=== PATIENT | female | born 1935 | race Caucasian/White ===

== ENCOUNTER 2020-01-22 14:26 | Emergency (ER) | payer MEDICARE ==
--- NOTE | 2020-01-22 14:37 | EDM.PDOC ---
ED HPI GENERAL MEDICAL PROBLEM - General Chief Complaint: Neuro Symptoms/Deficits Stated Complaint: POSSIBLE STROKE Time Seen by Provider: 01/22/20 14:27 - History of Present Illness INITIAL COMMENTS - FREE TEXT/NARRATIVE: 84-year-old female not chronically debilitated but with a history of hypertension and hyperlipidemia is presenting with right sided facial droop. Patient first noticed this yesterday when her mouth leaked while she was trying to drink pop. No dizziness no facial pain no numbness no lightheadedness no dizziness no weakness no difficulty walking no other neurologic symptoms symptoms constant and stable without exacerbating or alleviating factors radiation or other associated symptoms. No prior history of stroke. - Related Data Allergies Allergy/AdvReac Type Severity Reaction Status Date / Time Penicillins Allergy Cannot Verified 01/22/20 14:33 Remember Home Meds: Home Meds Furosemide 20 mg PO DAILY 01/06/16 [History] Losartan Potassium 25 mg PO BEDTIME 01/06/16 [History] Metoprolol Succinate 50 mg PO DAILY 01/06/16 [History] Vitamin E 800 unit PO 01/08/16 [History] atorvaSTATin [Lipitor] 20 mg PO DAILY 01/08/16 [History] Acetaminophen/HYDROcodone [[place] 325-5 MG] 1 tab PO Q6H PRN #60 tablet 01/11/16 [Rx] Aspirin [Aspirin EC] 325 mg PO BID #60 tablet. 01/11/16 [Rx] Docusate Sodium [Colace] 100 mg PO BID #30 cap 01/11/16 [Rx] predniSONE [Prednisone] 50 mg PO DAILY 7 Days #7 tablet 01/22/20 [Rx] valACYclovir [Valtrex] 1,000 mg PO TID #21 tablet 01/22/20 [Rx] Past Medical History HEENT History: Reports: Cataract, Other (See Below) Other HEENT History: Cataracts not matured yet Cardiovascular History: Reports: Hypertension Other Cardiovascular History: Hypertension, Hypertensive heart disease Respiratory History: Reports: Asthma Other Respiratory History: hx: Smoking, reports Quit over 20 yrs ago Gastrointestinal History: Reports: Chronic Constipation Genitourinary History: Reports: Chronic Renal Insuffiency Musculoskeletal History: Reports: Arthritis, Osteoarthritis Endocrine/Metabolic History: Reports: Obesity/BMI 30+ - Past Surgical History Musculoskeletal Surgical History: Reports: Other (See Below) Social & Family History - Family History : Reports: Other (See Below) Other Family History: renal failure Neurological: Reports: CVA ED ROS GENERAL - Review of Systems Review Of Systems: See Below Free Text/Narrative/Comment: General: No fever. Skin: No rash. Eyes: No vision problems. ENT: No sore throat. Neck: No neck stiffness. Respiratory: No shortness of breath. Cardiac: No chest pain. Gastrointestinal: No nausea, vomiting or abdominal pain. Urinary: No dysuria. Musculoskeletal: No myalgias/arthralgias. Neurologic: Per HPI ED EXAM, GENERAL - Physical Exam Exam: See Below Free Text/Narrative:: General Appearance: No acute distress, appears comfortable Skin: No rash HEENT: Normocephalic/atraumatic, sclera anicteric, mucous membranes moist Neck: Normal range of motion Chest and Lungs: Bilateral breath sounds, clear to auscultation Cardiovascular: Regular rate and rhythm, no murmur Abdomen: Soft, non-tender Back: Normal Musculoskeletal: No edema or tenderness Neurologic: Alert and oriented x3, normal [id number] bilaterally, no visual field cut to confrontation, extraocular movements intact, right-sided facial droop that involves the forehead, equal strength bilateral upper and lower extremities Psychiatric: Appropriate, cooperative EKG INTERPRETATION EKG Date: 01/22/20 Time: 15:02 EKG Interpretation Comments: Normal sinus rhythm rate of 92 Q waves inferiorly normal intervals no acute ischemia Course - Vital Signs Last Recorded V/S: Last Vital Signs Temp 97.8 F 01/22/20 14:28 Pulse 90 01/22/20 14:28 Resp 18 01/22/20 14:28 BP 140/59 L 01/22/20 14:28 Pulse Ox 92 L 01/22/20 14:28 - Orders/Labs/Meds Orders: Active Orders 24 hr Category Date Time Status Assess Neurological Status [RC] ASDIRECTED Care 01/22/20 14:35 Active EKG Documentation Completion [RC] STAT Care 01/22/20 14:35 Active Height and Weight [RC] UPON Care 01/22/20 14:35 Active Initiate Acute Stroke Protocol [RC] STAT Care 01/22/20 14:35 Active NIH Stroke Scale [RC] ASDIRECTED Care 01/22/20 14:35 Active Nursing Bedside Swallow Screen [RC] ASDIRECTED Care 01/22/20 14:35 Active Stroke Education, General [RC] Click to Edit Care 01/22/20 14:35 Active Labs: Laboratory Tests 01/22/20 01/22/20 01/22/20 Range/Units 15:05 15:05 15:05 WBC 5.86 (4.0-11.0) K/uL RBC 4.89 (4.30-5.90) M/uL Hgb 14.3 (12.0-16.0) g/dL Hct 44.3 (36.0-46.0) % MCV 90.6 (80.0-98.0) fL MCH 29.2 (27.0-32.0) pg MCHC 32.3 (31.0-37.0) g/dL RDW Std Deviation 47.1 (28.0-62.0) fl RDW Coeff of Win 14 (11.0-15.0) % Plt Count 129 L (150-400) K/uL MPV 9.90 (7.40-12.00) fL Neut % (Auto) 61.8 (48.0-80.0) % Lymph % (Auto) 30.0 (16.0-40.0) % [place] % (Auto) 6.5 (0.0-15.0) % Eos % (Auto) 1.4 (0.0-7.0) % Baso % (Auto) 0.3 (0.0-1.5) % Neut # (Auto) 3.6 (1.4-5.7) K/uL Lymph # (Auto) 1.8 (0.6-2.4) K/uL [place] # (Auto) 0.4 (0.0-0.8) K/uL Eos # (Auto) 0.1 (0.0-0.7) K/uL Baso # (Auto) 0.0 (0.0-0.1) K/uL Nucleated RBC % 0.0 /100WBC Nucleated RBCs # 0 K/uL INR 1.06 APTT 23.4 (18.6-31.3) SEC Sodium 142 (136-145) mmol/L Potassium 4.3 (3.5-5.1) mmol/L Chloride 108 H (98-107) mmol/L Carbon Dioxide 23.1 (21.0-32.0) mmol/L BUN 24 H (7.0-18.0) mg/dL Creatinine 1.7 H (0.6-1.0) mg/dL Est Cr Clr Drug Dosing 16.47 mL/min Estimated GFR (MDRD) 28.5 ml/min Glucose 128 H (74-106) mg/dL Calcium 8.5 (8.5-10.1) mg/dL Total Bilirubin 0.7 (0.2-1.0) mg/dL AST 22 (15-37) IU/L ALT 23 (14-63) IU/L Alkaline Phosphatase 78 (46-116) U/L Troponin I < 0.050 (0.000-0.056) ng/mL Total Protein 7.1 (6.4-8.2) g/dL Albumin 3.8 (3.4-5.0) g/dL Globulin 3.3 (2.6-4.0) g/dL Albumin/Globulin Ratio 1.2 (0.9-1.6) Free T4 (0.76-1.46) ng/dL TSH 3rd Generation 5.92 H (0.36-3.74) uIU/mL 01/22/20 Range/Units 15:05 WBC (4.0-11.0) K/uL RBC (4.30-5.90) M/uL Hgb (12.0-16.0) g/dL Hct (36.0-46.0) % MCV (80.0-98.0) fL MCH (27.0-32.0) pg MCHC (31.0-37.0) g/dL RDW Std Deviation (28.0-62.0) fl RDW Coeff of Win (11.0-15.0) % Plt Count (150-400) K/uL MPV (7.40-12.00) fL Neut % (Auto) (48.0-80.0) % Lymph % (Auto) (16.0-40.0) % [place] % (Auto) (0.0-15.0) % Eos % (Auto) (0.0-7.0) % Baso % (Auto) (0.0-1.5) % Neut # (Auto) (1.4-5.7) K/uL Lymph # (Auto) (0.6-2.4) K/uL [place] # (Auto) (0.0-0.8) K/uL Eos # (Auto) (0.0-0.7) K/uL Baso # (Auto) (0.0-0.1) K/uL Nucleated RBC % /100WBC Nucleated RBCs # K/uL INR APTT (18.6-31.3) SEC Sodium (136-145) mmol/L Potassium (3.5-5.1) mmol/L Chloride (98-107) mmol/L Carbon Dioxide (21.0-32.0) mmol/L BUN (7.0-18.0) mg/dL Creatinine (0.6-1.0) mg/dL Est Cr Clr Drug Dosing mL/min Estimated GFR (MDRD) ml/min Glucose (74-106) mg/dL Calcium (8.5-10.1) mg/dL Total Bilirubin (0.2-1.0) mg/dL AST (15-37) IU/L ALT (14-63) IU/L Alkaline Phosphatase (46-116) U/L Troponin I (0.000-0.056) ng/mL Total Protein (6.4-8.2) g/dL Albumin (3.4-5.0) g/dL Globulin (2.6-4.0) g/dL Albumin/Globulin Ratio (0.9-1.6) Free T4 0.90 (0.76-1.46) ng/dL TSH 3rd Generation (0.36-3.74) uIU/mL Departure - Departure Time of Disposition: 16:28 Disposition: Home, Self-Care 01 Condition: Good Clinical Impression: John's palsy - Discharge Information *PRESCRIPTION DRUG MONITORING PROGRAM REVIEWED*: Not Applicable *COPY OF PRESCRIPTION DRUG MONITORING REPORT IN PATIENT CARMELA: Not Applicable Prescriptions: predniSONE [Prednisone] 50 mg PO DAILY 7 Days #7 tablet valACYclovir [Valtrex] 1,000 mg PO TID #21 tablet Instructions: John Palsy, Adult Referrals: Louie Scruggs MD [Primary Care Provider] - 1 Week Forms: ED Department Discharge Additional Instructions: Please apply the antibiotic ointment to your eye each night and tape your eye lid shut. This will prevent your eye from drying out. Please be sure to follow-up with your primary care doctor. Sepsis Event Note (ED) - Focused Exam Vital Signs: Vital Signs Temp Pulse Resp BP Pulse Ox 01/22/20 14:28 97.8 F 90 18 140/59 L 92 L - My Orders Last 24 Hours: My Active Orders 01/22/20 14:35 Assess Neurological Status [RC] ASDIRECTED EKG Documentation Completion [RC] STAT Height and Weight [RC] UPON Initiate Acute Stroke Protocol [RC] STAT NIH Stroke Scale [RC] ASDIRECTED Nursing Bedside Swallow Screen [RC] ASDIRECTED Stroke Education, General [RC] Click to Edit - Assessment/Plan Last 24 Hours: My Active Orders 01/22/20 14:35 Assess Neurological Status [RC] ASDIRECTED EKG Documentation Completion [RC] STAT Height and Weight [RC] UPON Initiate Acute Stroke Protocol [RC] STAT NIH Stroke Scale [RC] ASDIRECTED Nursing Bedside Swallow Screen [RC] ASDIRECTED Stroke Education, General [RC] Click to Edit Assessment:: 84-year-old female with stroke risk factors presenting with signs and symptoms that are most consistent with John's palsy. Attempt to clinically exclude stroke was made by testing the sensation of taste on its lateral tongue however the patient had difficulty with this test and the test does not clearly conclusive. Given this and her advanced age and stroke history and stroke evaluation with EKG relevant blood work and CT scan is prudent. That said her clinical syndrome is so consistent with John's palsy that I would not admit the patient for further work-up unless something was found on the initial evaluation. If the initial evaluation is negative patient will be able to go home with John's palsy treatment and primary care follow-up. Labs are normal CT scan is normal will treat for John's palsy patient will follow-up with her primary care doctor.
--- NOTE | 2020-01-22 15:07 | CT ---
Head CT Technique: Multiple axial sections through the brain were obtained. Intravenous contrast was not utilized. Comparison: No prior intracranial imaging is available. Findings: Ventricles along with basal cisterns and sulci over convexities are mildly prominent. No abnormal parenchymal densities are seen. No evidence of intracranial hemorrhage. No midline shift or mass-effect is seen. Atherosclerotic plaque is seen within the carotid siphon. Bone window setting showed no acute calvarial finding. Visualized paranasal sinuses and mastoid sinuses show nothing acute. Impression: 1. Mild senescent change. 2. No acute intracranial abnormality is identified. Diagnostic code #2 This report was dictated in MDT
[2020-01-22 15:45] LABS: BLOOD UREA NITROGEN,BUN 24 mg/dL (7.0-18.0); CARBON DIOXIDE,CO2 23.1 mmol/L (21.0-32.0); CHLORIDE,CL 108 mmol/L (98-107); GLUCOSE RANDOM 128 mg/dL (74-106); POTASSIUM,K 4.3 mmol/L (3.5-5.1); SODIUM,NA 142 mmol/L (136-145)
[2020-01-22] MEDS ORDERED: Erythromycin Base 0.5% Ophth Oint 1 GM Tube EYEBOTH ONE (16:30)
[2020-01-23 01:28] VITALS: BP 127/83; PULSE 97
== END 2020-01-22 16:55 | disposition home or self-care (01) ==
LOC: MW.ED 14:26
DX: G51.0 Bell's palsy (principal); M19.90 Unspecified osteoarthritis, unspecified site; I12.9 Hypertensive chronic kidney disease with stage 1 through stage 4 chronic kidney disease, or unspecified chronic kidney disease; N18.9 Chronic kidney disease, unspecified; E66.9 Obesity, unspecified; Z68.35 Body mass index [BMI] 35.0-35.9, adult; Z88.0 Allergy status to penicillin; Z79.82 Long term (current) use of aspirin; Z79.899 Other long term (current) drug therapy
CPT/HCPCS: 36415; 70450; 80053; 84439; 84443; 84484; 85025; 85610; 85730; 93005; 99284; A9270

== ENCOUNTER 2021-04-02 11:30 | Inpatient (IN) | payer MEDICARE ==
[2021-04-02] MEDS ORDERED: Dexamethasone 10 MG/ML SDV IVPUSH ONE (11:39)
[2021-04-02] MEDS ORDERED: Sodium Chloride 0.9% 10 ML Syringe FLUSH PRN (11:39)
[2021-04-02] MEDS ORDERED: Sodium Chloride 0.9% 2.5 ML Syringe FLUSH PRN (11:39)
[2021-04-02] MEDS ORDERED: Albuterol/Ipratropium 3.0-0.5 MG/3 ML Neb Soln NEB ONE (11:39)
--- NOTE | 2021-04-02 12:33 | CR ---
INDICATION: Dyspnea COMPARISON: None TECHNIQUE: Single-view portable chest radiograph FINDINGS: TUBES AND LINES: None. HEART AND MEDIASTINUM: The heart size is normal. The mediastinal contour appears normal for patient age. LUNGS AND PLEURAL SPACES: Given soft tissue attenuation factors, the lungs appear to be clear.The pleural spaces are unremarkable. OSSEOUS STRUCTURES: Age-appropriate appearance. No acute focal finding. IMPRESSION: No evidence of active pulmonary disease. Dictated by Caesar Stone MD @ 04/02/2021 12:31:51 PM (Electronically Signed)
[2021-04-02 13:14] LABS: CORONAVIRUS COVID-19 NAA POSITIVE (NEGATIVE); INFLUENZA A NAA NEGATIVE (NEGATIVE); INFLUENZA B NAA NEGATIVE (NEGATIVE)
[2021-04-02 14:30] LABS: CARBON DIOXIDE,CO2 16.6 mmol/L (21.0-32.0); POTASSIUM,K 4.6 mmol/L (3.5-5.1)
[2021-04-02] MEDS ORDERED: Sodium Chloride 0.9% 1,000 ML IV ONE (14:49)
[2021-04-02] MEDS ORDERED: REMDESIVIR 200 MG in Sodium Chloride 0.9% 250 ML IV ONE (14:54)
[2021-04-02] MEDS ORDERED: Sodium Chloride 0.9% 500 ML IV SCH (15:45)
[2021-04-02] MEDS: Metoprolol Succinate 50 MG Tab.ER PO SCH (16:16)
[2021-04-02] MEDS: amLODIPine 5 MG Tab PO SCH (16:16)
[2021-04-02] MEDS: Apixaban 5 MG Tab PO SCH (17:16)
[2021-04-02] MEDS: Nystatin Topical Powder 15 GM Bottle TOP SCH ×2 (17:18→21:06)
[2021-04-02] MEDS: Dexamethasone 4 MG Tab PO SCH (18:51)
[2021-04-02] MEDS: Albuterol/Ipratropium 3.0-0.5 MG/3 ML Neb Soln NEB SCH ×2 (18:52→21:06)
[2021-04-03] MEDS: Albuterol/Ipratropium 3.0-0.5 MG/3 ML Neb Soln NEB SCH ×4 (01:59→13:32)
[2021-04-03] MEDS: Apixaban 5 MG Tab PO SCH (06:14)
[2021-04-03] MEDS: Nystatin Topical Powder 15 GM Bottle TOP SCH ×2 (06:14→13:32)
[2021-04-03] MEDS ORDERED: Losartan 50 MG Tab PO SCH (09:00)
[2021-04-03] MEDS: Dexamethasone 4 MG Tab PO SCH (09:16)
[2021-04-03] MEDS: Metoprolol Succinate 50 MG Tab.ER PO SCH (09:17)
[2021-04-03] MEDS: amLODIPine 5 MG Tab PO SCH (09:18)
[2021-04-03] MEDS ORDERED: REMDESIVIR 100 MG in Sodium Chloride 0.9% 100 ML IV SCH (14:30)
[2021-04-03 14:50] VITALS: BP 143/65; PULSE 76
== END 2021-04-03 14:10 | disposition home or self-care (01) | DRG 177 ==
LOC: MW.ED 11:30 → MW.MS 15:11
PROVIDERS: ADMIT Internal Medicine; ATTEND Internal Medicine
PROC: XW033E5 Introduction of Remdesivir Anti-infective into Peripheral Vein, Percutaneous Approach, New Technology Group 5 (ICD-10-PCS; principal; 2021-04-02)
PROC: 3E0333Z Introduction of Anti-inflammatory into Peripheral Vein, Percutaneous Approach (ICD-10-PCS; 2021-04-02)
DX: U07.1 COVID-19 (principal); J12.82 Pneumonia due to coronavirus disease 2019; J96.01 Acute respiratory failure with hypoxia; N17.9 Acute kidney failure, unspecified; Z87.891 Personal history of nicotine dependence; E78.5 Hyperlipidemia, unspecified; I12.9 Hypertensive chronic kidney disease with stage 1 through stage 4 chronic kidney disease, or unspecified chronic kidney disease; J45.909 Unspecified asthma, uncomplicated; M19.90 Unspecified osteoarthritis, unspecified site; E66.9 Obesity, unspecified; Z88.0 Allergy status to penicillin; Z79.899 Other long term (current) drug therapy; K59.09 Other constipation; E86.0 Dehydration; E11.22 Type 2 diabetes mellitus with diabetic chronic kidney disease; I13.10 Hypertensive heart and chronic kidney disease without heart failure, with stage 1 through stage 4 chronic kidney disease, or unspecified chronic kidney disease; N18.9 Chronic kidney disease, unspecified; Z98.42 Cataract extraction status, left eye; Z98.41 Cataract extraction status, right eye; Z90.49 Acquired absence of other specified parts of digestive tract; Z90.710 Acquired absence of both cervix and uterus; Z79.4 Long term (current) use of insulin
CPT/HCPCS: 0240U; 36415; 36600; 71045; 80053; 82803; 83605; 83880; 84484; 85025; 85379; 93005; 97161; 97165; 96374; 99285-25; A9270-GY; J1100; J7030; J7040; J7050; J7620-GY; J8540

== ENCOUNTER 2021-04-07 19:43 | Inpatient (IN) | payer MEDICARE ==
--- NOTE | 2021-04-07 20:48 | EDM.PDOC ---
ED HPI GENERAL MEDICAL PROBLEM - General Chief Complaint: Respiratory Problem Stated Complaint: COVID PNEUMONIA, WEAKNESSS Time Seen by Provider: 04/07/21 19:50 Source of Information: Reports: Patient History Limitations: Reports: No Limitations - History of Present Illness INITIAL COMMENTS - FREE TEXT/NARRATIVE: Patient presents via EMS. Her daughter called the ambulance because her mom has become increasingly sleepy, forgetful and less responsive today. The patient was seen in this emergency room on April 02, 2021 for shortness of breath, weakness, malaise and occasional cough after recently being diagnosed with Covid. In the emergency room her white count was 4.9, D-dimer 6.5, lactic acid 2.1, BUN 91, creatinine 3.4. Blood gases pH 7.3, PCO2 26, P O2 57, bicarb 15, anion gap 16. Influenza negative. Covid positive. EKG with nonspecific changes, mildly tachycardic at 110. Pulse ox was 89 to 92% on room air. Admitted to hospitalist service for Covid pneumonia and acute renal failure. The patient was treated with dexamethasone oral, DuoNeb, remdesivir. Her oxygen saturation was over 90% the majority of time as inpatient. Walking trial over 90% so she was discharged to home on April 03. Her daughter states that when she got home she did very well the first couple of days being up and about, eating drinking and voiding without problems. Late yesterday and today she has progressively gotten more sleepy and had to be repeatedly coached to take her medications even though they were in her hand. On admission the patient is able to tell me her birthdate and where she is. She is quite sleepy and requires repeated questioning to keep her awake enough to answer. She denies any chest pain, shortness of breath, abdominal pain, nausea, dysuria. She states she had a good bowel movement today. Her daughter states she has never complained of anything in her life so she is an unreliable informant. Her daughter also states that previous to her hospitalization the family believes she was not taking her medications. Since she came home from the hospital however her family has set up her medications and watched her take them. - Related Data Allergies Allergy/AdvReac Type Severity Reaction Status Date / Time Penicillins Allergy Cannot Verified 04/07/21 19:55 Remember Home Meds: Home Meds Losartan Potassium 50 mg PO BEDTIME 01/06/16 [History] Metoprolol Succinate 50 mg PO DAILY 01/06/16 [History] atorvaSTATin [Lipitor] 20 mg PO BEDTIME 04/02/21 [History] Erythromycin Base [Erythromycin 0.5% Ophth Oint] 1 dose DAILY 04/07/21 [History] amLODIPine [Norvasc] 5 mg PO DAILY 04/07/21 [History] Past Medical History HEENT History: Reports: Cataract, Other (See Below) Other HEENT History: Cataracts not matured yet Cardiovascular History: Reports: Hypertension Other Cardiovascular History: Hypertension, Hypertensive heart disease Respiratory History: Reports: None Other Respiratory History: hx: Smoking, reports Quit over 20 yrs ago Gastrointestinal History: Reports: Chronic Constipation Genitourinary History: Reports: Chronic Renal Insuffiency Musculoskeletal History: Reports: Arthritis, Osteoarthritis Neurological History: Reports: None Endocrine/Metabolic History: Reports: Obesity/BMI 30+ Dermatologic History: Reports: None, Other (See Below) Other Dermatologic History: Yeast under bilateral breasts - Infectious Disease History Infectious Disease History: Reports: Measles, Mumps - Past Surgical History HEENT Surgical History: Reports: Cataract Surgery GI Surgical History: Reports: Appendectomy Female Surgical History: Reports: Hysterectomy Other Female Surgeries/Procedures: reports Vaginal Hysterectomy Musculoskeletal Surgical History: Reports: Other (See Below) Other Musculoskeletal Surgeries/Procedures:: Bilateral RTC repairs Social & Family History - Family History Family Medical History: No Pertinent Family History : Reports: Other (See Below) Other Family History: renal failure Neurological: Reports: CVA - Tobacco Use Tobacco Use Status *Q: Former Tobacco User Used Tobacco, but Quit: Yes Month/Year Tobacco Last Used: 10 - Caffeine Use Caffeine Use: Reports: Coffee - Recreational Drug Use Recreational Drug Use: No ED ROS GENERAL - Review of Systems Review Of Systems: Comprehensive ROS is negative, except as noted in HPI. Skin: Reports: Other (extremely dry skin on legs.) ED EXAM, GENERAL - Physical Exam Exam: See Below Exam Limited By: Altered Mental Status General Appearance: Other (sleepy) Nose: Normal Inspection Throat/Mouth: Normal Inspection Head: Atraumatic, Normocephalic Neck: Normal Inspection Respiratory/Chest: No Respiratory Distress, Lungs Clear, Normal Breath Sounds, Other (O2sat 88% on room air on admission, 93% on O2 4 L/m) Cardiovascular: Normal Peripheral Pulses, Regular Rate, Rhythm, No Murmur GI/Abdominal: Normal Bowel Sounds, Soft, Non-Tender, No Distention Extremities: Normal Inspection, No Pedal Edema Neurological: Oriented Psychiatric: Normal Affect, Normal Mood Skin Exam: Warm, Dry, Intact, Normal Color, No Rash Lymphatic: No Adenopathy Course - Vital Signs Last Recorded V/S: Last Vital Signs Temp 36.6 C 04/07/21 19:59 Pulse 71 04/07/21 21:33 Resp 20 04/07/21 21:33 BP 151/75 H 04/07/21 21:33 Pulse Ox 94 L 04/07/21 21:33 - Orders/Labs/Meds Orders: Active Orders 24 hr Category Date Time Status Patient Status [ADT] Stat ADT 04/07/21 22:07 Active CULTURE BLOOD [BC] Stat Lab 04/07/21 20:48 Results CULTURE BLOOD [BC] Stat Lab 04/07/21 20:54 Received Labs: Laboratory Tests 04/07/21 04/07/21 04/07/21 Range/Units 20:54 20:54 20:54 WBC 7.09 (4.0-11.0) K/uL RBC 5.70 (4.30-5.90) M/uL Hgb 16.7 H (12.0-16.0) g/dL Hct 49.8 H (36.0-46.0) % MCV 87.4 (80.0-98.0) fL MCH 29.3 (27.0-32.0) pg MCHC 33.5 (31.0-37.0) g/dL RDW Std Deviation 50.1 (28.0-62.0) fl RDW Coeff of Win 16 H (11.0-15.0) % Plt Count 141 L (150-400) K/uL MPV 10.70 (7.40-12.00) fL Neut % (Auto) 90.9 H (48.0-80.0) % Lymph % (Auto) 4.2 L (16.0-40.0) % [place] % (Auto) 4.8 (0.0-15.0) % Eos % (Auto) 0.0 (0.0-7.0) % Baso % (Auto) 0.1 (0.0-1.5) % Neut # (Auto) 6.4 H (1.4-5.7) K/uL Lymph # (Auto) 0.3 L (0.6-2.4) K/uL [place] # (Auto) 0.3 (0.0-0.8) K/uL Eos # (Auto) 0.0 (0.0-0.7) K/uL Baso # (Auto) 0.0 (0.0-0.1) K/uL Nucleated RBC % 0.0 /100WBC Nucleated RBCs # 0 K/uL Sodium 140 (136-145) mmol/L Potassium 5.6 H (3.5-5.1) mmol/L Chloride 107 (98-107) mmol/L Carbon Dioxide 20.8 L (21.0-32.0) mmol/L BUN 63 H (7.0-18.0) mg/dL Creatinine 2.0 H (0.6-1.0) mg/dL Est Cr Clr Drug Dosing TNP Estimated GFR (MDRD) 23.6 ml/min Glucose 231 H (74-106) mg/dL Lactic Acid 2.0 (0.4-2.0) mmol/L Calcium 8.5 (8.5-10.1) mg/dL Total Bilirubin 1.2 H (0.2-1.0) mg/dL AST 33 (15-37) IU/L ALT 56 (14-63) IU/L Alkaline Phosphatase 64 (46-116) U/L Troponin I < 0.050 (0.000-0.056) ng/mL Total Protein 7.5 (6.4-8.2) g/dL Albumin 3.1 L (3.4-5.0) g/dL Globulin 4.4 H (2.6-4.0) g/dL Albumin/Globulin Ratio 0.7 L (0.9-1.6) Urine Color Urine Appearance Urine pH (5.0-8.0) Ur Specific [place] (1.001-1.035) Urine Protein (NEGATIVE) mg/dL Urine Glucose (UA) (NEGATIVE) mg/dL Urine Ketones (NEGATIVE) mg/dL Urine Occult Blood (NEGATIVE) Urine Nitrite (NEGATIVE) Urine Bilirubin (NEGATIVE) Urine Urobilinogen (<2.0) EU/dL Ur Leukocyte Esterase (NEGATIVE) U Hyaline Cast (Auto) (0-2/LPF) Urine RBC (0-2/HPF) Urine WBC (0-5/HPF) Ur Epithelial Cells (NONE-FEW) Urine Bacteria (NEGATIVE) 04/07/21 Range/Units 21:25 WBC (4.0-11.0) K/uL RBC (4.30-5.90) M/uL Hgb (12.0-16.0) g/dL Hct (36.0-46.0) % MCV (80.0-98.0) fL MCH (27.0-32.0) pg MCHC (31.0-37.0) g/dL RDW Std Deviation (28.0-62.0) fl RDW Coeff of Win (11.0-15.0) % Plt Count (150-400) K/uL MPV (7.40-12.00) fL Neut % (Auto) (48.0-80.0) % Lymph % (Auto) (16.0-40.0) % [place] % (Auto) (0.0-15.0) % Eos % (Auto) (0.0-7.0) % Baso % (Auto) (0.0-1.5) % Neut # (Auto) (1.4-5.7) K/uL Lymph # (Auto) (0.6-2.4) K/uL [place] # (Auto) (0.0-0.8) K/uL Eos # (Auto) (0.0-0.7) K/uL Baso # (Auto) (0.0-0.1) K/uL Nucleated RBC % /100WBC Nucleated RBCs # K/uL Sodium (136-145) mmol/L Potassium (3.5-5.1) mmol/L Chloride (98-107) mmol/L Carbon Dioxide (21.0-32.0) mmol/L BUN (7.0-18.0) mg/dL Creatinine (0.6-1.0) mg/dL Est Cr Clr Drug Dosing Estimated GFR (MDRD) ml/min Glucose (74-106) mg/dL Lactic Acid (0.4-2.0) mmol/L Calcium (8.5-10.1) mg/dL Total Bilirubin (0.2-1.0) mg/dL AST (15-37) IU/L ALT (14-63) IU/L Alkaline Phosphatase (46-116) U/L Troponin I (0.000-0.056) ng/mL Total Protein (6.4-8.2) g/dL Albumin (3.4-5.0) g/dL Globulin (2.6-4.0) g/dL Albumin/Globulin Ratio (0.9-1.6) Urine Color YELLOW Urine Appearance HAZY Urine pH 5.5 (5.0-8.0) Ur Specific [place] 1.025 (1.001-1.035) Urine Protein 30 H (NEGATIVE) mg/dL Urine Glucose (UA) NEGATIVE (NEGATIVE) mg/dL Urine Ketones NEGATIVE (NEGATIVE) mg/dL Urine Occult Blood NEGATIVE (NEGATIVE) Urine Nitrite NEGATIVE (NEGATIVE) Urine Bilirubin NEGATIVE (NEGATIVE) Urine Urobilinogen 1.0 (<2.0) EU/dL Ur Leukocyte Esterase NEGATIVE (NEGATIVE) U Hyaline Cast (Auto) 0-1 (0-2/LPF) Urine RBC 0-2 (0-2/HPF) Urine WBC 0-4 (0-5/HPF) Ur Epithelial Cells OCCASIONAL (NONE-FEW) Urine Bacteria FEW (NEGATIVE) - Re-Assessments/Exams Free Text/Narrative Re-Assessment/Exam: 04/07/21 22:[address] Bao Zimmer, hospitalist service regarding admission. Refer to observation. Departure - Departure Time of Disposition: 22:16 Disposition: Refer to Observation Condition: Good Clinical Impression: Hypoxia - Discharge Information Forms: ED Department Discharge Sepsis Event Note (ED) - Evaluation Sepsis Screening Result: No Definite Risk - Focused Exam Vital Signs: Vital Signs Temp Pulse Resp BP Pulse Ox 04/07/21 21:33 71 20 151/75 H 94 L 04/07/21 20:45 74 20 157/64 H 95 04/07/21 20:30 68 18 147/71 H 94 L 04/07/21 20:15 77 19 153/71 H 95 04/07/21 19:59 36.6 C 85 18 116/57 L 94 L - My Orders Last 24 Hours: My Active Orders 04/07/21 20:48 CULTURE BLOOD [BC] Stat 04/07/21 20:54 CULTURE BLOOD [BC] Stat 04/07/21 22:07 Patient Status [ADT] Stat - Assessment/Plan Last 24 Hours: My Active Orders 04/07/21 20:48 CULTURE BLOOD [BC] Stat 04/07/21 20:54 CULTURE BLOOD [BC] Stat 04/07/21 22:07 Patient Status [ADT] Stat
[2021-04-07 21:33] LABS: BLOOD UREA NITROGEN,BUN 63 mg/dL (7.0-18.0); CARBON DIOXIDE,CO2 20.8 mmol/L (21.0-32.0); CHLORIDE,CL 107 mmol/L (98-107); GLUCOSE RANDOM 231 mg/dL (74-106); POTASSIUM,K 5.6 mmol/L (3.5-5.1); SODIUM,NA 140 mmol/L (136-145)
--- NOTE | 2021-04-07 21:40 | CR ---
Indication: Shortness of breath, COVID infection Technique: Chest 1 view Comparison: Chest x-ray 04/02/2021 Findings/Impression: Cardiovascular and mediastinum: Normal heart size with atherosclerotic calcification. Lungs and pleural space: No pleural effusion or pneumothorax. Slight patchy opacities at the lung bases suggestive of pneumonia and mildly worsened compared to the prior exam. Bones and soft tissues: Attachment hooks left proximal humerus. Left glenohumeral osteoarthritis. Dictated by Catracho Crooks MD @ 04/07/2021 9:39:38 PM (Electronically Signed)
--- NOTE | 2021-04-08 00:22 | PCM.EKG ---
#1 Interpretation EKG Date: 04/07/21 Time: 20:24 EKG Interpretation Comments: EKG: As interpreted by ER physician: [place]: Nonspecific ST-T wave abnormalities Normal axis No evidence of ST elevation [place] Normal sinus rhythm heart rate of 82
[2021-04-08 07:35] LABS: CARBON DIOXIDE,CO2 20.3 mmol/L (21.0-32.0); POTASSIUM,K 5.2 mmol/L (3.5-5.1)
--- NOTE | 2021-04-08 07:43 | PCM.HP.2 ---
H&P History of Present Illness - General Date of Service: 04/08/21 Admit Problem/Dx: Admission Diagnosis/Problem Admission Diagnosis/Problem Hypoxia - History of Present Illness Initial Comments - Free Text/Narative: The patient is a 85-year-old female, on day 1 of service, who has a significant past medical history of hypertension, hyperlipidemia, and recent COVID-19 infection, was admitted to the medical floor due to generalized weakness secondary to COVID-19 pneumonia. Much of this history was obtained by the patient's daughter, Monica Carty, who admits that after her mother's most recent discharge from the hospital she was acting like herself and doing well for the subsequent 2 to 3 days before she started to feel weak in regards to her activities of daily living. 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 Her mother was also increasingly fatigued and was eating and drinking less than regular. Monica admits that her mother would have to be cued in order to take her medication and to be compliant with them. It came to the point where things became concerning and today she brought her into the emergency department to be checked. The patient has allergies to penicillin, and in regards to her social history she used to smoke cigarettes 20+ years ago and had a [id number] history. She does not consume alcohol or use recreational drugs. On CBC, her white blood cell count is 7.09, hemoglobin is 16.7, hematocrit is 49.8, and platelet count is 141. On CMP, her sodium is 140, potassium is 5.6, chloride is 107, carbon dioxide is 20.8, BUN is 63, creatinine is 2.0, glucose is 231. On chest x-ray, slight patchy opacities are seen in the lung bases which are worse than prior exam. EKG shows normal sinus rhythm. In the emergency department, the patient had 2 different blood cultures drawn and sent for analysis, as well as the above test including a CBC, CMP, chest x- ray, and EKG. - Related Data Allergies/Adverse Reactions: Allergies Allergy/AdvReac Type Severity Reaction Status Date / Time Penicillins Allergy Cannot Verified 04/07/21 23:55 Remember Home Medications: Home Meds Losartan Potassium 50 mg PO BEDTIME 01/06/16 [History] Metoprolol Succinate 50 mg PO DAILY 09/06/16 [History] atorvaSTATin [Lipitor] 20 mg PO BEDTIME 04/02/21 [History] Erythromycin Base [Erythromycin 0.5% Ophth Oint] 1 dose DAILY 04/07/21 [History] amLODIPine [Norvasc] 5 mg PO DAILY 04/07/21 [History] Past Medical History HEENT History: Reports: Cataract, Other (See Below) Other HEENT History: Cataracts not matured yet Cardiovascular History: Reports: High Cholesterol, Hypertension Other Cardiovascular History: Hypertension, Hypertensive heart disease Respiratory History: Reports: None Other Respiratory History: hx: Smoking, reports Quit over 20 yrs ago Gastrointestinal History: Reports: Chronic Constipation Genitourinary History: Reports: Chronic Renal Insuffiency Musculoskeletal History: Reports: Arthritis, Osteoarthritis Neurological History: Reports: None Endocrine/Metabolic History: Reports: Obesity/BMI 30+ Dermatologic History: Reports: None, Other (See Below) Other Dermatologic History: Yeast under bilateral breasts - Infectious Disease History Infectious Disease History: Reports: Measles, Mumps - Past Surgical History HEENT Surgical History: Reports: Cataract Surgery GI Surgical History: Reports: Appendectomy Female Surgical History: Reports: Hysterectomy Musculoskeletal Surgical History: Reports: Other (See Below) Other Musculoskeletal Surgeries/Procedures:: Bilateral RTC repairs Social & Family History - Family History Family Medical History: No Pertinent Family History : Reports: Other (See Below) Other Family History: renal failure Neurological: Reports: CVA - Tobacco Use Tobacco Use Status *Q: Former Tobacco User Used Tobacco, but Quit: Yes Month/Year Tobacco Last Used: 1999 Second Hand Smoke Exposure: No - Caffeine Use Caffeine Use: Reports: Coffee - Recreational Drug Use Recreational Drug Use: No H&P Review of Systems - Review of Systems: Review Of Systems: See Below General: Reports: Other (The patient was too fatigued/sleepy to answer ROS questions, HPI obtained by her daughter Monica Carty) Exam - Exam Exam: See Below - Vital Signs Vital Signs: Last Vital Signs Temp 96.9 F 04/08/21 03:42 Pulse 71 04/08/21 03:42 Resp 22 H 04/08/21 03:42 BP 142/52 H 04/08/21 03:42 Pulse Ox 93 L 04/08/21 03:42 Weight: 191 lb 1.617 oz - Exam General: Lethargic HEENT: Mucosa Moist & [place], Normal Nasal Septum Neck: Trachea Midline Lungs: Decreased Breath Sounds Cardiovascular: Regular Rate, Regular Rhythm GI/Abdominal Exam: Normal Bowel Sounds, Soft, Non-Tender Extremities: No Pedal Edema - Patient Data Lab Results Last 24 hrs: Laboratory Results - last 24 hr 04/07/21 04/07/21 04/07/21 Range/Units 20:54 20:54 20:54 WBC 7.09 (4.0-11.0) K/uL RBC 5.70 (4.30-5.90) M/uL Hgb 16.7 H (12.0-16.0) g/dL Hct 49.8 H (36.0-46.0) % MCV 87.4 (80.0-98.0) fL MCH 29.3 (27.0-32.0) pg MCHC 33.5 (31.0-37.0) g/dL RDW Std Deviation 50.1 (28.0-62.0) fl RDW Coeff of Win 16 H (11.0-15.0) % Plt Count 141 L (150-400) K/uL MPV 10.70 (7.40-12.00) fL Neut % (Auto) 90.9 H (48.0-80.0) % Lymph % (Auto) 4.2 L (16.0-40.0) % [place] % (Auto) 4.8 (0.0-15.0) % Eos % (Auto) 0.0 (0.0-7.0) % Baso % (Auto) 0.1 (0.0-1.5) % Neut # (Auto) 6.4 H (1.4-5.7) K/uL Lymph # (Auto) 0.3 L (0.6-2.4) K/uL [place] # (Auto) 0.3 (0.0-0.8) K/uL Eos # (Auto) 0.0 (0.0-0.7) K/uL Baso # (Auto) 0.0 (0.0-0.1) K/uL Nucleated RBC % 0.0 /100WBC Nucleated RBCs # 0 K/uL Sodium 140 (136-145) mmol/L Potassium 5.6 H (3.5-5.1) mmol/L Chloride 107 (98-107) mmol/L Carbon Dioxide 20.8 L (21.0-32.0) mmol/L BUN 63 H (7.0-18.0) mg/dL Creatinine 2.0 H (0.6-1.0) mg/dL Est Cr Clr Drug Dosing TNP Estimated GFR (MDRD) 23.6 ml/min Glucose 231 H (74-106) mg/dL Lactic Acid 2.0 (0.4-2.0) mmol/L Calcium 8.5 (8.5-10.1) mg/dL Total Bilirubin 1.2 H (0.2-1.0) mg/dL AST 33 (15-37) IU/L ALT 56 (14-63) IU/L Alkaline Phosphatase 64 (46-116) U/L Troponin I < 0.050 (0.000-0.056) ng/mL Total Protein 7.5 (6.4-8.2) g/dL Albumin 3.1 L (3.4-5.0) g/dL Globulin 4.4 H (2.6-4.0) g/dL Albumin/Globulin Ratio 0.7 L (0.9-1.6) Urine Color Urine Appearance Urine pH (5.0-8.0) Ur Specific [place] (1.001-1.035) Urine Protein (NEGATIVE) mg/dL Urine Glucose (UA) (NEGATIVE) mg/dL Urine Ketones (NEGATIVE) mg/dL Urine Occult Blood (NEGATIVE) Urine Nitrite (NEGATIVE) Urine Bilirubin (NEGATIVE) Urine Urobilinogen (<2.0) EU/dL Ur Leukocyte Esterase (NEGATIVE) U Hyaline Cast (Auto) (0-2/LPF) Urine RBC (0-2/HPF) Urine WBC (0-5/HPF) Ur Epithelial Cells (NONE-FEW) Urine Bacteria (NEGATIVE) 04/07/21 Range/Units 21:25 WBC (4.0-11.0) K/uL RBC (4.30-5.90) M/uL Hgb (12.0-16.0) g/dL Hct (36.0-46.0) % MCV (80.0-98.0) fL MCH (27.0-32.0) pg MCHC (31.0-37.0) g/dL RDW Std Deviation (28.0-62.0) fl RDW Coeff of Win (11.0-15.0) % Plt Count (150-400) K/uL MPV (7.40-12.00) fL Neut % (Auto) (48.0-80.0) % Lymph % (Auto) (16.0-40.0) % [place] % (Auto) (0.0-15.0) % Eos % (Auto) (0.0-7.0) % Baso % (Auto) (0.0-1.5) % Neut # (Auto) (1.4-5.7) K/uL Lymph # (Auto) (0.6-2.4) K/uL [place] # (Auto) (0.0-0.8) K/uL Eos # (Auto) (0.0-0.7) K/uL Baso # (Auto) (0.0-0.1) K/uL Nucleated RBC % /100WBC Nucleated RBCs # K/uL Sodium (136-145) mmol/L Potassium (3.5-5.1) mmol/L Chloride (98-107) mmol/L Carbon Dioxide (21.0-32.0) mmol/L BUN (7.0-18.0) mg/dL Creatinine (0.6-1.0) mg/dL Est Cr Clr Drug Dosing Estimated GFR (MDRD) ml/min Glucose (74-106) mg/dL Lactic Acid (0.4-2.0) mmol/L Calcium (8.5-10.1) mg/dL Total Bilirubin (0.2-1.0) mg/dL AST (15-37) IU/L ALT (14-63) IU/L Alkaline Phosphatase (46-116) U/L Troponin I (0.000-0.056) ng/mL Total Protein (6.4-8.2) g/dL Albumin (3.4-5.0) g/dL Globulin (2.6-4.0) g/dL Albumin/Globulin Ratio (0.9-1.6) Urine Color YELLOW Urine Appearance HAZY Urine pH 5.5 (5.0-8.0) Ur Specific [place] 1.025 (1.001-1.035) Urine Protein 30 H (NEGATIVE) mg/dL Urine Glucose (UA) NEGATIVE (NEGATIVE) mg/dL Urine Ketones NEGATIVE (NEGATIVE) mg/dL Urine Occult Blood NEGATIVE (NEGATIVE) Urine Nitrite NEGATIVE (NEGATIVE) Urine Bilirubin NEGATIVE (NEGATIVE) Urine Urobilinogen 1.0 (<2.0) EU/dL Ur Leukocyte Esterase NEGATIVE (NEGATIVE) U Hyaline Cast (Auto) 0-1 (0-2/LPF) Urine RBC 0-2 (0-2/HPF) Urine WBC 0-4 (0-5/HPF) Ur Epithelial Cells OCCASIONAL (NONE-FEW) Urine Bacteria FEW (NEGATIVE) Result Diagrams: 04/07/21 20:54 04/08/21 06:35 Paul Results Last 24 hrs: Microbiology 04/07/21 20:48 Anaerobic Blood Culture - Final Blood Sepsis Event Note - Evaluation Sepsis Screening Result: No Definite Risk - Focused Exam Vital Signs: Vital Signs Temp Pulse Resp BP Pulse Ox 04/08/21 03:42 96.9 F 71 22 H 142/52 H 93 L 04/07/21 23:32 98.9 F 74 24 H 166/81 H 93 L 04/07/21 22:45 76 20 151/74 H 95 04/07/21 21:45 70 18 148/71 H 94 L 04/07/21 21:33 71 20 151/75 H 94 L 04/07/21 20:45 74 20 157/64 H 95 04/07/21 20:30 68 18 147/71 H 94 L 04/07/21 20:15 77 19 153/71 H 95 04/07/21 19:59 97.9 F 85 18 116/57 L 94 L - Problem List (1) Weakness SNOMED Code(s): 69377333 ICD Code: R53.1 - WEAKNESS Status: Acute Current Visit: Yes (2) HTN (hypertension) SNOMED Code(s): 49453995 ICD Code: I10 - ESSENTIAL (PRIMARY) HYPERTENSION Status: Acute Current Visit: Yes (3) Hyperlipidemia SNOMED Code(s): 33817544 ICD Code: E78.5 - HYPERLIPIDEMIA, UNSPECIFIED Status: Acute Current Visit: Yes (4) Acute renal failure SNOMED Code(s): 63062125 ICD Code: N17.9 - ACUTE KIDNEY FAILURE, UNSPECIFIED Status: Acute Current Visit: No (5) Acute respiratory failure due to COVID-19 SNOMED Code(s): 587521675 ICD Code: U07.1 - COVID-19; J96.00 - ACUTE RESPIRATORY FAILURE, UNSP W HYPOXIA OR HYPERCAPNIA Status: Acute Current Visit: No Problem List Initiated/Reviewed/Updated: Yes Orders Last 24hrs: Active Orders 24 hr Category Date Time Status Patient Status [ADT] Stat ADT 04/07/21 22:07 Active Regular Diet [DIET] Diet 04/08/21 Breakfast Active BASIC METABOLIC PANEL,BMP [CHEM] Routine Lab 04/08/21 05:30 Received CULTURE BLOOD [BC] Stat Lab 04/07/21 20:48 Results CULTURE BLOOD [BC] Stat Lab 04/07/21 20:54 Received dexAMETHasone Med 04/08/21 09:00 Active 6 mg PO DAILY Medication Orders Dexamethasone (Dexamethasone 4 Mg Tab) 6 mg PO DAILY [facility] Assessment/Plan Comment:: Admit the patient to the medical floor, vitals per unit routine, activity up ad sergio., DVT prophylaxis with Lovenox 40 mg once a day subcutaneously, GI prophy laxis with pantoprazole 40 mg per oral route once a day, according to the patient's daughter Monica Carty the patient is a DNI/DNR 1. Generalized weakness secondary to COVID-19 -Initiate remdesivir, 200 mg IV loading dose followed by 4 bags of 100 mg per IV route 24 hours later, 1 bag to be given each day -Start dexamethasone 6 mg -Supply oxygen as needed -Duo nebulizers are on board -PT/OT daily to build strength -CBC in a.m. 2. Hyperglycemia -ADA diabetic diet is in place -Insulin sliding scale/NovoLog 3. STEFANI -We will continue to monitor labs with daily CMP and treat accordingly 4. Past medical history of hypertension and hyperlipidemia -Continue home amlodipine, atorvastatin, losartan, metoprolol
[2021-04-08] MEDS ORDERED: 50% Dextrose in Water 50 ML Syringe IVPUSH PRN (08:15)
[2021-04-08] MEDS ORDERED: Glucagon,Human Recombinant 1 MG Vial IM PRN (08:15)
[2021-04-08] MEDS: Pantoprazole 40 MG Tab.CR PO SCH (09:24)
[2021-04-08] MEDS: Dexamethasone 4 MG Tab PO SCH (09:24)
[2021-04-08] MEDS: Enoxaparin 30 MG/0.3 ML Syringe SUBCUT SCH (09:25)
[2021-04-08] MEDS: Insulin Aspart 100 Units/ML 3 ML Pen SUBCUT SCH ×3 (13:03→21:06)
[2021-04-08] MEDS: Albuterol/Ipratropium 3.0-0.5 MG/3 ML Neb Soln NEB SCH ×3 (14:11→21:04)
[2021-04-08] MEDS ORDERED: REMDESIVIR 200 MG in Sodium Chloride 0.9% 250 ML IV ONE (14:15)
[2021-04-08] MEDS: amLODIPine 5 MG Tab PO SCH (17:34)
[2021-04-08] MEDS: Metoprolol Succinate 50 MG Tab.ER PO SCH (17:34)
[2021-04-08] MEDS: atorvaSTATin 20 MG Tab PO SCH (21:03)
[2021-04-08] MEDS: Losartan 50 MG Tab PO SCH (21:04)
[2021-04-09] MEDS: Albuterol/Ipratropium 3.0-0.5 MG/3 ML Neb Soln NEB SCH ×6 (02:38→21:01)
[2021-04-09 06:33] LABS: CARBON DIOXIDE,CO2 17.4 mmol/L (21.0-32.0); POTASSIUM,K 5.3 mmol/L (3.5-5.1)
[2021-04-09] MEDS: Insulin Aspart 100 Units/ML 3 ML Pen SUBCUT SCH ×4 (07:49→20:59)
[2021-04-09] MEDS: Pantoprazole 40 MG Tab.CR PO SCH (08:08)
[2021-04-09] MEDS: Metoprolol Succinate 50 MG Tab.ER PO SCH (08:08)
[2021-04-09] MEDS: amLODIPine 5 MG Tab PO SCH (08:08)
[2021-04-09] MEDS: Dexamethasone 4 MG Tab PO SCH (08:08)
[2021-04-09] MEDS: Enoxaparin 30 MG/0.3 ML Syringe SUBCUT SCH (08:09)
[2021-04-09] MEDS ORDERED: Sodium Chloride 0.45% 1,000 ML IV SCH (09:45)
--- NOTE | 2021-04-09 11:39 | PCM.PN ---
- General Info Date of Service: 04/09/21 Subjective Update: The patient is a 85-year-old female, on day 2 of service, who has a significant past medical history of hypertension, hyperlipidemia, and recent COVID-19 infection, was admitted to the medical floor due to generalized weakness secondary to COVID-19 pneumonia. Upon interview with the patient today she continues to have weakness and is a poor historian. She was sleeping through much of the interview. Her labs today showed increased amounts of sodium, potassium, and chloride in her blood. As a result she will be started on 500 mL of half-normal saline in order to level these out at a rate of 125 mL/h. She is currently saturating 88% on 2 L of oxygen. She has not been eating her meals and when I attempted to give her some of her breakfast she refused. We will continue to have physical therapy/occupational therapy work with this patient in order to build her strength. The patient continues to have STEFANI. There are no other health concerns at this time. - Review of Systems General: Reports: Other (The patient is a poor historian) - Patient Data Vitals - Most Recent: Last Vital Signs Temp 97 F 04/09/21 11:00 Pulse 88 04/09/21 11:00 Resp 20 04/09/21 11:00 BP 129/69 04/09/21 11:00 Pulse Ox 92 L 04/09/21 11:00 Weight - Most Recent: 191 lb 1.617 oz I&O - Last 24 Hours: Intake & Output 04/08/21 04/09/21 04/09/21 22:59 06:59 14:59 Intake Total 540 Balance 540 Lab Results Last 24 Hours: Laboratory Results - last 24 hr 04/08/21 04/08/21 04/08/21 Range/Units 13:00 17:28 20:57 WBC (4.0-11.0) K/uL RBC (4.30-5.90) M/uL Hgb (12.0-16.0) g/dL Hct (36.0-46.0) % MCV (80.0-98.0) fL MCH (27.0-32.0) pg MCHC (31.0-37.0) g/dL RDW Std Deviation (28.0-62.0) fl RDW Coeff of Win (11.0-15.0) % Plt Count (150-400) K/uL MPV (7.40-12.00) fL Neut % (Auto) (48.0-80.0) % Lymph % (Auto) (16.0-40.0) % [place] % (Auto) (0.0-15.0) % Eos % (Auto) (0.0-7.0) % Baso % (Auto) (0.0-1.5) % Neut # (Auto) (1.4-5.7) K/uL Lymph # (Auto) (0.6-2.4) K/uL [place] # (Auto) (0.0-0.8) K/uL Eos # (Auto) (0.0-0.7) K/uL Baso # (Auto) (0.0-0.1) K/uL Nucleated RBC % /100WBC Nucleated RBCs # K/uL Sodium (136-145) mmol/L Potassium (3.5-5.1) mmol/L Chloride (98-107) mmol/L Carbon Dioxide (21.0-32.0) mmol/L BUN (7.0-18.0) mg/dL Creatinine (0.6-1.0) mg/dL Est Cr Clr Drug Dosing mL/min Estimated GFR (MDRD) ml/min Glucose (74-106) mg/dL POC Glucose 149 H 218 H 266 H (70-99) mg/dL Calcium (8.5-10.1) mg/dL Total Bilirubin (0.2-1.0) mg/dL AST (15-37) IU/L ALT (14-63) IU/L Alkaline Phosphatase (46-116) U/L Total Protein (6.4-8.2) g/dL Albumin (3.4-5.0) g/dL Globulin (2.6-4.0) g/dL Albumin/Globulin Ratio (0.9-1.6) 04/09/21 04/09/21 04/09/21 Range/Units 05:08 05:08 06:13 WBC 8.32 (4.0-11.0) K/uL RBC 5.10 (4.30-5.90) M/uL Hgb 14.7 (12.0-16.0) g/dL Hct 44.7 (36.0-46.0) % MCV 87.6 (80.0-98.0) fL MCH 28.8 (27.0-32.0) pg MCHC 32.9 (31.0-37.0) g/dL RDW Std Deviation 50.9 (28.0-62.0) fl RDW Coeff of Win 16 H (11.0-15.0) % Plt Count 158 (150-400) K/uL MPV 10.60 (7.40-12.00) fL Neut % (Auto) 90.2 H (48.0-80.0) % Lymph % (Auto) 5.3 L (16.0-40.0) % [place] % (Auto) 4.4 (0.0-15.0) % Eos % (Auto) 0.0 (0.0-7.0) % Baso % (Auto) 0.1 (0.0-1.5) % Neut # (Auto) 7.5 H (1.4-5.7) K/uL Lymph # (Auto) 0.4 L (0.6-2.4) K/uL [place] # (Auto) 0.4 (0.0-0.8) K/uL Eos # (Auto) 0.0 (0.0-0.7) K/uL Baso # (Auto) 0.0 (0.0-0.1) K/uL Nucleated RBC % 0.3 /100WBC Nucleated RBCs # 0 K/uL Sodium 146 H (136-145) mmol/L Potassium 5.3 H (3.5-5.1) mmol/L Chloride 113 H (98-107) mmol/L Carbon Dioxide 17.4 L (21.0-32.0) mmol/L BUN 63 H (7.0-18.0) mg/dL Creatinine 2.1 H (0.6-1.0) mg/dL Est Cr Clr Drug Dosing 16.98 mL/min Estimated GFR (MDRD) 22.3 ml/min Glucose 177 H (74-106) mg/dL POC Glucose 168 H (70-99) mg/dL Calcium 8.3 L (8.5-10.1) mg/dL Total Bilirubin 0.9 (0.2-1.0) mg/dL AST 22 (15-37) IU/L ALT 42 (14-63) IU/L Alkaline Phosphatase 52 (46-116) U/L Total Protein 6.7 (6.4-8.2) g/dL Albumin 2.6 L (3.4-5.0) g/dL Globulin 4.1 H (2.6-4.0) g/dL Albumin/Globulin Ratio 0.6 L (0.9-1.6) Paul Results Last 24 Hours: Microbiology 04/07/21 20:54 Aerobic Blood Culture - Preliminary Blood NO GROWTH AFTER 1 DAY Anaerobic Blood Culture - Preliminary NO GROWTH AFTER 1 DAY 04/07/21 20:48 Aerobic Blood Culture - Preliminary Blood NO GROWTH AFTER 1 DAY Anaerobic Blood Culture - Final Med Orders - Current: Current Medications Albuterol/Ipratropium (Albuterol/Ipratropium 3.0-0.5 Mg/3 Ml Neb Soln) 3 ml NEB Q4HRRT [facility] Last Admin: 04/09/21 11:10 Dose: 3 ml Documented by: Amlodipine Besylate (Amlodipine 5 Mg Tab) 5 mg PO DAILY [facility] Last Admin: 04/09/21 08:08 Dose: 5 mg Documented by: Atorvastatin Calcium (Atorvastatin 20 Mg Tab) 20 mg PO BEDTIME [facility] Last Admin: 04/08/21 21:03 Dose: 20 mg Documented by: Dexamethasone (Dexamethasone 4 Mg Tab) 6 mg PO DAILY [facility] Last Admin: 04/09/21 08:08 Dose: 6 mg Documented by: Dextrose/Water (50% Dextrose In Water 50 Ml Syringe) 50 ml IVPUSH ASDIRECTED PRN PRN Reason: Hypoglycemia Enoxaparin Sodium (Enoxaparin 30 Mg/0.3 Ml Syringe) 30 mg SUBCUT Q24H [facility] Last Admin: 04/09/21 08:09 Dose: 30 mg Documented by: Glucagon (Glucagon,Human Recombinant 1 Mg Vial) 1 mg IM ASDIRECTED PRN PRN Reason: Hypoglycemia Remdesivir 100 mg/ Sodium (Chloride) 100 mls @ 100 mls/hr IV Q24H [facility] Stop: 04/12/21 14:59 Sodium Chloride (Sodium Chloride 0.45%) 1,000 mls @ 125 mls/hr IV ASDIRECTED [facility] Last Admin: 04/09/21 09:57 Dose: 125 mls/hr Documented by: Insulin Aspart (Insulin Aspart 100 Units/Ml 3 Ml Pen) 0 unit SUBCUT QIDACANDBED [facility]; Protocol Last Admin: 04/09/21 07:49 Dose: 1 unit Documented by: Losartan Potassium (Losartan 50 Mg Tab) 50 mg PO BEDTIME [facility] Last Admin: 04/08/21 21:04 Dose: 50 mg Documented by: Metoprolol Succinate (Metoprolol Succinate 50 Mg Tab.Er) 50 mg PO DAILY [facility] Last Admin: 04/09/21 08:08 Dose: 50 mg Documented by: Pantoprazole Sodium (Pantoprazole 40 Mg Tab.Cr) 40 mg PO DAILY [facility] Last Admin: 04/09/21 08:08 Dose: 40 mg Documented by: Discontinued Medications Remdesivir 200 mg/ Sodium (Chloride) 250 mls @ 250 mls/hr IV ONETIME ONE Stop: 04/08/21 15:14 Last Admin: 04/08/21 14:51 Dose: 250 mls/hr Documented by: - Exam General: No Acute Distress, Lethargic HEENT: No: Mucous Membr. Moist/[place] Neck: Trachea Midline Lungs: Clear to Auscultation, Normal Respiratory Effort Cardiovascular: Regular Rate, Regular Rhythm, No Murmurs GI/Abdominal Exam: Normal Bowel Sounds, Soft, Non-Tender - Patient Data Lab Results Last 24 hrs: Laboratory Results - last 24 hr 04/08/21 04/08/21 04/08/21 Range/Units 13:00 17:28 20:57 WBC (4.0-11.0) K/uL RBC (4.30-5.90) M/uL Hgb (12.0-16.0) g/dL Hct (36.0-46.0) % MCV (80.0-98.0) fL MCH (27.0-32.0) pg MCHC (31.0-37.0) g/dL RDW Std Deviation (28.0-62.0) fl RDW Coeff of Win (11.0-15.0) % Plt Count (150-400) K/uL MPV (7.40-12.00) fL Neut % (Auto) (48.0-80.0) % Lymph % (Auto) (16.0-40.0) % [place] % (Auto) (0.0-15.0) % Eos % (Auto) (0.0-7.0) % Baso % (Auto) (0.0-1.5) % Neut # (Auto) (1.4-5.7) K/uL Lymph # (Auto) (0.6-2.4) K/uL [place] # (Auto) (0.0-0.8) K/uL Eos # (Auto) (0.0-0.7) K/uL Baso # (Auto) (0.0-0.1) K/uL Nucleated RBC % /100WBC Nucleated RBCs # K/uL Sodium (136-145) mmol/L Potassium (3.5-5.1) mmol/L Chloride (98-107) mmol/L Carbon Dioxide (21.0-32.0) mmol/L BUN (7.0-18.0) mg/dL Creatinine (0.6-1.0) mg/dL Est Cr Clr Drug Dosing mL/min Estimated GFR (MDRD) ml/min Glucose (74-106) mg/dL POC Glucose 149 H 218 H 266 H (70-99) mg/dL Calcium (8.5-10.1) mg/dL Total Bilirubin (0.2-1.0) mg/dL AST (15-37) IU/L ALT (14-63) IU/L Alkaline Phosphatase (46-116) U/L Total Protein (6.4-8.2) g/dL Albumin (3.4-5.0) g/dL Globulin (2.6-4.0) g/dL Albumin/Globulin Ratio (0.9-1.6) 04/09/21 04/09/21 04/09/21 Range/Units 05:08 05:08 06:13 WBC 8.32 (4.0-11.0) K/uL RBC 5.10 (4.30-5.90) M/uL Hgb 14.7 (12.0-16.0) g/dL Hct 44.7 (36.0-46.0) % MCV 87.6 (80.0-98.0) fL MCH 28.8 (27.0-32.0) pg MCHC 32.9 (31.0-37.0) g/dL RDW Std Deviation 50.9 (28.0-62.0) fl RDW Coeff of Win 16 H (11.0-15.0) % Plt Count 158 (150-400) K/uL MPV 10.60 (7.40-12.00) fL Neut % (Auto) 90.2 H (48.0-80.0) % Lymph % (Auto) 5.3 L (16.0-40.0) % [place] % (Auto) 4.4 (0.0-15.0) % Eos % (Auto) 0.0 (0.0-7.0) % Baso % (Auto) 0.1 (0.0-1.5) % Neut # (Auto) 7.5 H (1.4-5.7) K/uL Lymph # (Auto) 0.4 L (0.6-2.4) K/uL [place] # (Auto) 0.4 (0.0-0.8) K/uL Eos # (Auto) 0.0 (0.0-0.7) K/uL Baso # (Auto) 0.0 (0.0-0.1) K/uL Nucleated RBC % 0.3 /100WBC Nucleated RBCs # 0 K/uL Sodium 146 H (136-145) mmol/L Potassium 5.3 H (3.5-5.1) mmol/L Chloride 113 H (98-107) mmol/L Carbon Dioxide 17.4 L (21.0-32.0) mmol/L BUN 63 H (7.0-18.0) mg/dL Creatinine 2.1 H (0.6-1.0) mg/dL Est Cr Clr Drug Dosing 16.98 mL/min Estimated GFR (MDRD) 22.3 ml/min Glucose 177 H (74-106) mg/dL POC Glucose 168 H (70-99) mg/dL Calcium 8.3 L (8.5-10.1) mg/dL Total Bilirubin 0.9 (0.2-1.0) mg/dL AST 22 (15-37) IU/L ALT 42 (14-63) IU/L Alkaline Phosphatase 52 (46-116) U/L Total Protein 6.7 (6.4-8.2) g/dL Albumin 2.6 L (3.4-5.0) g/dL Globulin 4.1 H (2.6-4.0) g/dL Albumin/Globulin Ratio 0.6 L (0.9-1.6) Result Diagrams: 04/09/21 05:08 04/09/21 05:08 Paul Results Last 24 hrs: Microbiology 04/07/21 20:54 Aerobic Blood Culture - Preliminary Blood NO GROWTH AFTER 1 DAY Anaerobic Blood Culture - Preliminary NO GROWTH AFTER 1 DAY 04/07/21 20:48 Aerobic Blood Culture - Preliminary Blood NO GROWTH AFTER 1 DAY Anaerobic Blood Culture - Final Sepsis Event Note - Evaluation Sepsis Screening Result: No Definite Risk - Focused Exam Vital Signs: Vital Signs Temp Pulse Pulse Resp BP BP Pulse Ox 04/09/21 11:00 97 F 88 20 129/69 92 L 04/09/21 08:08 87 154/73 H 04/09/21 07:46 97.4 F 87 21 H 154/73 H 91 L 04/09/21 03:00 97.6 F 89 24 H 173/93 H 88 L - Problem List & Annotations (1) Weakness SNOMED Code(s): 73234303 Code(s): R53.1 - WEAKNESS Status: Acute Current Visit: Yes (2) HTN (hypertension) SNOMED Code(s): 66891690 Code(s): I10 - ESSENTIAL (PRIMARY) HYPERTENSION Status: Acute Current Visit: Yes (3) Hyperlipidemia SNOMED Code(s): 36449688 Code(s): E78.5 - HYPERLIPIDEMIA, UNSPECIFIED Status: Acute Current Visit: Yes (4) Acute renal failure SNOMED Code(s): 84646522 Code(s): N17.9 - ACUTE KIDNEY FAILURE, UNSPECIFIED Status: Acute Current Visit: No (5) Acute respiratory failure due to COVID-19 SNOMED Code(s): 208303059 Code(s): U07.1 - COVID-19; J96.00 - ACUTE RESPIRATORY FAILURE, UNSP W HYPOXIA OR HYPERCAPNIA Status: Acute Current Visit: No (6) Electrolyte abnormality SNOMED Code(s): 882676192 Code(s): E87.8 - OTH DISORDERS OF ELECTROLYTE AND FLUID BALANCE, NEC Status: Acute Current Visit: Yes - Problem List Review Problem List Initiated/Reviewed/Updated: Yes - My Orders Last 24 Hours: My Active Orders 04/08/21 11:30 Insulin Aspart [NovoLOG] See Protocol SUBCUT QIDACANDBED 04/08/21 13:23 Admission Status [Patient Status] [ADT] Routine 04/08/21 13:28 Code Status [Resuscitation Status] Routine 04/08/21 13:31 RT Aerosol Therapy [RC] ASDIRECTED 04/08/21 13:32 OT Evaluation and Treatment [CONS] Routine PT Evaluation and Treatment [CONS] Routine 04/08/21 14:00 Albuterol/Ipratropium [DuoNeb 3.0-0.5 MG/3 ML] 3 ml NEB Q4HRRT 04/08/21 15:30 Metoprolol Succinate [Toprol XL] 50 mg PO DAILY amLODIPine [Norvasc] 5 mg PO DAILY 04/08/21 21:00 Losartan [Cozaar] 50 mg PO BEDTIME atorvaSTATin [Lipitor] 20 mg PO BEDTIME 04/09/21 09:45 Sodium Chloride 0.45% 1,000 ml IV ASDIRECTED 04/09/21 14:00 Remdesivir 100 mg Sodium Chloride 0.9% [Normal Saline AdvBag] 100 ml IV Q24H 04/10/21 05:11 CBC WITH AUTO DIFF [HEME] AM CMP [COMPREHENSIVE METABOLIC PN,CMP] [CHEM] AM - Plan Plan:: 1. Generalized weakness secondary to COVID-19 -Continue remdesivir, dexamethasone -Supply oxygen as needed, currently 88% on 2 L -Duo nebulizers are on board -PT/OT daily to build strength -CBC in a.m. 2. Hyperglycemia -ADA diabetic diet is in place -Insulin sliding scale/NovoLog 3. STEFANI -Half-normal saline bolus has been initiated, continue to monitor labs with daily CMP and treat accordingly 4. Electrolyte imbalance-hypernatremia, hyperkalemia, hyperchloremia -We have initiated half normal saline 500 mL bolus, 125 mL/h and will continue to monitor 5. Past medical history of hypertension and hyperlipidemia -Continue home amlodipine, atorvastatin, losartan, metoprolol
[2021-04-09] MEDS: REMDESIVIR 100 MG in Sodium Chloride 0.9% 100 ML IV SCH (13:30)
[2021-04-09] MEDS: Losartan 50 MG Tab PO SCH (20:58)
[2021-04-09] MEDS: atorvaSTATin 20 MG Tab PO SCH (20:58)
[2021-04-10] MEDS: Albuterol/Ipratropium 3.0-0.5 MG/3 ML Neb Soln NEB SCH ×6 (01:40→21:45)
[2021-04-10 06:47] LABS: CARBON DIOXIDE,CO2 17.9 mmol/L (21.0-32.0); POTASSIUM,K 4.9 mmol/L (3.5-5.1)
[2021-04-10] MEDS: Insulin Aspart 100 Units/ML 3 ML Pen SUBCUT SCH ×4 (08:48→21:44)
[2021-04-10] MEDS: Metoprolol Succinate 50 MG Tab.ER PO SCH (08:50)
[2021-04-10] MEDS: Pantoprazole 40 MG Tab.CR PO SCH (08:53)
[2021-04-10] MEDS: Dexamethasone 4 MG Tab PO SCH (08:53)
[2021-04-10] MEDS: amLODIPine 5 MG Tab PO SCH (08:53)
[2021-04-10] MEDS: Enoxaparin 30 MG/0.3 ML Syringe SUBCUT SCH (08:54)
--- NOTE | 2021-04-10 11:52 | PCM.PN ---
- General Info Date of Service: 04/10/21 Subjective Update: The patient is a 85-year-old female, on day 3 of service, who has a significant past medical history of hypertension, hyperlipidemia, and recent COVID-19 infection, was admitted to the medical floor due to generalized weakness secondary to COVID-19 pneumonia. Physical therapy was unable to work with this patient yesterday due to patient refusal. Upon interview with the patient today, it was explained to her that she has weakness secondary to her COVID-19 a nd that it is absolutely essential that she works with physical therapy in order to build up her strength and to be independent in regards to her activities of daily living. She agreed to work with physical therapy today and was adamant about participation. She is eating and drinking her meals although her appetite is decreased. Her shortness of breath continues to worsen, she had to be transitioned up to 4 L of oxygen and is saturating 92%. She continues to cough which is nonproductive. She has no other health concerns at this time. - Review of Systems General: Reports: Weakness, Fatigue. Denies: Fever HEENT: Denies: Headaches Pulmonary: Reports: Shortness of Breath, Cough Cardiovascular: Denies: Chest Pain, Palpitations Gastrointestinal: Denies: Abdominal Pain, Nausea, Vomiting Genitourinary: Denies: Dysuria - Patient Data Vitals - Most Recent: Last Vital Signs Temp 96.9 F 04/10/21 11:28 Pulse 99 04/10/21 11:28 Resp 20 04/10/21 11:28 BP 124/61 04/10/21 11:28 Pulse Ox 87 L 04/10/21 11:28 Weight - Most Recent: 191 lb 1.617 oz I&O - Last 24 Hours: Intake & Output 04/09/21 04/10/21 04/10/21 22:59 06:59 14:59 Intake Total 200 350 Output Total 300 300 Balance -100 50 Lab Results Last 24 Hours: Laboratory Results - last 24 hr 04/09/21 04/09/21 04/09/21 Range/Units 12:55 17:50 20:50 WBC (4.0-11.0) K/uL RBC (4.30-5.90) M/uL Hgb (12.0-16.0) g/dL Hct (36.0-46.0) % MCV (80.0-98.0) fL MCH (27.0-32.0) pg MCHC (31.0-37.0) g/dL RDW Std Deviation (28.0-62.0) fl RDW Coeff of Win (11.0-15.0) % Plt Count (150-400) K/uL MPV (7.40-12.00) fL Neut % (Auto) (48.0-80.0) % Lymph % (Auto) (16.0-40.0) % [place] % (Auto) (0.0-15.0) % Eos % (Auto) (0.0-7.0) % Baso % (Auto) (0.0-1.5) % Neut # (Auto) (1.4-5.7) K/uL Lymph # (Auto) (0.6-2.4) K/uL [place] # (Auto) (0.0-0.8) K/uL Eos # (Auto) (0.0-0.7) K/uL Baso # (Auto) (0.0-0.1) K/uL Nucleated RBC % /100WBC Nucleated RBCs # K/uL Sodium (136-145) mmol/L Potassium (3.5-5.1) mmol/L Chloride (98-107) mmol/L Carbon Dioxide (21.0-32.0) mmol/L BUN (7.0-18.0) mg/dL Creatinine (0.6-1.0) mg/dL Est Cr Clr Drug Dosing mL/min Estimated GFR (MDRD) ml/min Glucose (74-106) mg/dL POC Glucose 183 H 233 H 214 H (70-99) mg/dL Calcium (8.5-10.1) mg/dL Total Bilirubin (0.2-1.0) mg/dL AST (15-37) IU/L ALT (14-63) IU/L Alkaline Phosphatase (46-116) U/L Total Protein (6.4-8.2) g/dL Albumin (3.4-5.0) g/dL Globulin (2.6-4.0) g/dL Albumin/Globulin Ratio (0.9-1.6) 04/10/21 04/10/21 04/10/21 Range/Units 05:12 05:12 05:47 WBC 9.08 (4.0-11.0) K/uL RBC 4.94 (4.30-5.90) M/uL Hgb 13.9 (12.0-16.0) g/dL Hct 43.8 (36.0-46.0) % MCV 88.7 (80.0-98.0) fL MCH 28.1 (27.0-32.0) pg MCHC 31.7 (31.0-37.0) g/dL RDW Std Deviation 53.7 (28.0-62.0) fl RDW Coeff of Win 16 H (11.0-15.0) % Plt Count 152 (150-400) K/uL MPV 10.60 (7.40-12.00) fL Neut % (Auto) 91.1 H (48.0-80.0) % Lymph % (Auto) 2.2 L (16.0-40.0) % [place] % (Auto) 6.6 (0.0-15.0) % Eos % (Auto) 0.0 (0.0-7.0) % Baso % (Auto) 0.1 (0.0-1.5) % Neut # (Auto) 8.3 H (1.4-5.7) K/uL Lymph # (Auto) 0.2 L (0.6-2.4) K/uL [place] # (Auto) 0.6 (0.0-0.8) K/uL Eos # (Auto) 0.0 (0.0-0.7) K/uL Baso # (Auto) 0.0 (0.0-0.1) K/uL Nucleated RBC % 0.2 /100WBC Nucleated RBCs # 0 K/uL Sodium 147 H (136-145) mmol/L Potassium 4.9 (3.5-5.1) mmol/L Chloride 115 H (98-107) mmol/L Carbon Dioxide 17.9 L (21.0-32.0) mmol/L BUN 66 H (7.0-18.0) mg/dL Creatinine 2.5 H (0.6-1.0) mg/dL Est Cr Clr Drug Dosing 14.27 mL/min Estimated GFR (MDRD) 18.2 ml/min Glucose 175 H (74-106) mg/dL POC Glucose 149 H (70-99) mg/dL Calcium 8.3 L (8.5-10.1) mg/dL Total Bilirubin 1.0 (0.2-1.0) mg/dL AST 27 (15-37) IU/L ALT 41 (14-63) IU/L Alkaline Phosphatase 50 (46-116) U/L Total Protein 6.5 (6.4-8.2) g/dL Albumin 2.6 L (3.4-5.0) g/dL Globulin 3.9 (2.6-4.0) g/dL Albumin/Globulin Ratio 0.7 L (0.9-1.6) Paul Results Last 24 Hours: Microbiology 04/07/21 20:54 Aerobic Blood Culture - Preliminary Blood NO GROWTH AFTER 2 DAYS Anaerobic Blood Culture - Preliminary NO GROWTH AFTER 2 DAYS 04/07/21 20:48 Aerobic Blood Culture - Preliminary Blood NO GROWTH AFTER 2 DAYS Anaerobic Blood Culture - Final Med Orders - Current: Current Medications Albuterol/Ipratropium (Albuterol/Ipratropium 3.0-0.5 Mg/3 Ml Neb Soln) 3 ml NEB Q4HRRT [facility] Last Admin: 04/10/21 11:21 Dose: 3 ml Documented by: Amlodipine Besylate (Amlodipine 5 Mg Tab) 5 mg PO DAILY [facility] Last Admin: 04/10/21 08:53 Dose: 5 mg Documented by: Atorvastatin Calcium (Atorvastatin 20 Mg Tab) 20 mg PO BEDTIME [facility] Last Admin: 04/09/21 20:58 Dose: 20 mg Documented by: Dexamethasone (Dexamethasone 4 Mg Tab) 6 mg PO DAILY [facility] Last Admin: 04/10/21 08:53 Dose: 6 mg Documented by: Dextrose/Water (50% Dextrose In Water 50 Ml Syringe) 50 ml IVPUSH ASDIRECTED PRN PRN Reason: Hypoglycemia Enoxaparin Sodium (Enoxaparin 30 Mg/0.3 Ml Syringe) 30 mg SUBCUT Q24H [facility] Last Admin: 04/10/21 08:54 Dose: 30 mg Documented by: Glucagon (Glucagon,Human Recombinant 1 Mg Vial) 1 mg IM ASDIRECTED PRN PRN Reason: Hypoglycemia Remdesivir 100 mg/ Sodium (Chloride) 100 mls @ 100 mls/hr IV Q24H [facility] Stop: 04/12/21 14:59 Last Admin: 04/09/21 13:30 Dose: 100 mls/hr Documented by: Sodium Chloride (Sodium Chloride 0.45%) 1,000 mls @ 125 mls/hr IV ASDIRECTED [facility] Last Infusion: 04/09/21 13:57 Dose: 0 mls/hr Documented by: Insulin Aspart (Insulin Aspart 100 Units/Ml 3 Ml Pen) 0 unit SUBCUT QIDACANDBED [facility]; Protocol Last Admin: 04/10/21 08:48 Dose: Not Given Documented by: Losartan Potassium (Losartan 50 Mg Tab) 50 mg PO BEDTIME [facility] Last Admin: 04/09/21 20:58 Dose: 50 mg Documented by: Metoprolol Succinate (Metoprolol Succinate 50 Mg Tab.Er) 50 mg PO DAILY [facility] Last Admin: 04/10/21 08:50 Dose: 50 mg Documented by: Pantoprazole Sodium (Pantoprazole 40 Mg Tab.Cr) 40 mg PO DAILY [facility] Last Admin: 04/10/21 08:53 Dose: 40 mg Documented by: Discontinued Medications Remdesivir 200 mg/ Sodium (Chloride) 250 mls @ 250 mls/hr IV ONETIME ONE Stop: 04/08/21 15:14 Last Admin: 04/08/21 14:51 Dose: 250 mls/hr Documented by: - Exam General: Cooperative, Mild Distress, Lethargic HEENT: No: Mucous Membr. Moist/[place] Neck: Trachea Midline Lungs: Rhonchi Cardiovascular: Regular Rate, Regular Rhythm GI/Abdominal Exam: Normal Bowel Sounds, Soft, Non-Tender - Patient Data Lab Results Last 24 hrs: Laboratory Results - last 24 hr 04/09/21 04/09/21 04/09/21 Range/Units 12:55 17:50 20:50 WBC (4.0-11.0) K/uL RBC (4.30-5.90) M/uL Hgb (12.0-16.0) g/dL Hct (36.0-46.0) % MCV (80.0-98.0) fL MCH (27.0-32.0) pg MCHC (31.0-37.0) g/dL RDW Std Deviation (28.0-62.0) fl RDW Coeff of Win (11.0-15.0) % Plt Count (150-400) K/uL MPV (7.40-12.00) fL Neut % (Auto) (48.0-80.0) % Lymph % (Auto) (16.0-40.0) % [place] % (Auto) (0.0-15.0) % Eos % (Auto) (0.0-7.0) % Baso % (Auto) (0.0-1.5) % Neut # (Auto) (1.4-5.7) K/uL Lymph # (Auto) (0.6-2.4) K/uL [place] # (Auto) (0.0-0.8) K/uL Eos # (Auto) (0.0-0.7) K/uL Baso # (Auto) (0.0-0.1) K/uL Nucleated RBC % /100WBC Nucleated RBCs # K/uL Sodium (136-145) mmol/L Potassium (3.5-5.1) mmol/L Chloride (98-107) mmol/L Carbon Dioxide (21.0-32.0) mmol/L BUN (7.0-18.0) mg/dL Creatinine (0.6-1.0) mg/dL Est Cr Clr Drug Dosing mL/min Estimated GFR (MDRD) ml/min Glucose (74-106) mg/dL POC Glucose 183 H 233 H 214 H (70-99) mg/dL Calcium (8.5-10.1) mg/dL Total Bilirubin (0.2-1.0) mg/dL AST (15-37) IU/L ALT (14-63) IU/L Alkaline Phosphatase (46-116) U/L Total Protein (6.4-8.2) g/dL Albumin (3.4-5.0) g/dL Globulin (2.6-4.0) g/dL Albumin/Globulin Ratio (0.9-1.6) 04/10/21 04/10/21 04/10/21 Range/Units 05:12 05:12 05:47 WBC 9.08 (4.0-11.0) K/uL RBC 4.94 (4.30-5.90) M/uL Hgb 13.9 (12.0-16.0) g/dL Hct 43.8 (36.0-46.0) % MCV 88.7 (80.0-98.0) fL MCH 28.1 (27.0-32.0) pg MCHC 31.7 (31.0-37.0) g/dL RDW Std Deviation 53.7 (28.0-62.0) fl RDW Coeff of Win 16 H (11.0-15.0) % Plt Count 152 (150-400) K/uL MPV 10.60 (7.40-12.00) fL Neut % (Auto) 91.1 H (48.0-80.0) % Lymph % (Auto) 2.2 L (16.0-40.0) % [place] % (Auto) 6.6 (0.0-15.0) % Eos % (Auto) 0.0 (0.0-7.0) % Baso % (Auto) 0.1 (0.0-1.5) % Neut # (Auto) 8.3 H (1.4-5.7) K/uL Lymph # (Auto) 0.2 L (0.6-2.4) K/uL [place] # (Auto) 0.6 (0.0-0.8) K/uL Eos # (Auto) 0.0 (0.0-0.7) K/uL Baso # (Auto) 0.0 (0.0-0.1) K/uL Nucleated RBC % 0.2 /100WBC Nucleated RBCs # 0 K/uL Sodium 147 H (136-145) mmol/L Potassium 4.9 (3.5-5.1) mmol/L Chloride 115 H (98-107) mmol/L Carbon Dioxide 17.9 L (21.0-32.0) mmol/L BUN 66 H (7.0-18.0) mg/dL Creatinine 2.5 H (0.6-1.0) mg/dL Est Cr Clr Drug Dosing 14.27 mL/min Estimated GFR (MDRD) 18.2 ml/min Glucose 175 H (74-106) mg/dL POC Glucose 149 H (70-99) mg/dL Calcium 8.3 L (8.5-10.1) mg/dL Total Bilirubin 1.0 (0.2-1.0) mg/dL AST 27 (15-37) IU/L ALT 41 (14-63) IU/L Alkaline Phosphatase 50 (46-116) U/L Total Protein 6.5 (6.4-8.2) g/dL Albumin 2.6 L (3.4-5.0) g/dL Globulin 3.9 (2.6-4.0) g/dL Albumin/Globulin Ratio 0.7 L (0.9-1.6) Result Diagrams: 04/10/21 05:12 04/10/21 05:12 Paul Results Last 24 hrs: Microbiology 04/07/21 20:54 Aerobic Blood Culture - Preliminary Blood NO GROWTH AFTER 2 DAYS Anaerobic Blood Culture - Preliminary NO GROWTH AFTER 2 DAYS 04/07/21 20:48 Aerobic Blood Culture - Preliminary Blood NO GROWTH AFTER 2 DAYS Anaerobic Blood Culture - Final Sepsis Event Note - Evaluation Sepsis Screening Result: Possible Sepsis Risk - Focused Exam Vital Signs: Vital Signs Temp Pulse Pulse Resp BP BP BP 04/10/21 11:28 96.9 F 99 20 124/61 04/10/21 08:53 123/60 04/10/21 08:50 102 H 123/60 04/10/21 08:00 04/10/21 07:30 97 F 103 H 20 151/68 H 04/10/21 04:00 96.2 F L 91 18 162/56 H 04/10/21 00:00 97.0 F 92 16 144/62 H Pulse Ox 04/10/21 11:28 87 L 04/10/21 08:53 04/10/21 08:50 04/10/21 08:00 92 L 04/10/21 07:30 88 L 04/10/21 04:00 92 L 04/10/21 00:00 93 L - Problem List & Annotations (1) Weakness SNOMED Code(s): 21741308 Code(s): R53.1 - WEAKNESS Status: Acute Current Visit: Yes (2) HTN (hypertension) SNOMED Code(s): 78637849 Code(s): I10 - ESSENTIAL (PRIMARY) HYPERTENSION Status: Acute Current Visit: Yes (3) Hyperlipidemia SNOMED Code(s): 26920307 Code(s): E78.5 - HYPERLIPIDEMIA, UNSPECIFIED Status: Acute Current Visit: Yes (4) Acute renal failure SNOMED Code(s): 97741573 Code(s): N17.9 - ACUTE KIDNEY FAILURE, UNSPECIFIED Status: Acute Current Visit: No (5) Acute respiratory failure due to COVID-19 SNOMED Code(s): 592469849 Code(s): U07.1 - COVID-19; J96.00 - ACUTE RESPIRATORY FAILURE, UNSP W HYPOXIA OR HYPERCAPNIA Status: Acute Current Visit: No (6) Electrolyte abnormality SNOMED Code(s): 904428784 Code(s): E87.8 - OTH DISORDERS OF ELECTROLYTE AND FLUID BALANCE, NEC Status: Acute Current Visit: Yes - Problem List Review Problem List Initiated/Reviewed/Updated: Yes - My Orders Last 24 Hours: My Active Orders 04/09/21 14:00 Remdesivir 100 mg Sodium Chloride 0.9% [Normal Saline AdvBag] 100 ml IV Q24H - Plan Plan:: 1. Generalized weakness secondary to COVID-19 -Continue remdesivir, dexamethasone, and supply oxygen as needed, currently 92% on 4 L -Duo nebulizers are on board -PT/OT daily -CBC/CMP 2. Hyperglycemia -ADA diabetic diet is in place and Insulin sliding scale/NovoLog 3. STEFANI/hypernatremia/hyperchloremia Continue to monitor however do not want to provide additional fluids to the patient in fear of fluid overload 4. Past medical history of hypertension and hyperlipidemia -Continue home amlodipine, atorvastatin, losartan, metoprolol
[2021-04-10] MEDS: REMDESIVIR 100 MG in Sodium Chloride 0.9% 100 ML IV SCH (14:51)
--- NOTE | 2021-04-10 17:40 | PCM.SN.2 ---
- Free Text/Narrative Note: Patient is having worsening shortness of breath and tachypnea, requiring heated high flow at max settings. We will transfer to ICU. I discussed FDA EUA of barcitinib and patient's daughter has consented to its use. I reconfirm the patient is a DNR/DNI
--- NOTE | 2021-04-10 18:50 | CR ---
Indication: Hypoxia. Technique: AP portable view of the chest. Comparison: April 07, 2021. Findings: The heart is enlarged. Bibasilar atelectasis and/or infiltrates are identified, greater on the left than the right. Small left pleural effusion is identified. No pneumothorax is seen. Impression: Cardiomegaly. Left basilar atelectasis and/or infiltrate. Dictated by Mabel Moran MD @ 04/10/2021 6:48:41 PM (Electronically Signed)
[2021-04-10] MEDS: Losartan 50 MG Tab PO SCH (20:31)
[2021-04-10] MEDS: atorvaSTATin 20 MG Tab PO SCH (20:32)
[2021-04-11] MEDS: Albuterol/Ipratropium 3.0-0.5 MG/3 ML Neb Soln NEB SCH ×6 (01:49→21:36)
[2021-04-11 06:13] LABS: CARBON DIOXIDE,CO2 17.1 mmol/L (21.0-32.0); POTASSIUM,K 5.2 mmol/L (3.5-5.1)
[2021-04-11] MEDS: Metoprolol Succinate 50 MG Tab.ER PO SCH (09:04)
[2021-04-11] MEDS: Insulin Aspart 100 Units/ML 3 ML Pen SUBCUT SCH ×4 (09:04→21:35)
[2021-04-11] MEDS: Enoxaparin 30 MG/0.3 ML Syringe SUBCUT SCH (09:04)
[2021-04-11] MEDS: amLODIPine 5 MG Tab PO SCH (09:08)
[2021-04-11] MEDS: Pantoprazole 40 MG Tab.CR PO SCH (09:08)
[2021-04-11] MEDS: Dexamethasone 4 MG Tab PO SCH (09:09)
[2021-04-11] MEDS ORDERED: Dextrose 5% in Water 500 ML IV SCH (10:15)
--- NOTE | 2021-04-11 14:00 | PCM.PN ---
- General Info Date of Service: 04/11/21 - Review of Systems Systems Review Comment:: no complaints - Patient Data Vitals - Most Recent: Last Vital Signs Temp 36.5 C 04/11/21 04:00 Pulse 86 04/11/21 09:04 Resp 18 04/11/21 06:00 BP 153/82 H 04/11/21 09:08 Pulse Ox 92 L 04/11/21 06:00 Weight - Most Recent: 85.956 kg I&O - Last 24 Hours: Intake & Output 04/10/21 04/11/21 04/11/21 22:59 06:59 14:59 Intake Total 500 350 Output Total 350 Balance 150 350 Lab Results Last 24 Hours: Laboratory Results - last 24 hr 04/10/21 04/10/21 04/10/21 Range/Units 16:55 18:35 21:33 WBC (4.0-11.0) K/uL RBC (4.30-5.90) M/uL Hgb (12.0-16.0) g/dL Hct (36.0-46.0) % MCV (80.0-98.0) fL MCH (27.0-32.0) pg MCHC (31.0-37.0) g/dL RDW Std Deviation (28.0-62.0) fl RDW Coeff of Win (11.0-15.0) % Plt Count (150-400) K/uL MPV (7.40-12.00) fL Neut % (Auto) (48.0-80.0) % Lymph % (Auto) (16.0-40.0) % [place] % (Auto) (0.0-15.0) % Eos % (Auto) (0.0-7.0) % Baso % (Auto) (0.0-1.5) % Neut # (Auto) (1.4-5.7) K/uL Lymph # (Auto) (0.6-2.4) K/uL [place] # (Auto) (0.0-0.8) K/uL Eos # (Auto) (0.0-0.7) K/uL Baso # (Auto) (0.0-0.1) K/uL Nucleated RBC % /100WBC Nucleated RBCs # K/uL Sodium (136-145) mmol/L Potassium (3.5-5.1) mmol/L Chloride (98-107) mmol/L Carbon Dioxide (21.0-32.0) mmol/L BUN (7.0-18.0) mg/dL Creatinine (0.6-1.0) mg/dL Est Cr Clr Drug Dosing mL/min Estimated GFR (MDRD) ml/min Glucose (74-106) mg/dL POC Glucose 201 H 158 H (70-99) mg/dL Calcium (8.5-10.1) mg/dL Total Bilirubin (0.2-1.0) mg/dL AST (15-37) IU/L ALT (14-63) IU/L Alkaline Phosphatase (46-116) U/L C-Reactive Protein 5.30 H (0.00-0.90) mg/dL Total Protein (6.4-8.2) g/dL Albumin (3.4-5.0) g/dL Globulin (2.6-4.0) g/dL Albumin/Globulin Ratio (0.9-1.6) 04/11/21 04/11/21 04/11/21 Range/Units 05:25 05:25 08:49 WBC 7.25 (4.0-11.0) K/uL RBC 4.80 (4.30-5.90) M/uL Hgb 13.8 (12.0-16.0) g/dL Hct 43.1 (36.0-46.0) % MCV 89.8 (80.0-98.0) fL MCH 28.8 (27.0-32.0) pg MCHC 32.0 (31.0-37.0) g/dL RDW Std Deviation 54.4 (28.0-62.0) fl RDW Coeff of Win 17 H (11.0-15.0) % Plt Count 154 (150-400) K/uL MPV 11.00 (7.40-12.00) fL Neut % (Auto) 91.0 H (48.0-80.0) % Lymph % (Auto) 4.6 L (16.0-40.0) % [place] % (Auto) 4.3 (0.0-15.0) % Eos % (Auto) 0.0 (0.0-7.0) % Baso % (Auto) 0.1 (0.0-1.5) % Neut # (Auto) 6.6 H (1.4-5.7) K/uL Lymph # (Auto) 0.3 L (0.6-2.4) K/uL [place] # (Auto) 0.3 (0.0-0.8) K/uL Eos # (Auto) 0.0 (0.0-0.7) K/uL Baso # (Auto) 0.0 (0.0-0.1) K/uL Nucleated RBC % 0.0 /100WBC Nucleated RBCs # 0 K/uL Sodium 150 H (136-145) mmol/L Potassium 5.2 H (3.5-5.1) mmol/L Chloride 118 H (98-107) mmol/L Carbon Dioxide 17.1 L (21.0-32.0) mmol/L BUN 78 H (7.0-18.0) mg/dL Creatinine 2.6 H (0.6-1.0) mg/dL Est Cr Clr Drug Dosing 13.72 mL/min Estimated GFR (MDRD) 17.4 ml/min Glucose 169 H (74-106) mg/dL POC Glucose 138 H (70-99) mg/dL Calcium 8.2 L (8.5-10.1) mg/dL Total Bilirubin 1.2 H (0.2-1.0) mg/dL AST 38 H (15-37) IU/L ALT 46 (14-63) IU/L Alkaline Phosphatase 54 (46-116) U/L C-Reactive Protein (0.00-0.90) mg/dL Total Protein 6.2 L (6.4-8.2) g/dL Albumin 2.6 L (3.4-5.0) g/dL Globulin 3.6 (2.6-4.0) g/dL Albumin/Globulin Ratio 0.7 L (0.9-1.6) 04/11/21 Range/Units 12:31 WBC (4.0-11.0) K/uL RBC (4.30-5.90) M/uL Hgb (12.0-16.0) g/dL Hct (36.0-46.0) % MCV (80.0-98.0) fL MCH (27.0-32.0) pg MCHC (31.0-37.0) g/dL RDW Std Deviation (28.0-62.0) fl RDW Coeff of Win (11.0-15.0) % Plt Count (150-400) K/uL MPV (7.40-12.00) fL Neut % (Auto) (48.0-80.0) % Lymph % (Auto) (16.0-40.0) % [place] % (Auto) (0.0-15.0) % Eos % (Auto) (0.0-7.0) % Baso % (Auto) (0.0-1.5) % Neut # (Auto) (1.4-5.7) K/uL Lymph # (Auto) (0.6-2.4) K/uL [place] # (Auto) (0.0-0.8) K/uL Eos # (Auto) (0.0-0.7) K/uL Baso # (Auto) (0.0-0.1) K/uL Nucleated RBC % /100WBC Nucleated RBCs # K/uL Sodium (136-145) mmol/L Potassium (3.5-5.1) mmol/L Chloride (98-107) mmol/L Carbon Dioxide (21.0-32.0) mmol/L BUN (7.0-18.0) mg/dL Creatinine (0.6-1.0) mg/dL Est Cr Clr Drug Dosing mL/min Estimated GFR (MDRD) ml/min Glucose (74-106) mg/dL POC Glucose 133 H (70-99) mg/dL Calcium (8.5-10.1) mg/dL Total Bilirubin (0.2-1.0) mg/dL AST (15-37) IU/L ALT (14-63) IU/L Alkaline Phosphatase (46-116) U/L C-Reactive Protein (0.00-0.90) mg/dL Total Protein (6.4-8.2) g/dL Albumin (3.4-5.0) g/dL Globulin (2.6-4.0) g/dL Albumin/Globulin Ratio (0.9-1.6) Paul Results Last 24 Hours: Microbiology 04/07/21 20:54 Aerobic Blood Culture - Preliminary Blood NO GROWTH AFTER 3 DAYS Anaerobic Blood Culture - Preliminary NO GROWTH AFTER 3 DAYS 04/07/21 20:48 Aerobic Blood Culture - Preliminary Blood NO GROWTH AFTER 3 DAYS Anaerobic Blood Culture - Final Med Orders - Current: Current Medications Albuterol/Ipratropium (Albuterol/Ipratropium 3.0-0.5 Mg/3 Ml Neb Soln) 3 ml NEB Q4HRRT [facility] Last Admin: 04/11/21 09:09 Dose: 3 ml Documented by: Amlodipine Besylate (Amlodipine 5 Mg Tab) 5 mg PO DAILY [facility] Last Admin: 04/11/21 09:08 Dose: 5 mg Documented by: Atorvastatin Calcium (Atorvastatin 20 Mg Tab) 20 mg PO BEDTIME [facility] Last Admin: 04/10/21 20:32 Dose: 20 mg Documented by: Baricitinib (Baricitinib 2 Mg Tab) 1 mg PO Q24H [facility] Last Admin: 04/10/21 18:36 Dose: 1 mg Documented by: Dexamethasone (Dexamethasone 4 Mg Tab) 6 mg PO DAILY [facility] Last Admin: 04/11/21 09:09 Dose: 6 mg Documented by: Dextrose/Water (50% Dextrose In Water 50 Ml Syringe) 50 ml IVPUSH ASDIRECTED PRN PRN Reason: Hypoglycemia Enoxaparin Sodium (Enoxaparin 30 Mg/0.3 Ml Syringe) 30 mg SUBCUT Q24H [facility] Last Admin: 04/11/21 09:04 Dose: 30 mg Documented by: Glucagon (Glucagon,Human Recombinant 1 Mg Vial) 1 mg IM ASDIRECTED PRN PRN Reason: Hypoglycemia Remdesivir 100 mg/ Sodium (Chloride) 100 mls @ 100 mls/hr IV Q24H [facility] Stop: 04/12/21 14:59 Last Admin: 04/10/21 14:51 Dose: 100 mls/hr Documented by: Dextrose/Water (Dextrose 5% In Water) 500 mls @ 50 mls/hr IV ASDIRECTED [facility] Stop: 04/11/21 20:14 Insulin Aspart (Insulin Aspart 100 Units/Ml 3 Ml Pen) 0 unit SUBCUT QIDACANDBED [facility]; Protocol Last Admin: 04/11/21 12:46 Dose: Not Given Documented by: Losartan Potassium (Losartan 50 Mg Tab) 50 mg PO BEDTIME [facility] Last Admin: 04/10/21 20:31 Dose: 50 mg Documented by: Metoprolol Succinate (Metoprolol Succinate 50 Mg Tab.Er) 50 mg PO DAILY [facility] Last Admin: 04/11/21 09:04 Dose: 50 mg Documented by: Pantoprazole Sodium (Pantoprazole 40 Mg Tab.Cr) 40 mg PO DAILY [facility] Last Admin: 04/11/21 09:08 Dose: 40 mg Documented by: Discontinued Medications Remdesivir 200 mg/ Sodium (Chloride) 250 mls @ 250 mls/hr IV ONETIME ONE Stop: 04/08/21 15:14 Last Admin: 04/08/21 14:51 Dose: 250 mls/hr Documented by: Sodium Chloride (Sodium Chloride 0.45%) 1,000 mls @ 125 mls/hr IV ASDIRECTED [facility] Last Infusion: 04/09/21 13:57 Dose: 0 mls/hr Documented by: - Exam General: Cooperative, No Acute Distress Neck: Supple Lungs: Normal Respiratory Effort, Rhonchi Cardiovascular: Regular Rate, Regular Rhythm GI/Abdominal Exam: Soft, Non-Tender Extremities: Non-Tender, No Pedal Edema Skin: Warm, Dry, Intact Neurological: No New Focal Deficit - Patient Data Lab Results Last 24 hrs: Laboratory Results - last 24 hr 04/10/21 04/10/21 04/10/21 Range/Units 16:55 18:35 21:33 WBC (4.0-11.0) K/uL RBC (4.30-5.90) M/uL Hgb (12.0-16.0) g/dL Hct (36.0-46.0) % MCV (80.0-98.0) fL MCH (27.0-32.0) pg MCHC (31.0-37.0) g/dL RDW Std Deviation (28.0-62.0) fl RDW Coeff of Win (11.0-15.0) % Plt Count (150-400) K/uL MPV (7.40-12.00) fL Neut % (Auto) (48.0-80.0) % Lymph % (Auto) (16.0-40.0) % [place] % (Auto) (0.0-15.0) % Eos % (Auto) (0.0-7.0) % Baso % (Auto) (0.0-1.5) % Neut # (Auto) (1.4-5.7) K/uL Lymph # (Auto) (0.6-2.4) K/uL [place] # (Auto) (0.0-0.8) K/uL Eos # (Auto) (0.0-0.7) K/uL Baso # (Auto) (0.0-0.1) K/uL Nucleated RBC % /100WBC Nucleated RBCs # K/uL Sodium (136-145) mmol/L Potassium (3.5-5.1) mmol/L Chloride (98-107) mmol/L Carbon Dioxide (21.0-32.0) mmol/L BUN (7.0-18.0) mg/dL Creatinine (0.6-1.0) mg/dL Est Cr Clr Drug Dosing mL/min Estimated GFR (MDRD) ml/min Glucose (74-106) mg/dL POC Glucose 201 H 158 H (70-99) mg/dL Calcium (8.5-10.1) mg/dL Total Bilirubin (0.2-1.0) mg/dL AST (15-37) IU/L ALT (14-63) IU/L Alkaline Phosphatase (46-116) U/L C-Reactive Protein 5.30 H (0.00-0.90) mg/dL Total Protein (6.4-8.2) g/dL Albumin (3.4-5.0) g/dL Globulin (2.6-4.0) g/dL Albumin/Globulin Ratio (0.9-1.6) 04/11/21 04/11/21 04/11/21 Range/Units 05:25 05:25 08:49 WBC 7.25 (4.0-11.0) K/uL RBC 4.80 (4.30-5.90) M/uL Hgb 13.8 (12.0-16.0) g/dL Hct 43.1 (36.0-46.0) % MCV 89.8 (80.0-98.0) fL MCH 28.8 (27.0-32.0) pg MCHC 32.0 (31.0-37.0) g/dL RDW Std Deviation 54.4 (28.0-62.0) fl RDW Coeff of Win 17 H (11.0-15.0) % Plt Count 154 (150-400) K/uL MPV 11.00 (7.40-12.00) fL Neut % (Auto) 91.0 H (48.0-80.0) % Lymph % (Auto) 4.6 L (16.0-40.0) % [place] % (Auto) 4.3 (0.0-15.0) % Eos % (Auto) 0.0 (0.0-7.0) % Baso % (Auto) 0.1 (0.0-1.5) % Neut # (Auto) 6.6 H (1.4-5.7) K/uL Lymph # (Auto) 0.3 L (0.6-2.4) K/uL [place] # (Auto) 0.3 (0.0-0.8) K/uL Eos # (Auto) 0.0 (0.0-0.7) K/uL Baso # (Auto) 0.0 (0.0-0.1) K/uL Nucleated RBC % 0.0 /100WBC Nucleated RBCs # 0 K/uL Sodium 150 H (136-145) mmol/L Potassium 5.2 H (3.5-5.1) mmol/L Chloride 118 H (98-107) mmol/L Carbon Dioxide 17.1 L (21.0-32.0) mmol/L BUN 78 H (7.0-18.0) mg/dL Creatinine 2.6 H (0.6-1.0) mg/dL Est Cr Clr Drug Dosing 13.72 mL/min Estimated GFR (MDRD) 17.4 ml/min Glucose 169 H (74-106) mg/dL POC Glucose 138 H (70-99) mg/dL Calcium 8.2 L (8.5-10.1) mg/dL Total Bilirubin 1.2 H (0.2-1.0) mg/dL AST 38 H (15-37) IU/L ALT 46 (14-63) IU/L Alkaline Phosphatase 54 (46-116) U/L C-Reactive Protein (0.00-0.90) mg/dL Total Protein 6.2 L (6.4-8.2) g/dL Albumin 2.6 L (3.4-5.0) g/dL Globulin 3.6 (2.6-4.0) g/dL Albumin/Globulin Ratio 0.7 L (0.9-1.6) 04/11/21 Range/Units 12:31 WBC (4.0-11.0) K/uL RBC (4.30-5.90) M/uL Hgb (12.0-16.0) g/dL Hct (36.0-46.0) % MCV (80.0-98.0) fL MCH (27.0-32.0) pg MCHC (31.0-37.0) g/dL RDW Std Deviation (28.0-62.0) fl RDW Coeff of Win (11.0-15.0) % Plt Count (150-400) K/uL MPV (7.40-12.00) fL Neut % (Auto) (48.0-80.0) % Lymph % (Auto) (16.0-40.0) % [place] % (Auto) (0.0-15.0) % Eos % (Auto) (0.0-7.0) % Baso % (Auto) (0.0-1.5) % Neut # (Auto) (1.4-5.7) K/uL Lymph # (Auto) (0.6-2.4) K/uL [place] # (Auto) (0.0-0.8) K/uL Eos # (Auto) (0.0-0.7) K/uL Baso # (Auto) (0.0-0.1) K/uL Nucleated RBC % /100WBC Nucleated RBCs # K/uL Sodium (136-145) mmol/L Potassium (3.5-5.1) mmol/L Chloride (98-107) mmol/L Carbon Dioxide (21.0-32.0) mmol/L BUN (7.0-18.0) mg/dL Creatinine (0.6-1.0) mg/dL Est Cr Clr Drug Dosing mL/min Estimated GFR (MDRD) ml/min Glucose (74-106) mg/dL POC Glucose 133 H (70-99) mg/dL Calcium (8.5-10.1) mg/dL Total Bilirubin (0.2-1.0) mg/dL AST (15-37) IU/L ALT (14-63) IU/L Alkaline Phosphatase (46-116) U/L C-Reactive Protein (0.00-0.90) mg/dL Total Protein (6.4-8.2) g/dL Albumin (3.4-5.0) g/dL Globulin (2.6-4.0) g/dL Albumin/Globulin Ratio (0.9-1.6) Result Diagrams: 04/11/21 05:25 04/11/21 05:25 Paul Results Last 24 hrs: Microbiology 04/07/21 20:54 Aerobic Blood Culture - Preliminary Blood NO GROWTH AFTER 3 DAYS Anaerobic Blood Culture - Preliminary NO GROWTH AFTER 3 DAYS 04/07/21 20:48 Aerobic Blood Culture - Preliminary Blood NO GROWTH AFTER 3 DAYS Anaerobic Blood Culture - Final Sepsis Event Note - Evaluation Sepsis Screening Result: Possible Sepsis Risk - Focused Exam Vital Signs: Vital Signs Temp Pulse Resp BP BP Pulse Ox 04/11/21 09:08 153/82 H 04/11/21 09:04 86 153/82 H 04/11/21 06:00 18 167/77 H 92 L 04/11/21 05:00 17 114/59 L 95 04/11/21 04:00 36.5 C 20 153/62 H 94 L 04/11/21 03:00 21 H 92 L 04/11/21 02:00 21 H 112/64 90 L - Problem List & Annotations (1) Acute respiratory failure due to COVID-19 SNOMED Code(s): 508401479 Code(s): U07.1 - COVID-19; J96.00 - ACUTE RESPIRATORY FAILURE, UNSP W HYPOXIA OR HYPERCAPNIA Status: Acute Current Visit: No (2) Pneumonia due to COVID-19 virus SNOMED Code(s): 314003263558131093 Code(s): U07.1 - COVID-19; J12.82 - PNEUMONIA DUE TO CORONAVIRUS DISEASE 2019 Status: Acute Current Visit: No - Problem List Review Problem List Initiated/Reviewed/Updated: Yes - My Orders Last 24 Hours: My Active Orders 04/10/21 17:45 Baricitinib [Olumiant] 1 mg PO Q24H 04/10/21 18:35 PROCALCITONIN [REF] Routine 04/10/21 19:19 Transfer Patient (Change bed) [ADT] Routine 04/11/21 10:15 Dextrose 5% in Water 500 ml IV ASDIRECTED - Plan Plan:: 85 yo female admitted with COVID with hypoxia hypoxia: was transferred to ICU last night due increasing respiratory distress and need for HHFNC, patient's work of breathing has improved and is now on 15 L NC COVID: continue desxamethason, barcitinib, and remdesivir 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
[2021-04-11] MEDS: REMDESIVIR 100 MG in Sodium Chloride 0.9% 100 ML IV SCH (15:20)
[2021-04-11] MEDS: atorvaSTATin 20 MG Tab PO SCH (20:58)
[2021-04-11] MEDS: Losartan 50 MG Tab PO SCH (20:58)
[2021-04-12] MEDS: Albuterol/Ipratropium 3.0-0.5 MG/3 ML Neb Soln NEB SCH ×5 (02:14→17:15)
[2021-04-12 06:39] LABS: CARBON DIOXIDE,CO2 15.3 mmol/L (21.0-32.0); POTASSIUM,K 5.1 mmol/L (3.5-5.1)
[2021-04-12] MEDS: Insulin Aspart 100 Units/ML 3 ML Pen SUBCUT SCH ×4 (08:00→21:45)
[2021-04-12] MEDS: Enoxaparin 30 MG/0.3 ML Syringe SUBCUT SCH (08:52)
[2021-04-12] MEDS: Pantoprazole 40 MG Tab.CR PO SCH (08:52)
[2021-04-12] MEDS: Dexamethasone 4 MG Tab PO SCH (08:52)
[2021-04-12] MEDS: amLODIPine 5 MG Tab PO SCH (08:52)
[2021-04-12] MEDS: Metoprolol Succinate 50 MG Tab.ER PO SCH (08:55)
--- NOTE | 2021-04-12 13:55 | PCM.PN ---
- General Info Date of Service: 04/12/21 - Review of Systems Systems Review Comment:: nonverbal - Patient Data Vitals - Most Recent: Last Vital Signs Temp 36.4 C 04/12/21 12:00 Pulse 90 04/12/21 08:55 Resp 16 04/12/21 12:00 BP 141/72 H 04/12/21 12:00 Pulse Ox 92 L 04/12/21 12:00 Weight - Most Recent: 86.125 kg I&O - Last 24 Hours: Intake & Output 04/11/21 04/12/21 04/12/21 22:59 06:59 14:59 Intake Total 1300 450 Output Total 950 Balance 350 450 Lab Results Last 24 Hours: Laboratory Results - last 24 hr 04/10/21 04/11/21 04/11/21 Range/Units 18:35 19:16 21:29 WBC (4.0-11.0) K/uL RBC (4.30-5.90) M/uL Hgb (12.0-16.0) g/dL Hct (36.0-46.0) % MCV (80.0-98.0) fL MCH (27.0-32.0) pg MCHC (31.0-37.0) g/dL RDW Std Deviation (28.0-62.0) fl RDW Coeff of Win (11.0-15.0) % Plt Count (150-400) K/uL MPV (7.40-12.00) fL Neut % (Auto) (48.0-80.0) % Lymph % (Auto) (16.0-40.0) % [place] % (Auto) (0.0-15.0) % Eos % (Auto) (0.0-7.0) % Baso % (Auto) (0.0-1.5) % Neut # (Auto) (1.4-5.7) K/uL Lymph # (Auto) (0.6-2.4) K/uL [place] # (Auto) (0.0-0.8) K/uL Eos # (Auto) (0.0-0.7) K/uL Baso # (Auto) (0.0-0.1) K/uL Nucleated RBC % /100WBC Nucleated RBCs # K/uL Sodium (136-145) mmol/L Potassium (3.5-5.1) mmol/L Chloride (98-107) mmol/L Carbon Dioxide (21.0-32.0) mmol/L BUN (7.0-18.0) mg/dL Creatinine (0.6-1.0) mg/dL Est Cr Clr Drug Dosing mL/min Estimated GFR (MDRD) ml/min Glucose (74-106) mg/dL POC Glucose 189 H 184 H (70-99) mg/dL Calcium (8.5-10.1) mg/dL Total Bilirubin (0.2-1.0) mg/dL AST (15-37) IU/L ALT (14-63) IU/L Alkaline Phosphatase (46-116) U/L Total Protein (6.4-8.2) g/dL Albumin (3.4-5.0) g/dL Globulin (2.6-4.0) g/dL Albumin/Globulin Ratio (0.9-1.6) Procalcitonin 0.16 H ng/mL 04/12/21 04/12/21 04/12/21 Range/Units 05:30 05:30 07:55 WBC 6.31 (4.0-11.0) K/uL RBC 5.00 (4.30-5.90) M/uL Hgb 14.4 (12.0-16.0) g/dL Hct 45.2 (36.0-46.0) % MCV 90.4 (80.0-98.0) fL MCH 28.8 (27.0-32.0) pg MCHC 31.9 (31.0-37.0) g/dL RDW Std Deviation 54.7 (28.0-62.0) fl RDW Coeff of Win 17 H (11.0-15.0) % Plt Count 140 L (150-400) K/uL MPV 11.20 (7.40-12.00) fL Neut % (Auto) 90.4 H (48.0-80.0) % Lymph % (Auto) 4.3 L (16.0-40.0) % [place] % (Auto) 5.1 (0.0-15.0) % Eos % (Auto) 0.0 (0.0-7.0) % Baso % (Auto) 0.2 (0.0-1.5) % Neut # (Auto) 5.7 (1.4-5.7) K/uL Lymph # (Auto) 0.3 L (0.6-2.4) K/uL [place] # (Auto) 0.3 (0.0-0.8) K/uL Eos # (Auto) 0.0 (0.0-0.7) K/uL Baso # (Auto) 0.0 (0.0-0.1) K/uL Nucleated RBC % 0.0 /100WBC Nucleated RBCs # 0 K/uL Sodium 149 H (136-145) mmol/L Potassium 5.1 (3.5-5.1) mmol/L Chloride 118 H (98-107) mmol/L Carbon Dioxide 15.3 L (21.0-32.0) mmol/L BUN 80 H (7.0-18.0) mg/dL Creatinine 2.5 H (0.6-1.0) mg/dL Est Cr Clr Drug Dosing 14.27 mL/min Estimated GFR (MDRD) 18.2 ml/min Glucose 214 H (74-106) mg/dL POC Glucose 171 H (70-99) mg/dL Calcium 8.3 L (8.5-10.1) mg/dL Total Bilirubin 1.0 (0.2-1.0) mg/dL AST 39 H (15-37) IU/L ALT 52 (14-63) IU/L Alkaline Phosphatase 56 (46-116) U/L Total Protein 6.4 (6.4-8.2) g/dL Albumin 2.6 L (3.4-5.0) g/dL Globulin 3.8 (2.6-4.0) g/dL Albumin/Globulin Ratio 0.7 L (0.9-1.6) Procalcitonin ng/mL 04/12/21 Range/Units 12:03 WBC (4.0-11.0) K/uL RBC (4.30-5.90) M/uL Hgb (12.0-16.0) g/dL Hct (36.0-46.0) % MCV (80.0-98.0) fL MCH (27.0-32.0) pg MCHC (31.0-37.0) g/dL RDW Std Deviation (28.0-62.0) fl RDW Coeff of Win (11.0-15.0) % Plt Count (150-400) K/uL MPV (7.40-12.00) fL Neut % (Auto) (48.0-80.0) % Lymph % (Auto) (16.0-40.0) % [place] % (Auto) (0.0-15.0) % Eos % (Auto) (0.0-7.0) % Baso % (Auto) (0.0-1.5) % Neut # (Auto) (1.4-5.7) K/uL Lymph # (Auto) (0.6-2.4) K/uL [place] # (Auto) (0.0-0.8) K/uL Eos # (Auto) (0.0-0.7) K/uL Baso # (Auto) (0.0-0.1) K/uL Nucleated RBC % /100WBC Nucleated RBCs # K/uL Sodium (136-145) mmol/L Potassium (3.5-5.1) mmol/L Chloride (98-107) mmol/L Carbon Dioxide (21.0-32.0) mmol/L BUN (7.0-18.0) mg/dL Creatinine (0.6-1.0) mg/dL Est Cr Clr Drug Dosing mL/min Estimated GFR (MDRD) ml/min Glucose (74-106) mg/dL POC Glucose 177 H (70-99) mg/dL Calcium (8.5-10.1) mg/dL Total Bilirubin (0.2-1.0) mg/dL AST (15-37) IU/L ALT (14-63) IU/L Alkaline Phosphatase (46-116) U/L Total Protein (6.4-8.2) g/dL Albumin (3.4-5.0) g/dL Globulin (2.6-4.0) g/dL Albumin/Globulin Ratio (0.9-1.6) Procalcitonin ng/mL Paul Results Last 24 Hours: Microbiology 04/07/21 20:54 Aerobic Blood Culture - Preliminary Blood NO GROWTH AFTER 4 DAYS Anaerobic Blood Culture - Preliminary NO GROWTH AFTER 4 DAYS 04/07/21 20:48 Aerobic Blood Culture - Preliminary Blood NO GROWTH AFTER 4 DAYS Anaerobic Blood Culture - Final Med Orders - Current: Current Medications Albuterol/Ipratropium (Albuterol/Ipratropium 3.0-0.5 Mg/3 Ml Neb Soln) 3 ml NEB Q4HRRT [facility] Last Admin: 04/12/21 09:54 Dose: 3 ml Documented by: Amlodipine Besylate (Amlodipine 5 Mg Tab) 5 mg PO DAILY [facility] Last Admin: 04/12/21 08:52 Dose: 5 mg Documented by: Atorvastatin Calcium (Atorvastatin 20 Mg Tab) 20 mg PO BEDTIME [facility] Last Admin: 04/11/21 20:58 Dose: 20 mg Documented by: Baricitinib (Baricitinib 2 Mg Tab) 1 mg PO Q24H [facility] Last Admin: 04/11/21 19:13 Dose: Not Given Documented by: Dexamethasone (Dexamethasone 4 Mg Tab) 6 mg PO DAILY [facility] Last Admin: 04/12/21 08:52 Dose: 6 mg Documented by: Dextrose/Water (50% Dextrose In Water 50 Ml Syringe) 50 ml IVPUSH ASDIRECTED PRN PRN Reason: Hypoglycemia Enoxaparin Sodium (Enoxaparin 30 Mg/0.3 Ml Syringe) 30 mg SUBCUT Q24H [facility] Last Admin: 04/12/21 08:52 Dose: 30 mg Documented by: Glucagon (Glucagon,Human Recombinant 1 Mg Vial) 1 mg IM ASDIRECTED PRN PRN Reason: Hypoglycemia Remdesivir 100 mg/ Sodium (Chloride) 100 mls @ 100 mls/hr IV Q24H [facility] Stop: 04/12/21 14:59 Last Admin: 04/11/21 15:20 Dose: 100 mls/hr Documented by: Insulin Aspart (Insulin Aspart 100 Units/Ml 3 Ml Pen) 0 unit SUBCUT QIDACANDBED [facility]; Protocol Last Admin: 04/12/21 12:06 Dose: 1 unit Documented by: Losartan Potassium (Losartan 50 Mg Tab) 50 mg PO BEDTIME [facility] Last Admin: 04/11/21 20:58 Dose: 50 mg Documented by: Metoprolol Succinate (Metoprolol Succinate 50 Mg Tab.Er) 50 mg PO DAILY [facility] Last Admin: 04/12/21 08:55 Dose: 50 mg Documented by: Pantoprazole Sodium (Pantoprazole 40 Mg Tab.Cr) 40 mg PO DAILY [facility] Last Admin: 04/12/21 08:52 Dose: 40 mg Documented by: Discontinued Medications Remdesivir 200 mg/ Sodium (Chloride) 250 mls @ 250 mls/hr IV ONETIME ONE Stop: 04/08/21 15:14 Last Admin: 04/08/21 14:51 Dose: 250 mls/hr Documented by: Sodium Chloride (Sodium Chloride 0.45%) 1,000 mls @ 125 mls/hr IV ASDIRECTED CHUCKIE Last Infusion: 04/09/21 13:57 Dose: 0 mls/hr Documented by: Dextrose/Water (Dextrose 5% In Water) 500 mls @ 50 mls/hr IV ASDIRECTED CHUCKIE Stop: 04/11/21 20:14 - Exam General: Cooperative Lungs: Normal Respiratory Effort, Rhonchi Cardiovascular: Regular Rate, Regular Rhythm GI/Abdominal Exam: Soft, Non-Tender, No Distention Extremities: Non-Tender, No Pedal Edema Skin: Warm, Dry, Intact Neurological: No New Focal Deficit - Patient Data Lab Results Last 24 hrs: Laboratory Results - last 24 hr 04/10/21 04/11/21 04/11/21 Range/Units 18:35 19:16 21:29 WBC (4.0-11.0) K/uL RBC (4.30-5.90) M/uL Hgb (12.0-16.0) g/dL Hct (36.0-46.0) % MCV (80.0-98.0) fL MCH (27.0-32.0) pg MCHC (31.0-37.0) g/dL RDW Std Deviation (28.0-62.0) fl RDW Coeff of Win (11.0-15.0) % Plt Count (150-400) K/uL MPV (7.40-12.00) fL Neut % (Auto) (48.0-80.0) % Lymph % (Auto) (16.0-40.0) % [place] % (Auto) (0.0-15.0) % Eos % (Auto) (0.0-7.0) % Baso % (Auto) (0.0-1.5) % Neut # (Auto) (1.4-5.7) K/uL Lymph # (Auto) (0.6-2.4) K/uL [place] # (Auto) (0.0-0.8) K/uL Eos # (Auto) (0.0-0.7) K/uL Baso # (Auto) (0.0-0.1) K/uL Nucleated RBC % /100WBC Nucleated RBCs # K/uL Sodium (136-145) mmol/L Potassium (3.5-5.1) mmol/L Chloride (98-107) mmol/L Carbon Dioxide (21.0-32.0) mmol/L BUN (7.0-18.0) mg/dL Creatinine (0.6-1.0) mg/dL Est Cr Clr Drug Dosing mL/min Estimated GFR (MDRD) ml/min Glucose (74-106) mg/dL POC Glucose 189 H 184 H (70-99) mg/dL Calcium (8.5-10.1) mg/dL Total Bilirubin (0.2-1.0) mg/dL AST (15-37) IU/L ALT (14-63) IU/L Alkaline Phosphatase (46-116) U/L Total Protein (6.4-8.2) g/dL Albumin (3.4-5.0) g/dL Globulin (2.6-4.0) g/dL Albumin/Globulin Ratio (0.9-1.6) Procalcitonin 0.16 H ng/mL 04/12/21 04/12/21 04/12/21 Range/Units 05:30 05:30 07:55 WBC 6.31 (4.0-11.0) K/uL RBC 5.00 (4.30-5.90) M/uL Hgb 14.4 (12.0-16.0) g/dL Hct 45.2 (36.0-46.0) % MCV 90.4 (80.0-98.0) fL MCH 28.8 (27.0-32.0) pg MCHC 31.9 (31.0-37.0) g/dL RDW Std Deviation 54.7 (28.0-62.0) fl RDW Coeff of Win 17 H (11.0-15.0) % Plt Count 140 L (150-400) K/uL MPV 11.20 (7.40-12.00) fL Neut % (Auto) 90.4 H (48.0-80.0) % Lymph % (Auto) 4.3 L (16.0-40.0) % [place] % (Auto) 5.1 (0.0-15.0) % Eos % (Auto) 0.0 (0.0-7.0) % Baso % (Auto) 0.2 (0.0-1.5) % Neut # (Auto) 5.7 (1.4-5.7) K/uL Lymph # (Auto) 0.3 L (0.6-2.4) K/uL [place] # (Auto) 0.3 (0.0-0.8) K/uL Eos # (Auto) 0.0 (0.0-0.7) K/uL Baso # (Auto) 0.0 (0.0-0.1) K/uL Nucleated RBC % 0.0 /100WBC Nucleated RBCs # 0 K/uL Sodium 149 H (136-145) mmol/L Potassium 5.1 (3.5-5.1) mmol/L Chloride 118 H (98-107) mmol/L Carbon Dioxide 15.3 L (21.0-32.0) mmol/L BUN 80 H (7.0-18.0) mg/dL Creatinine 2.5 H (0.6-1.0) mg/dL Est Cr Clr Drug Dosing 14.27 mL/min Estimated GFR (MDRD) 18.2 ml/min Glucose 214 H (74-106) mg/dL POC Glucose 171 H (70-99) mg/dL Calcium 8.3 L (8.5-10.1) mg/dL Total Bilirubin 1.0 (0.2-1.0) mg/dL AST 39 H (15-37) IU/L ALT 52 (14-63) IU/L Alkaline Phosphatase 56 (46-116) U/L Total Protein 6.4 (6.4-8.2) g/dL Albumin 2.6 L (3.4-5.0) g/dL Globulin 3.8 (2.6-4.0) g/dL Albumin/Globulin Ratio 0.7 L (0.9-1.6) Procalcitonin ng/mL 04/12/21 Range/Units 12:03 WBC (4.0-11.0) K/uL RBC (4.30-5.90) M/uL Hgb (12.0-16.0) g/dL Hct (36.0-46.0) % MCV (80.0-98.0) fL MCH (27.0-32.0) pg MCHC (31.0-37.0) g/dL RDW Std Deviation (28.0-62.0) fl RDW Coeff of Win (11.0-15.0) % Plt Count (150-400) K/uL MPV (7.40-12.00) fL Neut % (Auto) (48.0-80.0) % Lymph % (Auto) (16.0-40.0) % [place] % (Auto) (0.0-15.0) % Eos % (Auto) (0.0-7.0) % Baso % (Auto) (0.0-1.5) % Neut # (Auto) (1.4-5.7) K/uL Lymph # (Auto) (0.6-2.4) K/uL [place] # (Auto) (0.0-0.8) K/uL Eos # (Auto) (0.0-0.7) K/uL Baso # (Auto) (0.0-0.1) K/uL Nucleated RBC % /100WBC Nucleated RBCs # K/uL Sodium (136-145) mmol/L Potassium (3.5-5.1) mmol/L Chloride (98-107) mmol/L Carbon Dioxide (21.0-32.0) mmol/L BUN (7.0-18.0) mg/dL Creatinine (0.6-1.0) mg/dL Est Cr Clr Drug Dosing mL/min Estimated GFR (MDRD) ml/min Glucose (74-106) mg/dL POC Glucose 177 H (70-99) mg/dL Calcium (8.5-10.1) mg/dL Total Bilirubin (0.2-1.0) mg/dL AST (15-37) IU/L ALT (14-63) IU/L Alkaline Phosphatase (46-116) U/L Total Protein (6.4-8.2) g/dL Albumin (3.4-5.0) g/dL Globulin (2.6-4.0) g/dL Albumin/Globulin Ratio (0.9-1.6) Procalcitonin ng/mL Result Diagrams: 04/12/21 05:30 04/12/21 05:30 Paul Results Last 24 hrs: Microbiology 04/07/21 20:54 Aerobic Blood Culture - Preliminary Blood NO GROWTH AFTER 4 DAYS Anaerobic Blood Culture - Preliminary NO GROWTH AFTER 4 DAYS 04/07/21 20:48 Aerobic Blood Culture - Preliminary Blood NO GROWTH AFTER 4 DAYS Anaerobic Blood Culture - Final Sepsis Event Note - Evaluation Sepsis Screening Result: Possible Sepsis Risk - Focused Exam Vital Signs: Vital Signs Temp Pulse Resp BP BP Pulse Ox 04/12/21 12:00 36.4 C 16 141/72 H 92 L 04/12/21 11:00 36.4 C 17 88 L 04/12/21 10:00 36.4 C 17 151/112 H 89 L 04/12/21 09:00 22 H 145/78 H 87 L 04/12/21 08:55 90 97/66 04/12/21 08:52 119/63 04/12/21 08:00 18 89 L 04/12/21 07:00 18 89 L 04/12/21 06:00 17 121/68 90 L 04/12/21 05:00 19 138/71 91 L 04/12/21 04:00 36.2 C 18 125/57 L 90 L 04/12/21 03:00 20 162/81 H 90 L 04/12/21 02:00 19 89 L - Problem List & Annotations (1) Acute respiratory failure due to COVID-19 SNOMED Code(s): 464391369 Code(s): U07.1 - COVID-19; J96.00 - ACUTE RESPIRATORY FAILURE, UNSP W HYPOXIA OR HYPERCAPNIA Status: Acute Current Visit: No (2) Pneumonia due to COVID-19 virus SNOMED Code(s): 965121424479905551 Code(s): U07.1 - COVID-19; J12.82 - PNEUMONIA DUE TO CORONAVIRUS DISEASE 2019 Status: Acute Current Visit: No - Problem List Review Problem List Initiated/Reviewed/Updated: Yes - My Orders Last 24 Hours: My Active Orders 04/12/21 10:35 Transfer Patient (Change bed) [ADT] Routine - Plan Plan:: 85 yo female admitted with COVID with hypoxia hypoxia: on 15 L highflow NC COVID: continue desxamethason, barcitinib, and remdesivir 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
[2021-04-12] MEDS: REMDESIVIR 100 MG in Sodium Chloride 0.9% 100 ML IV SCH (14:25)
[2021-04-12] MEDS: atorvaSTATin 20 MG Tab PO SCH (21:46)
[2021-04-12] MEDS: Losartan 50 MG Tab PO SCH (21:46)
[2021-04-13] MEDS: Albuterol/Ipratropium 3.0-0.5 MG/3 ML Neb Soln NEB SCH ×4 (00:16→17:40)
[2021-04-13] MEDS: Insulin Aspart 100 Units/ML 3 ML Pen SUBCUT SCH ×4 (07:27→20:12)
[2021-04-13 07:46] LABS: CARBON DIOXIDE,CO2 17.5 mmol/L (21.0-32.0); POTASSIUM,K 5.4 mmol/L (3.5-5.1)
[2021-04-13] MEDS: Pantoprazole 40 MG Tab.CR PO SCH (08:10)
[2021-04-13] MEDS: Dexamethasone 4 MG Tab PO SCH (08:10)
[2021-04-13] MEDS: Metoprolol Succinate 50 MG Tab.ER PO SCH (08:10)
[2021-04-13] MEDS: amLODIPine 5 MG Tab PO SCH (08:10)
[2021-04-13] MEDS: Enoxaparin 30 MG/0.3 ML Syringe SUBCUT SCH (08:10)
[2021-04-13] MEDS ORDERED: Sodium Chloride 0.45% 1,000 ML IV SCH (09:15)
--- NOTE | 2021-04-13 12:11 | PCM.PN ---
- General Info Date of Service: 04/13/21 - Review of Systems Systems Review Comment:: a little more alert today, no pain - Patient Data Vitals - Most Recent: Last Vital Signs Temp 35.7 C L 04/13/21 11:48 Pulse 71 04/13/21 11:48 Resp 20 04/13/21 11:48 BP 117/61 04/13/21 11:48 Pulse Ox 93 L 04/13/21 10:10 Weight - Most Recent: 84.5 kg I&O - Last 24 Hours: Intake & Output 04/12/21 04/13/21 04/13/21 22:59 06:59 14:59 Intake Total 300 625 100 Balance 300 625 100 Lab Results Last 24 Hours: Laboratory Results - last 24 hr 04/12/21 04/12/21 04/12/21 Range/Units 12:03 16:29 21:44 WBC (4.0-11.0) K/uL RBC (4.30-5.90) M/uL Hgb (12.0-16.0) g/dL Hct (36.0-46.0) % MCV (80.0-98.0) fL MCH (27.0-32.0) pg MCHC (31.0-37.0) g/dL RDW Std Deviation (28.0-62.0) fl RDW Coeff of Win (11.0-15.0) % Plt Count (150-400) K/uL MPV (7.40-12.00) fL Neut % (Auto) (48.0-80.0) % Lymph % (Auto) (16.0-40.0) % [place] % (Auto) (0.0-15.0) % Eos % (Auto) (0.0-7.0) % Baso % (Auto) (0.0-1.5) % Neut # (Auto) (1.4-5.7) K/uL Lymph # (Auto) (0.6-2.4) K/uL [place] # (Auto) (0.0-0.8) K/uL Eos # (Auto) (0.0-0.7) K/uL Baso # (Auto) (0.0-0.1) K/uL Nucleated RBC % /100WBC Nucleated RBCs # K/uL Sodium (136-145) mmol/L Potassium (3.5-5.1) mmol/L Chloride (98-107) mmol/L Carbon Dioxide (21.0-32.0) mmol/L BUN (7.0-18.0) mg/dL Creatinine (0.6-1.0) mg/dL Est Cr Clr Drug Dosing mL/min Estimated GFR (MDRD) ml/min Glucose (74-106) mg/dL POC Glucose 177 H 207 H 225 H (70-99) mg/dL Calcium (8.5-10.1) mg/dL Total Bilirubin (0.2-1.0) mg/dL AST (15-37) IU/L ALT (14-63) IU/L Alkaline Phosphatase (46-116) U/L Total Protein (6.4-8.2) g/dL Albumin (3.4-5.0) g/dL Globulin (2.6-4.0) g/dL Albumin/Globulin Ratio (0.9-1.6) 04/13/21 04/13/21 04/13/21 Range/Units 06:40 07:05 07:05 WBC 8.28 (4.0-11.0) K/uL RBC 4.90 (4.30-5.90) M/uL Hgb 14.1 (12.0-16.0) g/dL Hct 44.4 (36.0-46.0) % MCV 90.6 (80.0-98.0) fL MCH 28.8 (27.0-32.0) pg MCHC 31.8 (31.0-37.0) g/dL RDW Std Deviation 54.5 (28.0-62.0) fl RDW Coeff of Win 16 H (11.0-15.0) % Plt Count 137 L (150-400) K/uL MPV 10.70 (7.40-12.00) fL Neut % (Auto) 90.1 H (48.0-80.0) % Lymph % (Auto) 5.2 L (16.0-40.0) % [place] % (Auto) 4.7 (0.0-15.0) % Eos % (Auto) 0.0 (0.0-7.0) % Baso % (Auto) 0.0 (0.0-1.5) % Neut # (Auto) 7.5 H (1.4-5.7) K/uL Lymph # (Auto) 0.4 L (0.6-2.4) K/uL [place] # (Auto) 0.4 (0.0-0.8) K/uL Eos # (Auto) 0.0 (0.0-0.7) K/uL Baso # (Auto) 0.0 (0.0-0.1) K/uL Nucleated RBC % 0.0 /100WBC Nucleated RBCs # 0 K/uL Sodium 146 H (136-145) mmol/L Potassium 5.4 H (3.5-5.1) mmol/L Chloride 116 H (98-107) mmol/L Carbon Dioxide 17.5 L (21.0-32.0) mmol/L BUN 87 H (7.0-18.0) mg/dL Creatinine 2.8 H (0.6-1.0) mg/dL Est Cr Clr Drug Dosing 12.74 mL/min Estimated GFR (MDRD) 16.0 ml/min Glucose 175 H (74-106) mg/dL POC Glucose 138 H (70-99) mg/dL Calcium 8.1 L (8.5-10.1) mg/dL Total Bilirubin 1.0 (0.2-1.0) mg/dL AST 37 (15-37) IU/L ALT 52 (14-63) IU/L Alkaline Phosphatase 51 (46-116) U/L Total Protein 6.1 L (6.4-8.2) g/dL Albumin 2.6 L (3.4-5.0) g/dL Globulin 3.5 (2.6-4.0) g/dL Albumin/Globulin Ratio 0.7 L (0.9-1.6) 04/13/21 Range/Units 11:31 WBC (4.0-11.0) K/uL RBC (4.30-5.90) M/uL Hgb (12.0-16.0) g/dL Hct (36.0-46.0) % MCV (80.0-98.0) fL MCH (27.0-32.0) pg MCHC (31.0-37.0) g/dL RDW Std Deviation (28.0-62.0) fl RDW Coeff of Win (11.0-15.0) % Plt Count (150-400) K/uL MPV (7.40-12.00) fL Neut % (Auto) (48.0-80.0) % Lymph % (Auto) (16.0-40.0) % [place] % (Auto) (0.0-15.0) % Eos % (Auto) (0.0-7.0) % Baso % (Auto) (0.0-1.5) % Neut # (Auto) (1.4-5.7) K/uL Lymph # (Auto) (0.6-2.4) K/uL [place] # (Auto) (0.0-0.8) K/uL Eos # (Auto) (0.0-0.7) K/uL Baso # (Auto) (0.0-0.1) K/uL Nucleated RBC % /100WBC Nucleated RBCs # K/uL Sodium (136-145) mmol/L Potassium (3.5-5.1) mmol/L Chloride (98-107) mmol/L Carbon Dioxide (21.0-32.0) mmol/L BUN (7.0-18.0) mg/dL Creatinine (0.6-1.0) mg/dL Est Cr Clr Drug Dosing mL/min Estimated GFR (MDRD) ml/min Glucose (74-106) mg/dL POC Glucose 212 H (70-99) mg/dL Calcium (8.5-10.1) mg/dL Total Bilirubin (0.2-1.0) mg/dL AST (15-37) IU/L ALT (14-63) IU/L Alkaline Phosphatase (46-116) U/L Total Protein (6.4-8.2) g/dL Albumin (3.4-5.0) g/dL Globulin (2.6-4.0) g/dL Albumin/Globulin Ratio (0.9-1.6) Paul Results Last 24 Hours: Microbiology 04/07/21 20:54 Aerobic Blood Culture - Final Blood NO GROWTH AFTER 5 DAYS Anaerobic Blood Culture - Final NO GROWTH AFTER 5 DAYS 04/07/21 20:48 Aerobic Blood Culture - Final Blood NO GROWTH AFTER 5 DAYS Anaerobic Blood Culture - Final Med Orders - Current: Current Medications Albuterol/Ipratropium (Albuterol/Ipratropium 3.0-0.5 Mg/3 Ml Neb Soln) 3 ml NEB Q6HRRT [facility] Last Admin: 04/13/21 11:31 Dose: 3 ml Documented by: Amlodipine Besylate (Amlodipine 5 Mg Tab) 5 mg PO DAILY [facility] Last Admin: 04/13/21 08:10 Dose: 5 mg Documented by: Atorvastatin Calcium (Atorvastatin 20 Mg Tab) 20 mg PO BEDTIME [facility] Last Admin: 04/12/21 21:46 Dose: 20 mg Documented by: Baricitinib (Baricitinib 2 Mg Tab) 1 mg PO Q24H [facility] Last Admin: 04/12/21 17:30 Dose: 1 mg Documented by: Dexamethasone (Dexamethasone 4 Mg Tab) 6 mg PO DAILY [facility] Last Admin: 04/13/21 08:10 Dose: 6 mg Documented by: Dextrose/Water (50% Dextrose In Water 50 Ml Syringe) 50 ml IVPUSH ASDIRECTED PRN PRN Reason: Hypoglycemia Enoxaparin Sodium (Enoxaparin 30 Mg/0.3 Ml Syringe) 30 mg SUBCUT Q24H [facility] Last Admin: 04/13/21 08:10 Dose: 30 mg Documented by: Glucagon (Glucagon,Human Recombinant 1 Mg Vial) 1 mg IM ASDIRECTED PRN PRN Reason: Hypoglycemia Sodium Chloride (Sodium Chloride 0.45%) 1,000 mls @ 100 mls/hr IV ASDIRECTED [facility] Stop: 04/13/21 14:00 Last Admin: 04/13/21 09:59 Dose: 100 mls/hr Documented by: Insulin Aspart (Insulin Aspart 100 Units/Ml 3 Ml Pen) 0 unit SUBCUT QIDACANDBED [facility]; Protocol Last Admin: 04/13/21 07:27 Dose: Not Given Documented by: Losartan Potassium (Losartan 50 Mg Tab) 50 mg PO BEDTIME [facility] Last Admin: 04/12/21 21:46 Dose: 50 mg Documented by: Metoprolol Succinate (Metoprolol Succinate 50 Mg Tab.Er) 50 mg PO DAILY [facility] Last Admin: 04/13/21 08:10 Dose: 50 mg Documented by: Pantoprazole Sodium (Pantoprazole 40 Mg Tab.Cr) 40 mg PO DAILY [facility] Last Admin: 04/13/21 08:10 Dose: 40 mg Documented by: Discontinued Medications Albuterol/Ipratropium (Albuterol/Ipratropium 3.0-0.5 Mg/3 Ml Neb Soln) 3 ml NEB Q4HRRT [facility] Last Admin: 04/12/21 13:49 Dose: 3 ml Documented by: Remdesivir 200 mg/ Sodium (Chloride) 250 mls @ 250 mls/hr IV ONETIME ONE Stop: 04/08/21 15:14 Last Admin: 04/08/21 14:51 Dose: 250 mls/hr Documented by: Remdesivir 100 mg/ Sodium (Chloride) 100 mls @ 100 mls/hr IV Q24H [facility] Stop: 04/12/21 14:59 Last Admin: 04/12/21 14:25 Dose: 100 mls/hr Documented by: Sodium Chloride (Sodium Chloride 0.45%) 1,000 mls @ 125 mls/hr IV ASDIRECTED [facility] Last Infusion: 04/09/21 13:57 Dose: 0 mls/hr Documented by: Dextrose/Water (Dextrose 5% In Water) 500 mls @ 50 mls/hr IV ASDIRECTED [facility] Stop: 04/11/21 20:14 - Exam General: Alert, Oriented Neck: Supple Lungs: Clear to Auscultation, Normal Respiratory Effort Cardiovascular: Regular Rate, Regular Rhythm GI/Abdominal Exam: Soft, Non-Tender Skin: Warm, Dry, Intact Neurological: No New Focal Deficit - Patient Data Lab Results Last 24 hrs: Laboratory Results - last 24 hr 04/12/21 04/12/21 04/12/21 Range/Units 12:03 16:29 21:44 WBC (4.0-11.0) K/uL RBC (4.30-5.90) M/uL Hgb (12.0-16.0) g/dL Hct (36.0-46.0) % MCV (80.0-98.0) fL MCH (27.0-32.0) pg MCHC (31.0-37.0) g/dL RDW Std Deviation (28.0-62.0) fl RDW Coeff of Win (11.0-15.0) % Plt Count (150-400) K/uL MPV (7.40-12.00) fL Neut % (Auto) (48.0-80.0) % Lymph % (Auto) (16.0-40.0) % [place] % (Auto) (0.0-15.0) % Eos % (Auto) (0.0-7.0) % Baso % (Auto) (0.0-1.5) % Neut # (Auto) (1.4-5.7) K/uL Lymph # (Auto) (0.6-2.4) K/uL [place] # (Auto) (0.0-0.8) K/uL Eos # (Auto) (0.0-0.7) K/uL Baso # (Auto) (0.0-0.1) K/uL Nucleated RBC % /100WBC Nucleated RBCs # K/uL Sodium (136-145) mmol/L Potassium (3.5-5.1) mmol/L Chloride (98-107) mmol/L Carbon Dioxide (21.0-32.0) mmol/L BUN (7.0-18.0) mg/dL Creatinine (0.6-1.0) mg/dL Est Cr Clr Drug Dosing mL/min Estimated GFR (MDRD) ml/min Glucose (74-106) mg/dL POC Glucose 177 H 207 H 225 H (70-99) mg/dL Calcium (8.5-10.1) mg/dL Total Bilirubin (0.2-1.0) mg/dL AST (15-37) IU/L ALT (14-63) IU/L Alkaline Phosphatase (46-116) U/L Total Protein (6.4-8.2) g/dL Albumin (3.4-5.0) g/dL Globulin (2.6-4.0) g/dL Albumin/Globulin Ratio (0.9-1.6) 04/13/21 04/13/21 04/13/21 Range/Units 06:40 07:05 07:05 WBC 8.28 (4.0-11.0) K/uL RBC 4.90 (4.30-5.90) M/uL Hgb 14.1 (12.0-16.0) g/dL Hct 44.4 (36.0-46.0) % MCV 90.6 (80.0-98.0) fL MCH 28.8 (27.0-32.0) pg MCHC 31.8 (31.0-37.0) g/dL RDW Std Deviation 54.5 (28.0-62.0) fl RDW Coeff of Win 16 H (11.0-15.0) % Plt Count 137 L (150-400) K/uL MPV 10.70 (7.40-12.00) fL Neut % (Auto) 90.1 H (48.0-80.0) % Lymph % (Auto) 5.2 L (16.0-40.0) % [place] % (Auto) 4.7 (0.0-15.0) % Eos % (Auto) 0.0 (0.0-7.0) % Baso % (Auto) 0.0 (0.0-1.5) % Neut # (Auto) 7.5 H (1.4-5.7) K/uL Lymph # (Auto) 0.4 L (0.6-2.4) K/uL [place] # (Auto) 0.4 (0.0-0.8) K/uL Eos # (Auto) 0.0 (0.0-0.7) K/uL Baso # (Auto) 0.0 (0.0-0.1) K/uL Nucleated RBC % 0.0 /100WBC Nucleated RBCs # 0 K/uL Sodium 146 H (136-145) mmol/L Potassium 5.4 H (3.5-5.1) mmol/L Chloride 116 H (98-107) mmol/L Carbon Dioxide 17.5 L (21.0-32.0) mmol/L BUN 87 H (7.0-18.0) mg/dL Creatinine 2.8 H (0.6-1.0) mg/dL Est Cr Clr Drug Dosing 12.74 mL/min Estimated GFR (MDRD) 16.0 ml/min Glucose 175 H (74-106) mg/dL POC Glucose 138 H (70-99) mg/dL Calcium 8.1 L (8.5-10.1) mg/dL Total Bilirubin 1.0 (0.2-1.0) mg/dL AST 37 (15-37) IU/L ALT 52 (14-63) IU/L Alkaline Phosphatase 51 (46-116) U/L Total Protein 6.1 L (6.4-8.2) g/dL Albumin 2.6 L (3.4-5.0) g/dL Globulin 3.5 (2.6-4.0) g/dL Albumin/Globulin Ratio 0.7 L (0.9-1.6) 04/13/21 Range/Units 11:31 WBC (4.0-11.0) K/uL RBC (4.30-5.90) M/uL Hgb (12.0-16.0) g/dL Hct (36.0-46.0) % MCV (80.0-98.0) fL MCH (27.0-32.0) pg MCHC (31.0-37.0) g/dL RDW Std Deviation (28.0-62.0) fl RDW Coeff of Win (11.0-15.0) % Plt Count (150-400) K/uL MPV (7.40-12.00) fL Neut % (Auto) (48.0-80.0) % Lymph % (Auto) (16.0-40.0) % [place] % (Auto) (0.0-15.0) % Eos % (Auto) (0.0-7.0) % Baso % (Auto) (0.0-1.5) % Neut # (Auto) (1.4-5.7) K/uL Lymph # (Auto) (0.6-2.4) K/uL [place] # (Auto) (0.0-0.8) K/uL Eos # (Auto) (0.0-0.7) K/uL Baso # (Auto) (0.0-0.1) K/uL Nucleated RBC % /100WBC Nucleated RBCs # K/uL Sodium (136-145) mmol/L Potassium (3.5-5.1) mmol/L Chloride (98-107) mmol/L Carbon Dioxide (21.0-32.0) mmol/L BUN (7.0-18.0) mg/dL Creatinine (0.6-1.0) mg/dL Est Cr Clr Drug Dosing mL/min Estimated GFR (MDRD) ml/min Glucose (74-106) mg/dL POC Glucose 212 H (70-99) mg/dL Calcium (8.5-10.1) mg/dL Total Bilirubin (0.2-1.0) mg/dL AST (15-37) IU/L ALT (14-63) IU/L Alkaline Phosphatase (46-116) U/L Total Protein (6.4-8.2) g/dL Albumin (3.4-5.0) g/dL Globulin (2.6-4.0) g/dL Albumin/Globulin Ratio (0.9-1.6) Result Diagrams: 04/13/21 07:05 04/13/21 07:05 Paul Results Last 24 hrs: Microbiology 04/07/21 20:54 Aerobic Blood Culture - Final Blood NO GROWTH AFTER 5 DAYS Anaerobic Blood Culture - Final NO GROWTH AFTER 5 DAYS 04/07/21 20:48 Aerobic Blood Culture - Final Blood NO GROWTH AFTER 5 DAYS Anaerobic Blood Culture - Final Sepsis Event Note - Evaluation Sepsis Screening Result: Possible Sepsis Risk - Focused Exam Vital Signs: Vital Signs Temp Pulse Pulse Resp BP BP Pulse Ox 04/13/21 11:48 35.7 C L 71 20 117/61 04/13/21 10:10 16 93 L 04/13/21 08:10 76 106/49 L 04/13/21 08:09 36.4 C 78 16 106/49 L 96 04/13/21 05:00 36.0 C L 83 16 136/53 L 92 L 04/13/21 01:12 95 - Problem List & Annotations (1) Acute respiratory failure due to COVID-19 SNOMED Code(s): 499240106 Code(s): U07.1 - COVID-19; J96.00 - ACUTE RESPIRATORY FAILURE, UNSP W HYPOXIA OR HYPERCAPNIA Status: Acute Current Visit: No (2) Pneumonia due to COVID-19 virus SNOMED Code(s): 247662355748664091 Code(s): U07.1 - COVID-19; J12.82 - PNEUMONIA DUE TO CORONAVIRUS DISEASE 2019 Status: Acute Current Visit: No - Problem List Review Problem List Initiated/Reviewed/Updated: Yes - My Orders Last 24 Hours: My Active Orders 04/12/21 14:32 RT Aerosol Therapy [RC] ASDIRECTED 04/12/21 18:00 Albuterol/Ipratropium [DuoNeb 3.0-0.5 MG/3 ML] 3 ml NEB Q6HRRT 04/13/21 09:15 Sodium Chloride 0.45% 1,000 ml IV ASDIRECTED - Plan Plan:: 85 yo female admitted with COVID with hypoxia hypoxia: on 3 L NC COVID: continue desxamethason, barcitinib, and finished five days of remdesivir 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
[2021-04-13] MEDS: Nystatin Topical Powder 15 GM Bottle TOP SCH ×2 (14:33→21:50)
[2021-04-13] MEDS: Losartan 50 MG Tab PO SCH (20:13)
[2021-04-13] MEDS: atorvaSTATin 20 MG Tab PO SCH (20:14)
[2021-04-14] MEDS: Albuterol/Ipratropium 3.0-0.5 MG/3 ML Neb Soln NEB SCH ×4 (00:36→17:08)
[2021-04-14 08:25] LABS: CARBON DIOXIDE,CO2 14.5 mmol/L (21.0-32.0); POTASSIUM,K 5.3 mmol/L (3.5-5.1)
[2021-04-14] MEDS: Pantoprazole 40 MG Tab.CR PO SCH (08:41)
[2021-04-14] MEDS: amLODIPine 5 MG Tab PO SCH (08:42)
[2021-04-14] MEDS: Metoprolol Succinate 50 MG Tab.ER PO SCH (08:46)
[2021-04-14] MEDS: Dexamethasone 4 MG Tab PO SCH (08:48)
[2021-04-14] MEDS: Nystatin Topical Powder 15 GM Bottle TOP SCH ×2 (08:51→21:38)
[2021-04-14] MEDS: Insulin Aspart 100 Units/ML 3 ML Pen SUBCUT SCH ×4 (08:53→21:32)
[2021-04-14] MEDS: Enoxaparin 30 MG/0.3 ML Syringe SUBCUT SCH (09:02)
--- NOTE | 2021-04-14 13:45 | PCM.PN ---
- General Info Date of Service: 04/14/21 - Review of Systems Systems Review Comment:: nonverbal today - Patient Data Vitals - Most Recent: Last Vital Signs Temp 35.6 C L 04/14/21 11:51 Pulse 74 04/14/21 11:51 Resp 22 H 04/14/21 11:51 BP 101/44 L 04/14/21 11:51 Pulse Ox 90 L 04/14/21 11:51 Weight - Most Recent: 87 kg I&O - Last 24 Hours: Intake & Output 04/13/21 04/14/21 04/14/21 22:59 06:59 14:59 Intake Total 1000 1500 Balance 1000 1500 Lab Results Last 24 Hours: Laboratory Results - last 24 hr 04/13/21 04/13/21 04/14/21 Range/Units 17:08 20:11 05:30 WBC (4.0-11.0) K/uL RBC (4.30-5.90) M/uL Hgb (12.0-16.0) g/dL Hct (36.0-46.0) % MCV (80.0-98.0) fL MCH (27.0-32.0) pg MCHC (31.0-37.0) g/dL RDW Std Deviation (28.0-62.0) fl RDW Coeff of Win (11.0-15.0) % Plt Count (150-400) K/uL MPV (7.40-12.00) fL Neut % (Auto) (48.0-80.0) % Lymph % (Auto) (16.0-40.0) % [place] % (Auto) (0.0-15.0) % Eos % (Auto) (0.0-7.0) % Baso % (Auto) (0.0-1.5) % Neut # (Auto) (1.4-5.7) K/uL Lymph # (Auto) (0.6-2.4) K/uL [place] # (Auto) (0.0-0.8) K/uL Eos # (Auto) (0.0-0.7) K/uL Baso # (Auto) (0.0-0.1) K/uL Nucleated RBC % /100WBC Nucleated RBCs # K/uL Sodium (136-145) mmol/L Potassium (3.5-5.1) mmol/L Chloride (98-107) mmol/L Carbon Dioxide (21.0-32.0) mmol/L BUN (7.0-18.0) mg/dL Creatinine (0.6-1.0) mg/dL Est Cr Clr Drug Dosing mL/min Estimated GFR (MDRD) ml/min Glucose (74-106) mg/dL POC Glucose 241 H 242 H 155 H (70-99) mg/dL Calcium (8.5-10.1) mg/dL Total Bilirubin (0.2-1.0) mg/dL AST (15-37) IU/L ALT (14-63) IU/L Alkaline Phosphatase (46-116) U/L Total Protein (6.4-8.2) g/dL Albumin (3.4-5.0) g/dL Globulin (2.6-4.0) g/dL Albumin/Globulin Ratio (0.9-1.6) 04/14/21 04/14/21 04/14/21 Range/Units 07:10 07:10 12:14 WBC 10.14 (4.0-11.0) K/uL RBC 4.83 (4.30-5.90) M/uL Hgb 13.9 (12.0-16.0) g/dL Hct 43.8 (36.0-46.0) % MCV 90.7 (80.0-98.0) fL MCH 28.8 (27.0-32.0) pg MCHC 31.7 (31.0-37.0) g/dL RDW Std Deviation 52.9 (28.0-62.0) fl RDW Coeff of Win 16 H (11.0-15.0) % Plt Count 124 L (150-400) K/uL MPV 11.10 (7.40-12.00) fL Neut % (Auto) 91.7 H (48.0-80.0) % Lymph % (Auto) 5.0 L (16.0-40.0) % [place] % (Auto) 3.3 (0.0-15.0) % Eos % (Auto) 0.0 (0.0-7.0) % Baso % (Auto) 0.0 (0.0-1.5) % Neut # (Auto) 9.3 H (1.4-5.7) K/uL Lymph # (Auto) 0.5 L (0.6-2.4) K/uL [place] # (Auto) 0.3 (0.0-0.8) K/uL Eos # (Auto) 0.0 (0.0-0.7) K/uL Baso # (Auto) 0.0 (0.0-0.1) K/uL Nucleated RBC % 0.0 /100WBC Nucleated RBCs # 0 K/uL Sodium 140 (136-145) mmol/L Potassium 5.3 H (3.5-5.1) mmol/L Chloride 111 H (98-107) mmol/L Carbon Dioxide 14.5 L (21.0-32.0) mmol/L BUN 77 H (7.0-18.0) mg/dL Creatinine 2.4 H (0.6-1.0) mg/dL Est Cr Clr Drug Dosing 14.86 mL/min Estimated GFR (MDRD) 19.1 ml/min Glucose 157 H (74-106) mg/dL POC Glucose 198 H (70-99) mg/dL Calcium 7.9 L (8.5-10.1) mg/dL Total Bilirubin 0.9 (0.2-1.0) mg/dL AST 32 (15-37) IU/L ALT 49 (14-63) IU/L Alkaline Phosphatase 56 (46-116) U/L Total Protein 5.4 L (6.4-8.2) g/dL Albumin 2.5 L (3.4-5.0) g/dL Globulin 2.9 (2.6-4.0) g/dL Albumin/Globulin Ratio 0.9 (0.9-1.6) Med Orders - Current: Current Medications Albuterol/Ipratropium (Albuterol/Ipratropium 3.0-0.5 Mg/3 Ml Neb Soln) 3 ml NEB Q6HRRT [facility] Last Admin: 04/14/21 12:13 Dose: 3 ml Documented by: Amlodipine Besylate (Amlodipine 5 Mg Tab) 5 mg PO DAILY [facility] Last Admin: 04/14/21 08:42 Dose: 5 mg Documented by: Atorvastatin Calcium (Atorvastatin 20 Mg Tab) 20 mg PO BEDTIME [facility] Last Admin: 04/13/21 20:14 Dose: 20 mg Documented by: Baricitinib (Baricitinib 2 Mg Tab) 1 mg PO Q24H [facility] Last Admin: 04/13/21 17:16 Dose: 1 mg Documented by: Dexamethasone (Dexamethasone 4 Mg Tab) 6 mg PO DAILY [facility] Last Admin: 04/14/21 08:48 Dose: 6 mg Documented by: Dextrose/Water (50% Dextrose In Water 50 Ml Syringe) 50 ml IVPUSH ASDIRECTED PRN PRN Reason: Hypoglycemia Enoxaparin Sodium (Enoxaparin 30 Mg/0.3 Ml Syringe) 30 mg SUBCUT Q24H [facility] Last Admin: 04/14/21 09:02 Dose: 30 mg Documented by: Glucagon (Glucagon,Human Recombinant 1 Mg Vial) 1 mg IM ASDIRECTED PRN PRN Reason: Hypoglycemia Insulin Aspart (Insulin Aspart 100 Units/Ml 3 Ml Pen) 0 unit SUBCUT QIDACANDBED [facility]; Protocol Last Admin: 04/14/21 12:39 Dose: 1 unit Documented by: Losartan Potassium (Losartan 50 Mg Tab) 50 mg PO BEDTIME [facility] Last Admin: 04/13/21 20:13 Dose: 50 mg Documented by: Metoprolol Succinate (Metoprolol Succinate 50 Mg Tab.Er) 50 mg PO DAILY [facility] Last Admin: 04/14/21 08:46 Dose: 50 mg Documented by: Nystatin (Nystatin Topical Powder 15 Gm Bottle) 1 gm TOP BID [facility] Last Admin: 04/14/21 08:51 Dose: 1 applic Documented by: Pantoprazole Sodium (Pantoprazole 40 Mg Tab.Cr) 40 mg PO DAILY [facility] Last Admin: 04/14/21 08:41 Dose: 40 mg Documented by: Discontinued Medications Albuterol/Ipratropium (Albuterol/Ipratropium 3.0-0.5 Mg/3 Ml Neb Soln) 3 ml NEB Q4HRRT [facility] Last Admin: 04/12/21 13:49 Dose: 3 ml Documented by: Remdesivir 200 mg/ Sodium (Chloride) 250 mls @ 250 mls/hr IV ONETIME ONE Stop: 04/08/21 15:14 Last Admin: 04/08/21 14:51 Dose: 250 mls/hr Documented by: Remdesivir 100 mg/ Sodium (Chloride) 100 mls @ 100 mls/hr IV Q24H CHUCKIE Stop: 04/12/21 14:59 Last Admin: 04/12/21 14:25 Dose: 100 mls/hr Documented by: Sodium Chloride (Sodium Chloride 0.45%) 1,000 mls @ 125 mls/hr IV ASDIRECTED CHUCKIE Last Infusion: 04/09/21 13:57 Dose: 0 mls/hr Documented by: Dextrose/Water (Dextrose 5% In Water) 500 mls @ 50 mls/hr IV ASDIRECTED CHUCKIE Stop: 04/11/21 20:14 Sodium Chloride (Sodium Chloride 0.45%) 1,000 mls @ 100 mls/hr IV ASDIRECTED CHUCKIE Stop: 04/13/21 14:00 Last Admin: 04/13/21 09:59 Dose: 100 mls/hr Documented by: - Exam General: No Acute Distress Lungs: Clear to Auscultation, Normal Respiratory Effort Cardiovascular: Regular Rate, Regular Rhythm GI/Abdominal Exam: Soft, Non-Tender, No Distention Extremities: Non-Tender, No Pedal Edema Skin: Warm, Dry, Intact Neurological: No New Focal Deficit - Patient Data Lab Results Last 24 hrs: Laboratory Results - last 24 hr 04/13/21 04/13/21 04/14/21 Range/Units 17:08 20:11 05:30 WBC (4.0-11.0) K/uL RBC (4.30-5.90) M/uL Hgb (12.0-16.0) g/dL Hct (36.0-46.0) % MCV (80.0-98.0) fL MCH (27.0-32.0) pg MCHC (31.0-37.0) g/dL RDW Std Deviation (28.0-62.0) fl RDW Coeff of Win (11.0-15.0) % Plt Count (150-400) K/uL MPV (7.40-12.00) fL Neut % (Auto) (48.0-80.0) % Lymph % (Auto) (16.0-40.0) % Irion % (Auto) (0.0-15.0) % Eos % (Auto) (0.0-7.0) % Baso % (Auto) (0.0-1.5) % Neut # (Auto) (1.4-5.7) K/uL Lymph # (Auto) (0.6-2.4) K/uL Irion # (Auto) (0.0-0.8) K/uL Eos # (Auto) (0.0-0.7) K/uL Baso # (Auto) (0.0-0.1) K/uL Nucleated RBC % /100WBC Nucleated RBCs # K/uL Sodium (136-145) mmol/L Potassium (3.5-5.1) mmol/L Chloride (98-107) mmol/L Carbon Dioxide (21.0-32.0) mmol/L BUN (7.0-18.0) mg/dL Creatinine (0.6-1.0) mg/dL Est Cr Clr Drug Dosing mL/min Estimated GFR (MDRD) ml/min Glucose (74-106) mg/dL POC Glucose 241 H 242 H 155 H (70-99) mg/dL Calcium (8.5-10.1) mg/dL Total Bilirubin (0.2-1.0) mg/dL AST (15-37) IU/L ALT (14-63) IU/L Alkaline Phosphatase (46-116) U/L Total Protein (6.4-8.2) g/dL Albumin (3.4-5.0) g/dL Globulin (2.6-4.0) g/dL Albumin/Globulin Ratio (0.9-1.6) 04/14/21 04/14/21 04/14/21 Range/Units 07:10 07:10 12:14 WBC 10.14 (4.0-11.0) K/uL RBC 4.83 (4.30-5.90) M/uL Hgb 13.9 (12.0-16.0) g/dL Hct 43.8 (36.0-46.0) % MCV 90.7 (80.0-98.0) fL MCH 28.8 (27.0-32.0) pg MCHC 31.7 (31.0-37.0) g/dL RDW Std Deviation 52.9 (28.0-62.0) fl RDW Coeff of Win 16 H (11.0-15.0) % Plt Count 124 L (150-400) K/uL MPV 11.10 (7.40-12.00) fL Neut % (Auto) 91.7 H (48.0-80.0) % Lymph % (Auto) 5.0 L (16.0-40.0) % Irion % (Auto) 3.3 (0.0-15.0) % Eos % (Auto) 0.0 (0.0-7.0) % Baso % (Auto) 0.0 (0.0-1.5) % Neut # (Auto) 9.3 H (1.4-5.7) K/uL Lymph # (Auto) 0.5 L (0.6-2.4) K/uL Irion # (Auto) 0.3 (0.0-0.8) K/uL Eos # (Auto) 0.0 (0.0-0.7) K/uL Baso # (Auto) 0.0 (0.0-0.1) K/uL Nucleated RBC % 0.0 /100WBC Nucleated RBCs # 0 K/uL Sodium 140 (136-145) mmol/L Potassium 5.3 H (3.5-5.1) mmol/L Chloride 111 H (98-107) mmol/L Carbon Dioxide 14.5 L (21.0-32.0) mmol/L BUN 77 H (7.0-18.0) mg/dL Creatinine 2.4 H (0.6-1.0) mg/dL Est Cr Clr Drug Dosing 14.86 mL/min Estimated GFR (MDRD) 19.1 ml/min Glucose 157 H (74-106) mg/dL POC Glucose 198 H (70-99) mg/dL Calcium 7.9 L (8.5-10.1) mg/dL Total Bilirubin 0.9 (0.2-1.0) mg/dL AST 32 (15-37) IU/L ALT 49 (14-63) IU/L Alkaline Phosphatase 56 (46-116) U/L Total Protein 5.4 L (6.4-8.2) g/dL Albumin 2.5 L (3.4-5.0) g/dL Globulin 2.9 (2.6-4.0) g/dL Albumin/Globulin Ratio 0.9 (0.9-1.6) Result Diagrams: 04/14/21 07:10 04/14/21 07:10 Sepsis Event Note - Evaluation Sepsis Screening Result: Possible Sepsis Risk - Focused Exam Vital Signs: Vital Signs Temp Pulse Pulse Resp BP BP Pulse Ox 04/14/21 11:51 35.6 C L 74 22 H 101/44 L 90 L 04/14/21 08:46 76 150/68 H 04/14/21 08:42 150/68 H 04/14/21 07:55 35.6 C L 76 20 150/68 H 91 L 04/14/21 05:38 36.0 C L 66 16 119/54 L 96 - Problem List & Annotations (1) Acute respiratory failure due to COVID-19 SNOMED Code(s): 069762410 Code(s): U07.1 - COVID-19; J96.00 - ACUTE RESPIRATORY FAILURE, UNSP W HYPOXIA OR HYPERCAPNIA Status: Acute Current Visit: No (2) Pneumonia due to COVID-19 virus SNOMED Code(s): 841069280967153549 Code(s): U07.1 - COVID-19; J12.82 - PNEUMONIA DUE TO CORONAVIRUS DISEASE 2019 Status: Acute Current Visit: No - Problem List Review Problem List Initiated/Reviewed/Updated: Yes - My Orders Last 24 Hours: My Active Orders 04/13/21 14:15 Nystatin [Nystop] 1 gm TOP BID 04/15/21 05:11 CBC WITH AUTO DIFF [HEME] AM COMPREHENSIVE METABOLIC PN,CMP [CHEM] AM 04/16/21 05:11 CBC WITH AUTO DIFF [HEME] AM COMPREHENSIVE METABOLIC PN,CMP [CHEM] AM 04/17/21 05:11 CBC WITH AUTO DIFF [HEME] AM COMPREHENSIVE METABOLIC PN,CMP [CHEM] AM - Plan Plan:: 85 yo female admitted with COVID with hypoxia hypoxia: on 2 L NC COVID: continue desxamethason, barcitinib, and finished five days of remdesivir DM-ADA diabetic diet is in place and Insulin sliding scale/NovoLog STEFANI/hypernatremia/hyperchloremia: Continue to monitor, lovenox for DVT prophylaxis
[2021-04-14] MEDS: Losartan 50 MG Tab PO SCH (21:32)
[2021-04-14] MEDS: atorvaSTATin 20 MG Tab PO SCH (21:32)
[2021-04-15] MEDS: Albuterol/Ipratropium 3.0-0.5 MG/3 ML Neb Soln NEB SCH ×5 (01:27→23:25)
[2021-04-15] MEDS: Insulin Aspart 100 Units/ML 3 ML Pen SUBCUT SCH ×4 (09:25→20:23)
[2021-04-15] MEDS: Dexamethasone 4 MG Tab PO SCH (09:26)
[2021-04-15] MEDS: Metoprolol Succinate 50 MG Tab.ER PO SCH (09:26)
[2021-04-15] MEDS: Enoxaparin 30 MG/0.3 ML Syringe SUBCUT SCH (09:28)
[2021-04-15] MEDS: Pantoprazole 40 MG Tab.CR PO SCH (09:28)
[2021-04-15] MEDS: amLODIPine 5 MG Tab PO SCH (09:28)
[2021-04-15] MEDS: Nystatin Topical Powder 15 GM Bottle TOP SCH ×2 (10:51→21:37)
--- NOTE | 2021-04-15 17:03 | PCM.PN ---
- General Info Date of Service: 04/15/21 - Review of Systems Systems Review Comment:: nonverbal - Patient Data Vitals - Most Recent: Last Vital Signs Temp 36.0 C L 04/15/21 16:00 Pulse 78 04/15/21 16:00 Resp 20 04/15/21 16:00 BP 115/61 04/15/21 16:00 Pulse Ox 94 L 04/15/21 16:00 Weight - Most Recent: 88.5 kg I&O - Last 24 Hours: Intake & Output 04/15/21 04/15/21 04/15/21 06:59 14:59 22:59 Intake Total 800 Balance 800 Lab Results Last 24 Hours: Laboratory Results - last 24 hr 04/14/21 04/14/21 04/15/21 Range/Units 18:23 21:26 05:04 POC Glucose 168 H 236 H 130 H (70-99) mg/dL 04/15/21 Range/Units 16:28 POC Glucose 210 H (70-99) mg/dL Med Orders - Current: Current Medications Albuterol/Ipratropium (Albuterol/Ipratropium 3.0-0.5 Mg/3 Ml Neb Soln) 3 ml NEB Q6HRRT [facility] Last Admin: 04/15/21 13:00 Dose: 3 ml Documented by: Amlodipine Besylate (Amlodipine 5 Mg Tab) 5 mg PO DAILY [facility] Last Admin: 04/15/21 09:28 Dose: 5 mg Documented by: Atorvastatin Calcium (Atorvastatin 20 Mg Tab) 20 mg PO BEDTIME [facility] Last Admin: 04/14/21 21:32 Dose: 20 mg Documented by: Baricitinib (Baricitinib 2 Mg Tab) 1 mg PO Q24H [facility] Last Admin: 04/14/21 19:33 Dose: 1 mg Documented by: Dexamethasone (Dexamethasone 4 Mg Tab) 6 mg PO DAILY [facility] Last Admin: 04/15/21 09:26 Dose: 6 mg Documented by: Dextrose/Water (50% Dextrose In Water 50 Ml Syringe) 50 ml IVPUSH ASDIRECTED PRN PRN Reason: Hypoglycemia Enoxaparin Sodium (Enoxaparin 30 Mg/0.3 Ml Syringe) 30 mg SUBCUT Q24H [facility] Last Admin: 04/15/21 09:28 Dose: 30 mg Documented by: Glucagon (Glucagon,Human Recombinant 1 Mg Vial) 1 mg IM ASDIRECTED PRN PRN Reason: Hypoglycemia Insulin Aspart (Insulin Aspart 100 Units/Ml 3 Ml Pen) 0 unit SUBCUT QIDACANDBED [facility]; Protocol Last Admin: 04/15/21 12:56 Dose: 1 unit Documented by: Losartan Potassium (Losartan 50 Mg Tab) 50 mg PO BEDTIME [facility] Last Admin: 04/14/21 21:32 Dose: 50 mg Documented by: Metoprolol Succinate (Metoprolol Succinate 50 Mg Tab.Er) 50 mg PO DAILY [facility] Last Admin: 04/15/21 09:26 Dose: 50 mg Documented by: Nystatin (Nystatin Topical Powder 15 Gm Bottle) 1 gm TOP BID [facility] Last Admin: 04/15/21 10:51 Dose: 1 applic Documented by: Pantoprazole Sodium (Pantoprazole 40 Mg Tab.Cr) 40 mg PO DAILY [facility] Last Admin: 04/15/21 09:28 Dose: 40 mg Documented by: Discontinued Medications Albuterol/Ipratropium (Albuterol/Ipratropium 3.0-0.5 Mg/3 Ml Neb Soln) 3 ml NEB Q4HRRT [facility] Last Admin: 04/12/21 13:49 Dose: 3 ml Documented by: Remdesivir 200 mg/ Sodium (Chloride) 250 mls @ 250 mls/hr IV ONETIME ONE Stop: 04/08/21 15:14 Last Admin: 04/08/21 14:51 Dose: 250 mls/hr Documented by: Remdesivir 100 mg/ Sodium (Chloride) 100 mls @ 100 mls/hr IV Q24H [facility] Stop: 04/12/21 14:59 Last Admin: 04/12/21 14:25 Dose: 100 mls/hr Documented by: Sodium Chloride (Sodium Chloride 0.45%) 1,000 mls @ 125 mls/hr IV ASDIRECTED [facility] Last Infusion: 04/09/21 13:57 Dose: 0 mls/hr Documented by: Dextrose/Water (Dextrose 5% In Water) 500 mls @ 50 mls/hr IV ASDIRECTED [facility] Stop: 04/11/21 20:14 Sodium Chloride (Sodium Chloride 0.45%) 1,000 mls @ 100 mls/hr IV ASDIRECTED [facility] Stop: 04/13/21 14:00 Last Admin: 04/13/21 09:59 Dose: 100 mls/hr Documented by: - Exam General: No Acute Distress Lungs: Clear to Auscultation, Normal Respiratory Effort Cardiovascular: Regular Rate, Regular Rhythm GI/Abdominal Exam: Soft, Non-Tender, No Distention Extremities: Non-Tender, No Pedal Edema Skin: Warm, Dry, Intact Neurological: No New Focal Deficit - Patient Data Lab Results Last 24 hrs: Laboratory Results - last 24 hr 04/14/21 04/14/21 04/15/21 Range/Units 18:23 21:26 05:04 POC Glucose 168 H 236 H 130 H (70-99) mg/dL 04/15/21 Range/Units 16:28 POC Glucose 210 H (70-99) mg/dL Result Diagrams: 04/14/21 07:10 04/14/21 07:10 Sepsis Event Note - Evaluation Sepsis Screening Result: Possible Sepsis Risk - Focused Exam Vital Signs: Vital Signs Temp Pulse Pulse Resp BP BP Pulse Ox 04/15/21 16:00 36.0 C L 78 20 115/61 94 L 04/15/21 12:00 35.9 C L 82 20 138/73 90 L 04/15/21 09:28 130/50 L 04/15/21 09:26 80 130/50 L 04/15/21 08:00 35.6 C L 75 20 137/77 93 L - Problem List & Annotations (1) Acute respiratory failure due to COVID-19 SNOMED Code(s): 639878655 Code(s): U07.1 - COVID-19; J96.00 - ACUTE RESPIRATORY FAILURE, UNSP W HYPOXIA OR HYPERCAPNIA Status: Acute Current Visit: No (2) Pneumonia due to COVID-19 virus SNOMED Code(s): 762023942425445524 Code(s): U07.1 - COVID-19; J12.82 - PNEUMONIA DUE TO CORONAVIRUS DISEASE 2019 Status: Acute Current Visit: No - Problem List Review Problem List Initiated/Reviewed/Updated: Yes - My Orders Last 24 Hours: My Active Orders 04/15/21 16:36 CBC WITH AUTO DIFF [HEME] AM COMPREHENSIVE METABOLIC PN,CMP [CHEM] AM 04/16/21 05:11 CBC WITH AUTO DIFF [HEME] AM COMPREHENSIVE METABOLIC PN,CMP [CHEM] AM 04/17/21 05:11 CBC WITH AUTO DIFF [HEME] AM COMPREHENSIVE METABOLIC PN,CMP [CHEM] AM - Plan Plan:: 85 yo female admitted with COVID with hypoxia hypoxia: on 2 L NC COVID: continue desxamethason, barcitinib, and finished remdesivir DM-ADA diabetic diet, Novolog ssi STEFANI/hypernatremia/hyperchloremia: Continue to monitor, lovenox for DVT prophylaxis
[2021-04-15 17:27] LABS: CARBON DIOXIDE,CO2 15.7 mmol/L (21.0-32.0); POTASSIUM,K 5.8 mmol/L (3.5-5.1)
[2021-04-15] MEDS: atorvaSTATin 20 MG Tab PO SCH (20:24)
[2021-04-15] MEDS: Losartan 50 MG Tab PO SCH (20:24)
[2021-04-16] MEDS: Albuterol/Ipratropium 3.0-0.5 MG/3 ML Neb Soln NEB SCH ×3 (05:55→17:33)
--- NOTE | 2021-04-16 07:12 | CR ---
Indication: Decreased O2 and diminished left lower lobe lung sounds Comparison: None available. Technique: Single AP view chest Findings: There is hyperinflation and chronic interstitial change. There are airspace opacities seen throughout the bilateral hemithoraces left greater than right commensurate with developing multifocal infiltrates. The cardiac silhouette is mildly prominent with a tortuous thoracic aorta. The bony thorax is grossly intact. Impression: Hyperinflation and chronic interstitial changes with dense airspace opacification of the left greater than right lung bases commensurate with developing multifocal infiltrates. Dictated by Roger Ac MD @ 04/16/2021 7:10:02 AM (Electronically Signed)
[2021-04-16 07:21] LABS: CARBON DIOXIDE,CO2 18.1 mmol/L (21.0-32.0)
[2021-04-16] MEDS: Insulin Aspart 100 Units/ML 3 ML Pen SUBCUT SCH ×4 (08:56→21:30)
[2021-04-16] MEDS: Enoxaparin 30 MG/0.3 ML Syringe SUBCUT SCH (08:58)
[2021-04-16] MEDS: Dexamethasone 4 MG Tab PO SCH (08:58)
[2021-04-16] MEDS: Pantoprazole 40 MG Tab.CR PO SCH (08:59)
[2021-04-16] MEDS: Metoprolol Succinate 50 MG Tab.ER PO SCH ×2 (10:20→13:25)
[2021-04-16] MEDS: amLODIPine 5 MG Tab PO SCH ×2 (10:20→13:24)
[2021-04-16] MEDS: Nystatin Topical Powder 15 GM Bottle TOP SCH ×2 (10:55→21:30)
--- NOTE | 2021-04-16 13:37 | PCM.PN ---
- General Info Date of Service: 04/16/21 - Review of Systems Systems Review Comment:: denies any pain, sticks her thumb up - Patient Data Vitals - Most Recent: Last Vital Signs Temp 35.7 C L 04/16/21 12:00 Pulse 100 04/16/21 13:25 Resp 20 04/16/21 12:00 BP 93/40 L 04/16/21 13:25 Pulse Ox 92 L 04/16/21 12:00 Weight - Most Recent: 88.5 kg I&O - Last 24 Hours: Intake & Output 04/15/21 04/16/21 04/16/21 22:59 06:59 14:59 Intake Total 800 750 Balance 800 750 Lab Results Last 24 Hours: Laboratory Results - last 24 hr 04/15/21 04/15/21 04/15/21 Range/Units 16:28 16:36 16:36 WBC 18.05 H (4.0-11.0) K/uL RBC 5.23 (4.30-5.90) M/uL Hgb 15.4 (12.0-16.0) g/dL Hct 46.5 H (36.0-46.0) % MCV 88.9 (80.0-98.0) fL MCH 29.4 (27.0-32.0) pg MCHC 33.1 (31.0-37.0) g/dL RDW Std Deviation 51.4 (28.0-62.0) fl RDW Coeff of Win 16 H (11.0-15.0) % Plt Count 82 L (150-400) K/uL MPV 11.60 (7.40-12.00) fL Neut % (Auto) (48.0-80.0) % Lymph % (Auto) (16.0-40.0) % Twiggs % (Auto) (0.0-15.0) % Eos % (Auto) (0.0-7.0) % Baso % (Auto) (0.0-1.5) % Neut # (Auto) (1.4-5.7) K/uL Lymph # (Auto) (0.6-2.4) K/uL Tw[place]gs # (Auto) (0.0-0.8) K/uL Eos # (Auto) (0.0-0.7) K/uL Baso # (Auto) (0.0-0.1) K/uL Add Manual Diff YES Neutrophils % (Manual) 96 H (48.0-80.0) % Lymphocytes % (Manual) 3 L (16.0-40.0) % Monocytes % (Manual) 1 (0.0-15.0) % Nucleated RBC % 0.0 /100WBC Absolute Seg Neuts 17.3 H (1.4-5.7) Lymphocytes # (Manual) 0.5 L (0.6-2.4) Monocytes # (Manual) 0.2 (0.0-0.8) Nucleated RBCs # 0 K/uL Hypersegmented Neuts MODERATE Platelet Estimate DECREASED Sodium 139 (136-145) mmol/L Potassium 5.8 H (3.5-5.1) mmol/L Chloride 108 H (98-107) mmol/L Carbon Dioxide 15.7 L (21.0-32.0) mmol/L BUN 80 H (7.0-18.0) mg/dL Creatinine 2.4 H (0.6-1.0) mg/dL Est Cr Clr Drug Dosing 14.86 mL/min Estimated GFR (MDRD) 19.1 ml/min Glucose 209 H (74-106) mg/dL POC Glucose 210 H (70-99) mg/dL Calcium 8.3 L (8.5-10.1) mg/dL Total Bilirubin 1.1 H (0.2-1.0) mg/dL AST 31 (15-37) IU/L ALT 55 (14-63) IU/L Alkaline Phosphatase 61 (46-116) U/L Total Protein 5.9 L (6.4-8.2) g/dL Albumin 2.6 L (3.4-5.0) g/dL Globulin 3.3 (2.6-4.0) g/dL Albumin/Globulin Ratio 0.8 L (0.9-1.6) 04/15/21 04/16/21 04/16/21 Range/Units 20:21 05:48 06:28 WBC 21.03 H (4.0-11.0) K/uL RBC 5.39 (4.30-5.90) M/uL Hgb 15.8 (12.0-16.0) g/dL Hct 47.9 H (36.0-46.0) % MCV 88.9 (80.0-98.0) fL MCH 29.3 (27.0-32.0) pg MCHC 33.0 (31.0-37.0) g/dL RDW Std Deviation 51.9 (28.0-62.0) fl RDW Coeff of Win 16 H (11.0-15.0) % Plt Count 130 L (150-400) K/uL MPV 12.10 H (7.40-12.00) fL Neut % (Auto) 95.1 H (48.0-80.0) % Lymph % (Auto) 2.8 L (16.0-40.0) % Twiggs % (Auto) 2.1 (0.0-15.0) % Eos % (Auto) 0.0 (0.0-7.0) % Baso % (Auto) 0.0 (0.0-1.5) % Neut # (Auto) 20.0 H (1.4-5.7) K/uL Lymph # (Auto) 0.6 (0.6-2.4) K/uL Twiggs # (Auto) 0.4 (0.0-0.8) K/uL Eos # (Auto) 0.0 (0.0-0.7) K/uL Baso # (Auto) 0.0 (0.0-0.1) K/uL Add Manual Diff Neutrophils % (Manual) (48.0-80.0) % Lymphocytes % (Manual) (16.0-40.0) % Monocytes % (Manual) (0.0-15.0) % Nucleated RBC % 0.0 /100WBC Absolute Seg Neuts (1.4-5.7) Lymphocytes # (Manual) (0.6-2.4) Monocytes # (Manual) (0.0-0.8) Nucleated RBCs # 0 K/uL Hypersegmented Neuts Platelet Estimate Sodium (136-145) mmol/L Potassium (3.5-5.1) mmol/L Chloride (98-107) mmol/L Carbon Dioxide (21.0-32.0) mmol/L BUN (7.0-18.0) mg/dL Creatinine (0.6-1.0) mg/dL Est Cr Clr Drug Dosing mL/min Estimated GFR (MDRD) ml/min Glucose (74-106) mg/dL POC Glucose 218 H 146 H (70-99) mg/dL Calcium (8.5-10.1) mg/dL Total Bilirubin (0.2-1.0) mg/dL AST (15-37) IU/L ALT (14-63) IU/L Alkaline Phosphatase (46-116) U/L Total Protein (6.4-8.2) g/dL Albumin (3.4-5.0) g/dL Globulin (2.6-4.0) g/dL Albumin/Globulin Ratio (0.9-1.6) 04/16/21 04/16/21 Range/Units 06:28 12:18 WBC (4.0-11.0) K/uL RBC (4.30-5.90) M/uL Hgb (12.0-16.0) g/dL Hct (36.0-46.0) % MCV (80.0-98.0) fL MCH (27.0-32.0) pg MCHC (31.0-37.0) g/dL RDW Std Deviation (28.0-62.0) fl RDW Coeff of Win (11.0-15.0) % Plt Count (150-400) K/uL MPV (7.40-12.00) fL Neut % (Auto) (48.0-80.0) % Lymph % (Auto) (16.0-40.0) % Twiggs % (Auto) (0.0-15.0) % Eos % (Auto) (0.0-7.0) % Baso % (Auto) (0.0-1.5) % Neut # (Auto) (1.4-5.7) K/uL Lymph # (Auto) (0.6-2.4) K/uL Twiggs # (Auto) (0.0-0.8) K/uL Eos # (Auto) (0.0-0.7) K/uL Baso # (Auto) (0.0-0.1) K/uL Add Manual Diff Neutrophils % (Manual) (48.0-80.0) % Lymphocytes % (Manual) (16.0-40.0) % Monocytes % (Manual) (0.0-15.0) % Nucleated RBC % /100WBC Absolute Seg Neuts (1.4-5.7) Lymphocytes # (Manual) (0.6-2.4) Monocytes # (Manual) (0.0-0.8) Nucleated RBCs # K/uL Hypersegmented Neuts Platelet Estimate Sodium 141 (136-145) mmol/L Potassium 5.0 (3.5-5.1) mmol/L Chloride 107 (98-107) mmol/L Carbon Dioxide 18.1 L (21.0-32.0) mmol/L BUN 85 H (7.0-18.0) mg/dL Creatinine 3.1 H (0.6-1.0) mg/dL Est Cr Clr Drug Dosing 11.50 mL/min Estimated GFR (MDRD) 14.2 ml/min Glucose 169 H (74-106) mg/dL POC Glucose 160 H (70-99) mg/dL Calcium 8.3 L (8.5-10.1) mg/dL Total Bilirubin 1.3 H (0.2-1.0) mg/dL AST 18 (15-37) IU/L ALT 55 (14-63) IU/L Alkaline Phosphatase 62 (46-116) U/L Total Protein 6.9 (6.4-8.2) g/dL Albumin 2.7 L (3.4-5.0) g/dL Globulin 4.2 H (2.6-4.0) g/dL Albumin/Globulin Ratio 0.6 L (0.9-1.6) Med Orders - Current: Current Medications Albuterol/Ipratropium (Albuterol/Ipratropium 3.0-0.5 Mg/3 Ml Neb Soln) 3 ml NEB Q6HRRT [facility] Last Admin: 04/16/21 12:32 Dose: 3 ml Documented by: Amlodipine Besylate (Amlodipine 5 Mg Tab) 5 mg PO DAILY [facility] Last Admin: 04/16/21 13:24 Dose: Not Given Documented by: Atorvastatin Calcium (Atorvastatin 20 Mg Tab) 20 mg PO BEDTIME [facility] Last Admin: 04/15/21 20:24 Dose: 20 mg Documented by: Baricitinib (Baricitinib 2 Mg Tab) 1 mg PO Q24H [facility] Last Admin: 04/15/21 17:53 Dose: 1 mg Documented by: Dexamethasone (Dexamethasone 4 Mg Tab) 6 mg PO DAILY [facility] Last Admin: 04/16/21 08:58 Dose: 6 mg Documented by: Dextrose/Water (50% Dextrose In Water 50 Ml Syringe) 50 ml IVPUSH ASDIRECTED PRN PRN Reason: Hypoglycemia Enoxaparin Sodium (Enoxaparin 30 Mg/0.3 Ml Syringe) 30 mg SUBCUT Q24H [facility] Last Admin: 04/16/21 08:58 Dose: 30 mg Documented by: Glucagon (Glucagon,Human Recombinant 1 Mg Vial) 1 mg IM ASDIRECTED PRN PRN Reason: Hypoglycemia Insulin Aspart (Insulin Aspart 100 Units/Ml 3 Ml Pen) 0 unit SUBCUT QIDACANDBED [facility]; Protocol Last Admin: 04/16/21 12:22 Dose: 1 unit Documented by: Losartan Potassium (Losartan 50 Mg Tab) 50 mg PO BEDTIME [facility] Last Admin: 04/15/21 20:24 Dose: 50 mg Documented by: Metoprolol Succinate (Metoprolol Succinate 50 Mg Tab.Er) 50 mg PO DAILY [facility] Last Admin: 04/16/21 13:25 Dose: Not Given Documented by: Nystatin (Nystatin Topical Powder 15 Gm Bottle) 1 gm TOP BID [facility] Last Admin: 04/16/21 10:55 Dose: 1 applic Documented by: Pantoprazole Sodium (Pantoprazole 40 Mg Tab.Cr) 40 mg PO DAILY [facility] Last Admin: 04/16/21 08:59 Dose: 40 mg Documented by: Discontinued Medications Albuterol/Ipratropium (Albuterol/Ipratropium 3.0-0.5 Mg/3 Ml Neb Soln) 3 ml NEB Q4HRRT [facility] Last Admin: 04/12/21 13:49 Dose: 3 ml Documented by: Remdesivir 200 mg/ Sodium (Chloride) 250 mls @ 250 mls/hr IV ONETIME ONE Stop: 04/08/21 15:14 Last Admin: 04/08/21 14:51 Dose: 250 mls/hr Documented by: Remdesivir 100 mg/ Sodium (Chloride) 100 mls @ 100 mls/hr IV Q24H [facility] Stop: 04/12/21 14:59 Last Admin: 04/12/21 14:25 Dose: 100 mls/hr Documented by: Sodium Chloride (Sodium Chloride 0.45%) 1,000 mls @ 125 mls/hr IV ASDIRECTED [facility] Last Infusion: 04/09/21 13:57 Dose: 0 mls/hr Documented by: Dextrose/Water (Dextrose 5% In Water) 500 mls @ 50 mls/hr IV ASDIRECTED [facility] Stop: 04/11/21 20:14 Sodium Chloride (Sodium Chloride 0.45%) 1,000 mls @ 100 mls/hr IV ASDIRECTED [facility] Stop: 04/13/21 14:00 Last Admin: 04/13/21 09:59 Dose: 100 mls/hr Documented by: - Exam Lungs: Normal Respiratory Effort, Rhonchi Cardiovascular: Regular Rate, Regular Rhythm GI/Abdominal Exam: Soft, Non-Tender, No Distention Extremities: Non-Tender, No Pedal Edema Skin: Warm, Dry, Intact Neurological: No New Focal Deficit - Patient Data Lab Results Last 24 hrs: Laboratory Results - last 24 hr 04/15/21 04/15/21 04/15/21 Range/Units 16:28 16:36 16:36 WBC 18.05 H (4.0-11.0) K/uL RBC 5.23 (4.30-5.90) M/uL Hgb 15.4 (12.0-16.0) g/dL Hct 46.5 H (36.0-46.0) % MCV 88.9 (80.0-98.0) fL MCH 29.4 (27.0-32.0) pg MCHC 33.1 (31.0-37.0) g/dL RDW Std Deviation 51.4 (28.0-62.0) fl RDW Coeff of Win 16 H (11.0-15.0) % Plt Count 82 L (150-400) K/uL MPV 11.60 (7.40-12.00) fL Neut % (Auto) (48.0-80.0) % Lymph % (Auto) (16.0-40.0) % Twiggs % (Auto) (0.0-15.0) % Eos % (Auto) (0.0-7.0) % Baso % (Auto) (0.0-1.5) % Neut # (Auto) (1.4-5.7) K/uL Lymph # (Auto) (0.6-2.4) K/uL Twiggs # (Auto) (0.0-0.8) K/uL Eos # (Auto) (0.0-0.7) K/uL Baso # (Auto) (0.0-0.1) K/uL Add Manual Diff YES Neutrophils % (Manual) 96 H (48.0-80.0) % Lymphocytes % (Manual) 3 L (16.0-40.0) % Monocytes % (Manual) 1 (0.0-15.0) % Nucleated RBC % 0.0 /100WBC Absolute Seg Neuts 17.3 H (1.4-5.7) Lymphocytes # (Manual) 0.5 L (0.6-2.4) Monocytes # (Manual) 0.2 (0.0-0.8) Nucleated RBCs # 0 K/uL Hypersegmented Neuts MODERATE Platelet Estimate DECREASED Sodium 139 (136-145) mmol/L Potassium 5.8 H (3.5-5.1) mmol/L Chloride 108 H (98-107) mmol/L Carbon Dioxide 15.7 L (21.0-32.0) mmol/L BUN 80 H (7.0-18.0) mg/dL Creatinine 2.4 H (0.6-1.0) mg/dL Est Cr Clr Drug Dosing 14.86 mL/min Estimated GFR (MDRD) 19.1 ml/min Glucose 209 H (74-106) mg/dL POC Glucose 210 H (70-99) mg/dL Calcium 8.3 L (8.5-10.1) mg/dL Total Bilirubin 1.1 H (0.2-1.0) mg/dL AST 31 (15-37) IU/L ALT 55 (14-63) IU/L Alkaline Phosphatase 61 (46-116) U/L Total Protein 5.9 L (6.4-8.2) g/dL Albumin 2.6 L (3.4-5.0) g/dL Globulin 3.3 (2.6-4.0) g/dL Albumin/Globulin Ratio 0.8 L (0.9-1.6) 04/15/21 04/16/21 04/16/21 Range/Units 20:21 05:48 06:28 WBC 21.03 H (4.0-11.0) K/uL RBC 5.39 (4.30-5.90) M/uL Hgb 15.8 (12.0-16.0) g/dL Hct 47.9 H (36.0-46.0) % MCV 88.9 (80.0-98.0) fL MCH 29.3 (27.0-32.0) pg MCHC 33.0 (31.0-37.0) g/dL RDW Std Deviation 51.9 (28.0-62.0) fl RDW Coeff of Win 16 H (11.0-15.0) % Plt Count 130 L (150-400) K/uL MPV 12.10 H (7.40-12.00) fL Neut % (Auto) 95.1 H (48.0-80.0) % Lymph % (Auto) 2.8 L (16.0-40.0) % Twiggs % (Auto) 2.1 (0.0-15.0) % Eos % (Auto) 0.0 (0.0-7.0) % Baso % (Auto) 0.0 (0.0-1.5) % Neut # (Auto) 20.0 H (1.4-5.7) K/uL Lymph # (Auto) 0.6 (0.6-2.4) K/uL Tw[place]gs # (Auto) 0.4 (0.0-0.8) K/uL Eos # (Auto) 0.0 (0.0-0.7) K/uL Baso # (Auto) 0.0 (0.0-0.1) K/uL Add Manual Diff Neutrophils % (Manual) (48.0-80.0) % Lymphocytes % (Manual) (16.0-40.0) % Monocytes % (Manual) (0.0-15.0) % Nucleated RBC % 0.0 /100WBC Absolute Seg Neuts (1.4-5.7) Lymphocytes # (Manual) (0.6-2.4) Monocytes # (Manual) (0.0-0.8) Nucleated RBCs # 0 K/uL Hypersegmented Neuts Platelet Estimate Sodium (136-145) mmol/L Potassium (3.5-5.1) mmol/L Chloride (98-107) mmol/L Carbon Dioxide (21.0-32.0) mmol/L BUN (7.0-18.0) mg/dL Creatinine (0.6-1.0) mg/dL Est Cr Clr Drug Dosing mL/min Estimated GFR (MDRD) ml/min Glucose (74-106) mg/dL POC Glucose 218 H 146 H (70-99) mg/dL Calcium (8.5-10.1) mg/dL Total Bilirubin (0.2-1.0) mg/dL AST (15-37) IU/L ALT (14-63) IU/L Alkaline Phosphatase (46-116) U/L Total Protein (6.4-8.2) g/dL Albumin (3.4-5.0) g/dL Globulin (2.6-4.0) g/dL Albumin/Globulin Ratio (0.9-1.6) 04/16/21 04/16/21 Range/Units 06:28 12:18 WBC (4.0-11.0) K/uL RBC (4.30-5.90) M/uL Hgb (12.0-16.0) g/dL Hct (36.0-46.0) % MCV (80.0-98.0) fL MCH (27.0-32.0) pg MCHC (31.0-37.0) g/dL RDW Std Deviation (28.0-62.0) fl RDW Coeff of Win (11.0-15.0) % Plt Count (150-400) K/uL MPV (7.40-12.00) fL Neut % (Auto) (48.0-80.0) % Lymph % (Auto) (16.0-40.0) % Tw[place]gs % (Auto) (0.0-15.0) % Eos % (Auto) (0.0-7.0) % Baso % (Auto) (0.0-1.5) % Neut # (Auto) (1.4-5.7) K/uL Lymph # (Auto) (0.6-2.4) K/uL Twiggs # (Auto) (0.0-0.8) K/uL Eos # (Auto) (0.0-0.7) K/uL Baso # (Auto) (0.0-0.1) K/uL Add Manual Diff Neutrophils % (Manual) (48.0-80.0) % Lymphocytes % (Manual) (16.0-40.0) % Monocytes % (Manual) (0.0-15.0) % Nucleated RBC % /100WBC Absolute Seg Neuts (1.4-5.7) Lymphocytes # (Manual) (0.6-2.4) Monocytes # (Manual) (0.0-0.8) Nucleated RBCs # K/uL Hypersegmented Neuts Platelet Estimate Sodium 141 (136-145) mmol/L Potassium 5.0 (3.5-5.1) mmol/L Chloride 107 (98-107) mmol/L Carbon Dioxide 18.1 L (21.0-32.0) mmol/L BUN 85 H (7.0-18.0) mg/dL Creatinine 3.1 H (0.6-1.0) mg/dL Est Cr Clr Drug Dosing 11.50 mL/min Estimated GFR (MDRD) 14.2 ml/min Glucose 169 H (74-106) mg/dL POC Glucose 160 H (70-99) mg/dL Calcium 8.3 L (8.5-10.1) mg/dL Total Bilirubin 1.3 H (0.2-1.0) mg/dL AST 18 (15-37) IU/L ALT 55 (14-63) IU/L Alkaline Phosphatase 62 (46-116) U/L Total Protein 6.9 (6.4-8.2) g/dL Albumin 2.7 L (3.4-5.0) g/dL Globulin 4.2 H (2.6-4.0) g/dL Albumin/Globulin Ratio 0.6 L (0.9-1.6) Result Diagrams: 04/16/21 06:28 04/16/21 06:28 Sepsis Event Note - Evaluation Sepsis Screening Result: Possible Sepsis Risk - Focused Exam Vital Signs: Vital Signs Temp Pulse Pulse Resp BP BP BP 04/16/21 13:25 100 93/40 L 04/16/21 13:24 93/40 L 04/16/21 12:00 35.7 C L 98 20 97/52 L 04/16/21 08:00 36.4 C 100 22 H 93/40 L 04/16/21 04:00 36.4 C 99 24 H 113/51 L Pulse Ox 04/16/21 13:25 04/16/21 13:24 04/16/21 12:00 92 L 04/16/21 08:00 90 L 04/16/21 04:00 89 L - Problem List & Annotations (1) Acute respiratory failure due to COVID-19 SNOMED Code(s): 942547673 Code(s): U07.1 - COVID-19; J96.00 - ACUTE RESPIRATORY FAILURE, UNSP W HYPOXIA OR HYPERCAPNIA Status: Acute Current Visit: No (2) Pneumonia due to COVID-19 virus SNOMED Code(s): 098204813123659950 Code(s): U07.1 - COVID-19; J12.82 - PNEUMONIA DUE TO CORONAVIRUS DISEASE 2019 Status: Acute Current Visit: No - Problem List Review Problem List Initiated/Reviewed/Updated: Yes - My Orders Last 24 Hours: My Active Orders 04/16/21 06:08 RT Oxygen High Humidity High Flow [RESPCARE] Stat 04/16/21 07:00 RT BiPAP/CPAP [RC] ASDIRECTED 04/16/21 13:45 Cefepime [Maxipime in D5W 1 GM/50 ML] 1 gm Premix Bag 1 bag IV Q8H Levofloxacin/Dextrose 5%-Water [Levaquin in D5W 750 MG/150 ML] 750 mg Premix Bag 1 bag IV Q24H Pharmacy to Dose - Vancomycin 1 dose .XX ASDIRECTED 04/17/21 05:11 CBC WITH AUTO DIFF [HEME] AM COMPREHENSIVE METABOLIC PN,CMP [CHEM] AM - Plan Plan:: 85 yo female admitted with COVID with hypoxia hypoxia: developed worsening hypoxia and is now requring CPAP COVID: continue dexamethasone, barcitinib, and finished remdesivir increasing white count, will start broad spectrum antibiotics vancomycin, cefepime and levaquin DM-ADA diabetic diet, Novolog ssi STEFANI/hypernatremia/hyperchloremia: creatinine increasing to 3.1 lovenox for DVT prophylaxis Spoke with daughter regarding poor prognosis, She will talk with family reg arding goals of care.
[2021-04-16] MEDS ORDERED: Cefepime 1 GM in Premix Bag 1 BAG IV SCH (13:45)
[2021-04-16] MEDS: Cefepime 2 GM in Premix Bag 1 BAG IV SCH (14:14)
[2021-04-16] MEDS ORDERED: Levofloxacin/Dextrose 5%-Water 750 MG in Premix Bag 1 BAG IV ONE (14:30)
[2021-04-16] MEDS: atorvaSTATin 20 MG Tab PO SCH (21:30)
[2021-04-16] MEDS: Losartan 50 MG Tab PO SCH (21:30)
[2021-04-17] MEDS: Albuterol/Ipratropium 3.0-0.5 MG/3 ML Neb Soln NEB SCH ×3 (00:36→11:56)
[2021-04-17 07:16] LABS: CARBON DIOXIDE,CO2 13.7 mmol/L (21.0-32.0); POTASSIUM,K 6.5 mmol/L (3.5-5.1)
[2021-04-17] MEDS: Insulin Aspart 100 Units/ML 3 ML Pen SUBCUT SCH ×4 (08:32→20:49)
[2021-04-17] MEDS: Dexamethasone 4 MG Tab PO SCH (08:33)
[2021-04-17] MEDS: Pantoprazole 40 MG Tab.CR PO SCH (08:34)
[2021-04-17] MEDS: amLODIPine 5 MG Tab PO SCH (08:34)
[2021-04-17] MEDS: Metoprolol Succinate 50 MG Tab.ER PO SCH (08:34)
[2021-04-17] MEDS: Enoxaparin 30 MG/0.3 ML Syringe SUBCUT SCH (08:40)
[2021-04-17] MEDS: Nystatin Topical Powder 15 GM Bottle TOP SCH ×2 (08:42→20:48)
--- NOTE | 2021-04-17 12:21 | PCM.PN ---
- General Info Date of Service: 04/17/21 - Review of Systems Systems Review Comment:: nonverbal - Patient Data Vitals - Most Recent: Last Vital Signs Temp 36.7 C 04/17/21 11:00 Pulse 100 04/17/21 11:00 Resp 24 H 04/17/21 11:00 BP 115/61 04/17/21 11:00 Pulse Ox 97 04/17/21 11:00 Weight - Most Recent: 88.088 kg I&O - Last 24 Hours: Intake & Output 04/16/21 04/17/21 04/17/21 22:59 06:59 14:59 Intake Total 100 200 Balance 100 200 Lab Results Last 24 Hours: Laboratory Results - last 24 hr 04/16/21 04/16/21 04/16/21 Range/Units 12:18 17:54 21:34 WBC (4.0-11.0) K/uL RBC (4.30-5.90) M/uL Hgb (12.0-16.0) g/dL Hct (36.0-46.0) % MCV (80.0-98.0) fL MCH (27.0-32.0) pg MCHC (31.0-37.0) g/dL RDW Std Deviation (28.0-62.0) fl RDW Coeff of Win (11.0-15.0) % Plt Count (150-400) K/uL MPV (7.40-12.00) fL Add Manual Diff Neutrophils % (Manual) (48.0-80.0) % Band Neutrophils % % Lymphocytes % (Manual) (16.0-40.0) % Monocytes % (Manual) (0.0-15.0) % Nucleated RBC % /100WBC Absolute Seg Neuts (1.4-5.7) Band Neutrophils # Lymphocytes # (Manual) (0.6-2.4) Monocytes # (Manual) (0.0-0.8) Nucleated RBCs # K/uL Hypersegmented Neuts Platelet Estimate Sodium (136-145) mmol/L Potassium (3.5-5.1) mmol/L Chloride (98-107) mmol/L Carbon Dioxide (21.0-32.0) mmol/L BUN (7.0-18.0) mg/dL Creatinine (0.6-1.0) mg/dL Est Cr Clr Drug Dosing mL/min Estimated GFR (MDRD) ml/min Glucose (74-106) mg/dL POC Glucose 160 H 211 H 219 H (70-99) mg/dL Calcium (8.5-10.1) mg/dL Total Bilirubin (0.2-1.0) mg/dL AST (15-37) IU/L ALT (14-63) IU/L Alkaline Phosphatase (46-116) U/L Total Protein (6.4-8.2) g/dL Albumin (3.4-5.0) g/dL Globulin (2.6-4.0) g/dL Albumin/Globulin Ratio (0.9-1.6) 04/17/21 04/17/21 04/17/21 Range/Units 06:14 06:14 06:30 WBC 16.51 H (4.0-11.0) K/uL RBC 4.98 (4.30-5.90) M/uL Hgb 14.6 (12.0-16.0) g/dL Hct 44.0 (36.0-46.0) % MCV 88.4 (80.0-98.0) fL MCH 29.3 (27.0-32.0) pg MCHC 33.2 (31.0-37.0) g/dL RDW Std Deviation 51.5 (28.0-62.0) fl RDW Coeff of Win 16 H (11.0-15.0) % Plt Count 92 L (150-400) K/uL MPV 11.90 (7.40-12.00) fL Add Manual Diff YES Neutrophils % (Manual) 97 H (48.0-80.0) % Band Neutrophils % 1 % Lymphocytes % (Manual) 1 L (16.0-40.0) % Monocytes % (Manual) 1 (0.0-15.0) % Nucleated RBC % 0.0 /100WBC Absolute Seg Neuts 16.0 H (1.4-5.7) Band Neutrophils # 0.2 Lymphocytes # (Manual) 0.2 L (0.6-2.4) Monocytes # (Manual) 0.2 (0.0-0.8) Nucleated RBCs # 0 K/uL Hypersegmented Neuts MODERATE Platelet Estimate DECREASED Sodium 141 (136-145) mmol/L Potassium 6.5 H (3.5-5.1) mmol/L Chloride 111 H (98-107) mmol/L Carbon Dioxide 13.7 L (21.0-32.0) mmol/L BUN 136 H (7.0-18.0) mg/dL Creatinine 5.2 H (0.6-1.0) mg/dL Est Cr Clr Drug Dosing 6.86 mL/min Estimated GFR (MDRD) 7.8 ml/min Glucose 175 H (74-106) mg/dL POC Glucose 156 H (70-99) mg/dL Calcium 8.0 L (8.5-10.1) mg/dL Total Bilirubin 0.9 (0.2-1.0) mg/dL AST 68 H (15-37) IU/L ALT 76 H (14-63) IU/L Alkaline Phosphatase 61 (46-116) U/L Total Protein 6.0 L (6.4-8.2) g/dL Albumin 2.0 L (3.4-5.0) g/dL Globulin 4.0 (2.6-4.0) g/dL Albumin/Globulin Ratio 0.5 L (0.9-1.6) 04/17/21 Range/Units 11:15 WBC (4.0-11.0) K/uL RBC (4.30-5.90) M/uL Hgb (12.0-16.0) g/dL Hct (36.0-46.0) % MCV (80.0-98.0) fL MCH (27.0-32.0) pg MCHC (31.0-37.0) g/dL RDW Std Deviation (28.0-62.0) fl RDW Coeff of Win (11.0-15.0) % Plt Count (150-400) K/uL MPV (7.40-12.00) fL Add Manual Diff Neutrophils % (Manual) (48.0-80.0) % Band Neutrophils % % Lymphocytes % (Manual) (16.0-40.0) % Monocytes % (Manual) (0.0-15.0) % Nucleated RBC % /100WBC Absolute Seg Neuts (1.4-5.7) Band Neutrophils # Lymphocytes # (Manual) (0.6-2.4) Monocytes # (Manual) (0.0-0.8) Nucleated RBCs # K/uL Hypersegmented Neuts Platelet Estimate Sodium (136-145) mmol/L Potassium (3.5-5.1) mmol/L Chloride (98-107) mmol/L Carbon Dioxide (21.0-32.0) mmol/L BUN (7.0-18.0) mg/dL Creatinine (0.6-1.0) mg/dL Est Cr Clr Drug Dosing mL/min Estimated GFR (MDRD) ml/min Glucose (74-106) mg/dL POC Glucose 167 H (70-99) mg/dL Calcium (8.5-10.1) mg/dL Total Bilirubin (0.2-1.0) mg/dL AST (15-37) IU/L ALT (14-63) IU/L Alkaline Phosphatase (46-116) U/L Total Protein (6.4-8.2) g/dL Albumin (3.4-5.0) g/dL Globulin (2.6-4.0) g/dL Albumin/Globulin Ratio (0.9-1.6) Med Orders - Current: Current Medications Albuterol/Ipratropium (Albuterol/Ipratropium 3.0-0.5 Mg/3 Ml Neb Soln) 3 ml NEB Q6HRRT [facility] Last Admin: 04/17/21 11:56 Dose: 3 ml Documented by: Amlodipine Besylate (Amlodipine 5 Mg Tab) 5 mg PO DAILY [facility] Last Admin: 04/17/21 08:34 Dose: 5 mg Documented by: Atorvastatin Calcium (Atorvastatin 20 Mg Tab) 20 mg PO BEDTIME [facility] Last Admin: 04/16/21 21:30 Dose: Not Given Documented by: Baricitinib (Baricitinib 2 Mg Tab) 1 mg PO Q24H [facility] Last Admin: 04/16/21 18:04 Dose: 1 mg Documented by: Dexamethasone (Dexamethasone 4 Mg Tab) 6 mg PO DAILY [facility] Last Admin: 04/17/21 08:33 Dose: 6 mg Documented by: Dextrose/Water (50% Dextrose In Water 50 Ml Syringe) 50 ml IVPUSH ASDIRECTED PRN PRN Reason: Hypoglycemia Enoxaparin Sodium (Enoxaparin 30 Mg/0.3 Ml Syringe) 30 mg SUBCUT Q24H [facility] Last Admin: 04/17/21 08:40 Dose: 30 mg Documented by: Glucagon (Glucagon,Human Recombinant 1 Mg Vial) 1 mg IM ASDIRECTED PRN PRN Reason: Hypoglycemia Cefepime HCl 2 gm/ Premix 50 mls @ 100 mls/hr IV Q24H [facility] Last Admin: 04/16/21 14:14 Dose: 100 mls/hr Documented by: Levofloxacin/Dextrose 500 mg/ (Premix) 100 mls @ 66.667 mls/hr IV Q48H [facility] Insulin Aspart (Insulin Aspart 100 Units/Ml 3 Ml Pen) 0 unit SUBCUT QIDACANDBED [facility]; Protocol Last Admin: 04/17/21 08:32 Dose: 1 unit Documented by: Losartan Potassium (Losartan 50 Mg Tab) 50 mg PO BEDTIME [facility] Last Admin: 04/16/21 21:30 Dose: Not Given Documented by: Metoprolol Succinate (Metoprolol Succinate 50 Mg Tab.Er) 50 mg PO DAILY [facility] Last Admin: 04/17/21 08:34 Dose: 50 mg Documented by: Nystatin (Nystatin Topical Powder 15 Gm Bottle) 1 gm TOP BID [facility] Last Admin: 04/17/21 08:42 Dose: 1 applic Documented by: Pantoprazole Sodium (Pantoprazole 40 Mg Tab.Cr) 40 mg PO DAILY [facility] Last Admin: 04/17/21 08:34 Dose: 40 mg Documented by: Vancomycin HCl (Pharmacy To Dose - Vancomycin) 1 dose .XX ASDIRECTED [facility] Discontinued Medications Albuterol/Ipratropium (Albuterol/Ipratropium 3.0-0.5 Mg/3 Ml Neb Soln) 3 ml NEB Q4HRRT [facility] Last Admin: 04/12/21 13:49 Dose: 3 ml Documented by: Remdesivir 200 mg/ Sodium (Chloride) 250 mls @ 250 mls/hr IV ONETIME ONE Stop: 04/08/21 15:14 Last Admin: 04/08/21 14:51 Dose: 250 mls/hr Documented by: Remdesivir 100 mg/ Sodium (Chloride) 100 mls @ 100 mls/hr IV Q24H [facility] Stop: 04/12/21 14:59 Last Admin: 04/12/21 14:25 Dose: 100 mls/hr Documented by: Sodium Chloride (Sodium Chloride 0.45%) 1,000 mls @ 125 mls/hr IV ASDIRECTED [facility] Last Infusion: 04/09/21 13:57 Dose: 0 mls/hr Documented by: Dextrose/Water (Dextrose 5% In Water) 500 mls @ 50 mls/hr IV ASDIRECTED [facility] Stop: 04/11/21 20:14 Sodium Chloride (Sodium Chloride 0.45%) 1,000 mls @ 100 mls/hr IV ASDIRECTED [facility] Stop: 04/13/21 14:00 Last Admin: 04/13/21 09:59 Dose: 100 mls/hr Documented by: Levofloxacin/Dextrose 750 mg/ (Premix) 150 mls @ 100 mls/hr IV ONETIME ONE Stop: 04/16/21 15:59 Last Admin: 04/16/21 15:06 Dose: 100 mls/hr Documented by: Vancomycin HCl 1.25 gm/ Sodium (Chloride) 250 mls @ 166.667 mls/hr IV ONETIME ONE Stop: 04/16/21 17:29 Last Admin: 04/16/21 16:49 Dose: 166.667 mls/hr Documented by: - Exam General: No Acute Distress Lungs: Normal Respiratory Effort, Rhonchi Cardiovascular: Regular Rate, Regular Rhythm GI/Abdominal Exam: Soft, Non-Tender Extremities: Non-Tender, No Pedal Edema Skin: Warm, Dry, Intact - Patient Data Lab Results Last 24 hrs: Laboratory Results - last 24 hr 04/16/21 04/16/21 04/16/21 Range/Units 12:18 17:54 21:34 WBC (4.0-11.0) K/uL RBC (4.30-5.90) M/uL Hgb (12.0-16.0) g/dL Hct (36.0-46.0) % MCV (80.0-98.0) fL MCH (27.0-32.0) pg MCHC (31.0-37.0) g/dL RDW Std Deviation (28.0-62.0) fl RDW Coeff of Win (11.0-15.0) % Plt Count (150-400) K/uL MPV (7.40-12.00) fL Add Manual Diff Neutrophils % (Manual) (48.0-80.0) % Band Neutrophils % % Lymphocytes % (Manual) (16.0-40.0) % Monocytes % (Manual) (0.0-15.0) % Nucleated RBC % /100WBC Absolute Seg Neuts (1.4-5.7) Band Neutrophils # Lymphocytes # (Manual) (0.6-2.4) Monocytes # (Manual) (0.0-0.8) Nucleated RBCs # K/uL Hypersegmented Neuts Platelet Estimate Sodium (136-145) mmol/L Potassium (3.5-5.1) mmol/L Chloride (98-107) mmol/L Carbon Dioxide (21.0-32.0) mmol/L BUN (7.0-18.0) mg/dL Creatinine (0.6-1.0) mg/dL Est Cr Clr Drug Dosing mL/min Estimated GFR (MDRD) ml/min Glucose (74-106) mg/dL POC Glucose 160 H 211 H 219 H (70-99) mg/dL Calcium (8.5-10.1) mg/dL Total Bilirubin (0.2-1.0) mg/dL AST (15-37) IU/L ALT (14-63) IU/L Alkaline Phosphatase (46-116) U/L Total Protein (6.4-8.2) g/dL Albumin (3.4-5.0) g/dL Globulin (2.6-4.0) g/dL Albumin/Globulin Ratio (0.9-1.6) 04/17/21 04/17/21 04/17/21 Range/Units 06:14 06:14 06:30 WBC 16.51 H (4.0-11.0) K/uL RBC 4.98 (4.30-5.90) M/uL Hgb 14.6 (12.0-16.0) g/dL Hct 44.0 (36.0-46.0) % MCV 88.4 (80.0-98.0) fL MCH 29.3 (27.0-32.0) pg MCHC 33.2 (31.0-37.0) g/dL RDW Std Deviation 51.5 (28.0-62.0) fl RDW Coeff of Win 16 H (11.0-15.0) % Plt Count 92 L (150-400) K/uL MPV 11.90 (7.40-12.00) fL Add Manual Diff YES Neutrophils % (Manual) 97 H (48.0-80.0) % Band Neutrophils % 1 % Lymphocytes % (Manual) 1 L (16.0-40.0) % Monocytes % (Manual) 1 (0.0-15.0) % Nucleated RBC % 0.0 /100WBC Absolute Seg Neuts 16.0 H (1.4-5.7) Band Neutrophils # 0.2 Lymphocytes # (Manual) 0.2 L (0.6-2.4) Monocytes # (Manual) 0.2 (0.0-0.8) Nucleated RBCs # 0 K/uL Hypersegmented Neuts MODERATE Platelet Estimate DECREASED Sodium 141 (136-145) mmol/L Potassium 6.5 H (3.5-5.1) mmol/L Chloride 111 H (98-107) mmol/L Carbon Dioxide 13.7 L (21.0-32.0) mmol/L BUN 136 H (7.0-18.0) mg/dL Creatinine 5.2 H (0.6-1.0) mg/dL Est Cr Clr Drug Dosing 6.86 mL/min Estimated GFR (MDRD) 7.8 ml/min Glucose 175 H (74-106) mg/dL POC Glucose 156 H (70-99) mg/dL Calcium 8.0 L (8.5-10.1) mg/dL Total Bilirubin 0.9 (0.2-1.0) mg/dL AST 68 H (15-37) IU/L ALT 76 H (14-63) IU/L Alkaline Phosphatase 61 (46-116) U/L Total Protein 6.0 L (6.4-8.2) g/dL Albumin 2.0 L (3.4-5.0) g/dL Globulin 4.0 (2.6-4.0) g/dL Albumin/Globulin Ratio 0.5 L (0.9-1.6) 04/17/ Range/Units 11:15 WBC (4.0-11.0) K/uL RBC (4.30-5.90) M/uL Hgb (12.0-16.0) g/dL Hct (36.0-46.0) % MCV (80.0-98.0) fL MCH (27.0-32.0) pg MCHC (31.0-37.0) g/dL RDW Std Deviation (28.0-62.0) fl RDW Coeff of Win (11.0-15.0) % Plt Count (150-400) K/uL MPV (7.40-12.00) fL Add Manual Diff Neutrophils % (Manual) (48.0-80.0) % Band Neutrophils % % Lymphocytes % (Manual) (16.0-40.0) % Monocytes % (Manual) (0.0-15.0) % Nucleated RBC % /100WBC Absolute Seg Neuts (1.4-5.7) Band Neutrophils # Lymphocytes # (Manual) (0.6-2.4) Monocytes # (Manual) (0.0-0.8) Nucleated RBCs # K/uL Hypersegmented Neuts Platelet Estimate Sodium (136-145) mmol/L Potassium (3.5-5.1) mmol/L Chloride (98-107) mmol/L Carbon Dioxide (21.0-32.0) mmol/L BUN (7.0-18.0) mg/dL Creatinine (0.6-1.0) mg/dL Est Cr Clr Drug Dosing mL/min Estimated GFR (MDRD) ml/min Glucose (74-106) mg/dL POC Glucose 167 H (70-99) mg/dL Calcium (8.5-10.1) mg/dL Total Bilirubin (0.2-1.0) mg/dL AST (15-37) IU/L ALT (14-63) IU/L Alkaline Phosphatase (46-116) U/L Total Protein (6.4-8.2) g/dL Albumin (3.4-5.0) g/dL Globulin (2.6-4.0) g/dL Albumin/Globulin Ratio (0.9-1.6) Result Diagrams: 04/17/21 06:14 04/17/21 06:14 Sepsis Event Note - Evaluation Sepsis Screening Result: Possible Sepsis Risk - Focused Exam Vital Signs: Vital Signs Temp Pulse Pulse Resp BP BP BP 04/17/21 11:00 36.7 C 100 24 H 115/61 04/17/21 08:34 88 120/61 04/17/21 07:21 36.4 C 87 24 H 120/61 04/17/21 04:00 36.8 C 99 16 105/66 Pulse Ox 04/17/21 11:00 97 04/17/21 08:34 04/17/21 07:21 98 04/17/21 04:00 96 - Problem List & Annotations (1) Acute respiratory failure due to COVID-19 SNOMED Code(s): 870301842 Code(s): U07.1 - COVID-19; J96.00 - ACUTE RESPIRATORY FAILURE, UNSP W HYPOXIA OR HYPERCAPNIA Status: Acute Current Visit: No (2) Pneumonia due to COVID-19 virus SNOMED Code(s): 909242717451413392 Code(s): U07.1 - COVID-19; J12.82 - PNEUMONIA DUE TO CORONAVIRUS DISEASE 2019 Status: Acute Current Visit: No - Problem List Review Problem List Initiated/Reviewed/Updated: Yes - My Orders Last 24 Hours: My Active Orders 04/16/21 13:45 Cefepime [Maxipime in D5W 2 GM/50 ML] 2 gm Premix Bag 1 bag IV Q24H Pharmacy to Dose - Vancomycin 1 dose .XX ASDIRECTED 04/17/21 12:18 Morphine 2 mg IVPUSH Q1H PRN Comfort Measures [OM.PC] Routine Code Status [Resuscitation Status] Routine 04/17/21 15:00 VANCOMYCIN TROUGH [CHEM] Routine 04/18/21 14:30 Levofloxacin/Dextrose 5%-Water [Levaquin in D5W 500 MG/100 ML] 500 mg Premix Bag 1 bag IV Q48H - Plan Plan:: 85 yo female admitted with COVID with hypoxia and has now developed renal failure. After speaking with family will make palliative care, with comfort measures only.
[2021-04-17] MEDS: Cefepime 2 GM in Premix Bag 1 BAG IV SCH (14:14)
[2021-04-17] MEDS ORDERED: Albuterol/Ipratropium 3.0-0.5 MG/3 ML Neb Soln NEB PRN (17:18)
[2021-04-18] MEDS: Insulin Aspart 100 Units/ML 3 ML Pen SUBCUT SCH ×4 (08:54→21:18)
[2021-04-18] MEDS: Nystatin Topical Powder 15 GM Bottle TOP SCH ×2 (09:54→21:18)
--- NOTE | 2021-04-18 13:44 | PCM.PN ---
- General Info Date of Service: 04/18/21 - Review of Systems Systems Review Comment:: denies any pain, not swallowing food - Patient Data Vitals - Most Recent: Last Vital Signs Temp 35.9 C L 04/18/21 12:00 Pulse 94 04/18/21 12:00 Resp 24 H 04/18/21 12:00 BP 138/67 04/18/21 12:00 Pulse Ox 93 L 04/18/21 12:00 Weight - Most Recent: 88.042 kg I&O - Last 24 Hours: Intake & Output 04/17/21 04/18/21 04/18/21 22:59 06:59 14:59 Intake Total 250 400 Balance 250 400 Lab Results Last 24 Hours: Laboratory Results - last 24 hr 04/17/21 04/17/21 04/18/21 Range/Units 15:10 20:46 12:00 POC Glucose 240 H 122 H (70-99) mg/dL Vancomycin Trough 18.5 H (5.0-10.0) ug/mL Med Orders - Current: Current Medications Albuterol/Ipratropium (Albuterol/Ipratropium 3.0-0.5 Mg/3 Ml Neb Soln) 3 ml NEB Q6HRRT PRN PRN Reason: Shortness of Breath Dextrose/Water (50% Dextrose In Water 50 Ml Syringe) 50 ml IVPUSH ASDIRECTED PRN PRN Reason: Hypoglycemia Glucagon (Glucagon,Human Recombinant 1 Mg Vial) 1 mg IM ASDIRECTED PRN PRN Reason: Hypoglycemia Cefepime HCl 2 gm/ Premix 50 mls @ 100 mls/hr IV Q24H [facility] Last Admin: 04/17/21 14:14 Dose: 100 mls/hr Documented by: Levofloxacin/Dextrose 500 mg/ (Premix) 100 mls @ 66.667 mls/hr IV Q48H [facility] Insulin Aspart (Insulin Aspart 100 Units/Ml 3 Ml Pen) 0 unit SUBCUT QIDACANDBED [facility]; Protocol Last Admin: 04/18/21 12:04 Dose: Not Given Documented by: Morphine Sulfate (Morphine 2 Mg/Ml Syringe) 2 mg IVPUSH Q1H PRN PRN Reason: Pain Nystatin (Nystatin Topical Powder 15 Gm Bottle) 1 gm TOP BID [facility] Last Admin: 04/18/21 09:54 Dose: 1 applic Documented by: Vancomycin HCl (Pharmacy To Dose - Vancomycin) 1 dose .XX ASDIRECTED [facility] Discontinued Medications Albuterol/Ipratropium (Albuterol/Ipratropium 3.0-0.5 Mg/3 Ml Neb Soln) 3 ml NEB Q4HRRT [facility] Last Admin: 04/12/21 13:49 Dose: 3 ml Documented by: Albuterol/Ipratropium (Albuterol/Ipratropium 3.0-0.5 Mg/3 Ml Neb Soln) 3 ml NEB Q6HRRT [facility] Last Admin: 04/17/21 11:56 Dose: 3 ml Documented by: Amlodipine Besylate (Amlodipine 5 Mg Tab) 5 mg PO DAILY [facility] Last Admin: 04/17/21 08:34 Dose: 5 mg Documented by: Atorvastatin Calcium (Atorvastatin 20 Mg Tab) 20 mg PO BEDTIME [facility] Last Admin: 04/16/21 21:30 Dose: Not Given Documented by: Baricitinib (Baricitinib 2 Mg Tab) 1 mg PO Q24H [facility] Last Admin: 04/16/21 18:04 Dose: 1 mg Documented by: Dexamethasone (Dexamethasone 4 Mg Tab) 6 mg PO DAILY [facility] Last Admin: 04/17/21 08:33 Dose: 6 mg Documented by: Enoxaparin Sodium (Enoxaparin 30 Mg/0.3 Ml Syringe) 30 mg SUBCUT Q24H [facility] Last Admin: 04/17/21 08:40 Dose: 30 mg Documented by: Remdesivir 200 mg/ Sodium (Chloride) 250 mls @ 250 mls/hr IV ONETIME ONE Stop: 04/08/21 15:14 Last Admin: 04/08/21 14:51 Dose: 250 mls/hr Documented by: Remdesivir 100 mg/ Sodium (Chloride) 100 mls @ 100 mls/hr IV Q24H [facility] Stop: 04/12/21 14:59 Last Admin: 04/12/21 14:25 Dose: 100 mls/hr Documented by: Sodium Chloride (Sodium Chloride 0.45%) 1,000 mls @ 125 mls/hr IV ASDIRECTED [facility] Last Infusion: 04/09/21 13:57 Dose: 0 mls/hr Documented by: Dextrose/Water (Dextrose 5% In Water) 500 mls @ 50 mls/hr IV ASDIRECTED [facility] Stop: 04/11/21 20:14 Sodium Chloride (Sodium Chloride 0.45%) 1,000 mls @ 100 mls/hr IV ASDIRECTED [facility] Stop: 04/13/21 14:00 Last Admin: 04/13/21 09:59 Dose: 100 mls/hr Documented by: Levofloxacin/Dextrose 750 mg/ (Premix) 150 mls @ 100 mls/hr IV ONETIME ONE Stop: 04/16/21 15:59 Last Admin: 04/16/21 15:06 Dose: 100 mls/hr Documented by: Vancomycin HCl 1.25 gm/ Sodium (Chloride) 250 mls @ 166.667 mls/hr IV ONETIME ONE Stop: 04/16/21 17:29 Last Admin: 04/16/21 16:49 Dose: 166.667 mls/hr Documented by: Losartan Potassium (Losartan 50 Mg Tab) 50 mg PO BEDTIME [facility] Last Admin: 04/16/21 21:30 Dose: Not Given Documented by: Metoprolol Succinate (Metoprolol Succinate 50 Mg Tab.Er) 50 mg PO DAILY [facility] Last Admin: 04/17/21 08:34 Dose: 50 mg Documented by: Pantoprazole Sodium (Pantoprazole 40 Mg Tab.Cr) 40 mg PO DAILY [facility] Last Admin: 04/17/21 08:34 Dose: 40 mg Documented by: - Exam General: No Acute Distress Lungs: Normal Respiratory Effort, Rhonchi GI/Abdominal Exam: Soft, Non-Tender, No Distention Extremities: Non-Tender, No Pedal Edema Skin: Warm, Dry, Intact Neurological: No New Focal Deficit - Patient Data Lab Results Last 24 hrs: Laboratory Results - last 24 hr 04/17/21 04/17/21 04/18/21 Range/Units 15:10 20:46 12:00 POC Glucose 240 H 122 H (70-99) mg/dL Vancomycin Trough 18.5 H (5.0-10.0) ug/mL Result Diagrams: 04/17/21 06:14 04/17/21 06:14 Sepsis Event Note - Evaluation Sepsis Screening Result: Possible Sepsis Risk - Focused Exam Vital Signs: Vital Signs Temp Pulse Resp BP Pulse Ox 04/18/21 12:00 35.9 C L 94 24 H 138/67 93 L 04/18/21 08:00 36.3 C 88 24 H 146/73 H 91 L - Problem List & Annotations (1) Acute respiratory failure due to COVID-19 SNOMED Code(s): 889587770 Code(s): U07.1 - COVID-19; J96.00 - ACUTE RESPIRATORY FAILURE, UNSP W HYPOXIA OR HYPERCAPNIA Status: Acute Current Visit: No (2) Pneumonia due to COVID-19 virus SNOMED Code(s): 905098455310219239 Code(s): U07.1 - COVID-19; J12.82 - PNEUMONIA DUE TO CORONAVIRUS DISEASE 2019 Status: Acute Current Visit: No - Problem List Review Problem List Initiated/Reviewed/Updated: Yes - My Orders Last 24 Hours: My Active Orders 04/17/21 17:18 Albuterol/Ipratropium [DuoNeb 3.0-0.5 MG/3 ML] 3 ml NEB Q6HRRT PRN 04/18/21 13:41 BMP [BASIC METABOLIC PANEL,BMP] [CHEM] Routine 04/18/21 14:30 Levofloxacin/Dextrose 5%-Water [Levaquin in D5W 500 MG/100 ML] 500 mg Premix Bag 1 bag IV Q48H - Plan Plan:: 85 yo female admitted with COVID with respiratory failure and renal failure. hypoxia seems to be improving, We will continue comfort measures.
[2021-04-18] MEDS ORDERED: Levofloxacin/Dextrose 5%-Water 500 MG in Premix Bag 1 BAG IV SCH (14:30)
[2021-04-18] MEDS: Cefepime 2 GM in Premix Bag 1 BAG IV SCH (14:44)
[2021-04-18 14:45] LABS: CARBON DIOXIDE,CO2 14.2 mmol/L (21.0-32.0)
[2021-04-18 14:47] LABS: POTASSIUM,K 7.1 mmol/L (3.5-5.1)
[2021-04-19] MEDS: Morphine 2 MG/ML SYRINGE IVPUSH PRN ×5 (02:25→20:20)
[2021-04-19] MEDS: Insulin Aspart 100 Units/ML 3 ML Pen SUBCUT SCH ×3 (07:30→16:52)
[2021-04-19] MEDS: Nystatin Topical Powder 15 GM Bottle TOP SCH (08:37)
[2021-04-19 08:49] VITALS: PULSE 104
--- NOTE | 2021-04-19 14:16 | PCM.PN ---
- General Info Date of Service: 04/19/21 - Review of Systems Systems Review Comment:: nonverbal, appears to be resting comfortably - Patient Data Vitals - Most Recent: Last Vital Signs Temp 36.0 C L 04/19/21 08:00 Pulse 104 H 04/19/21 08:00 Resp 22 H 04/19/21 08:00 BP 91/47 L 04/19/21 08:00 Pulse Ox 93 L 04/19/21 08:00 Weight - Most Recent: 86.5 kg I&O - Last 24 Hours: Intake & Output 04/18/21 04/19/21 04/19/21 22:59 06:59 14:59 Intake Total 220 0 Output Total 200 Balance 20 0 Lab Results Last 24 Hours: Laboratory Results - last 24 hr 04/18/21 04/18/21 04/18/21 Range/Units 14:10 17:19 21:09 Sodium 143 (136-145) mmol/L Potassium 7.1 H* (3.5-5.1) mmol/L Chloride 112 H (98-107) mmol/L Carbon Dioxide 14.2 L (21.0-32.0) mmol/L BUN 168 H (7.0-18.0) mg/dL Creatinine 6.3 H (0.6-1.0) mg/dL Est Cr Clr Drug Dosing 5.66 mL/min Estimated GFR (MDRD) 6.3 ml/min Glucose 146 H (74-106) mg/dL POC Glucose 118 H 149 H (70-99) mg/dL Calcium 8.9 (8.5-10.1) mg/dL 04/19/21 Range/Units 07:01 Sodium (136-145) mmol/L Potassium (3.5-5.1) mmol/L Chloride (98-107) mmol/L Carbon Dioxide (21.0-32.0) mmol/L BUN (7.0-18.0) mg/dL Creatinine (0.6-1.0) mg/dL Est Cr Clr Drug Dosing mL/min Estimated GFR (MDRD) ml/min Glucose (74-106) mg/dL POC Glucose 164 H (70-99) mg/dL Calcium (8.5-10.1) mg/dL Med Orders - Current: Current Medications Albuterol/Ipratropium (Albuterol/Ipratropium 3.0-0.5 Mg/3 Ml Neb Soln) 3 ml NEB Q6HRRT PRN PRN Reason: Shortness of Breath Dextrose/Water (50% Dextrose In Water 50 Ml Syringe) 50 ml IVPUSH ASDIRECTED PRN PRN Reason: Hypoglycemia Glucagon (Glucagon,Human Recombinant 1 Mg Vial) 1 mg IM ASDIRECTED PRN PRN Reason: Hypoglycemia Insulin Aspart (Insulin Aspart 100 Units/Ml 3 Ml Pen) 0 unit SUBCUT QIDACANDBED [facility]; Protocol Last Admin: 04/19/21 12:08 Dose: Not Given Documented by: Morphine Sulfate (Morphine 2 Mg/Ml Syringe) 2 mg IVPUSH Q1H PRN PRN Reason: Pain Last Admin: 04/19/21 12:44 Dose: 2 mg Documented by: Nystatin (Nystatin Topical Powder 15 Gm Bottle) 1 gm TOP BID [facility] Last Admin: 04/19/21 08:37 Dose: 1 gm Documented by: Discontinued Medications Albuterol/Ipratropium (Albuterol/Ipratropium 3.0-0.5 Mg/3 Ml Neb Soln) 3 ml NEB Q4HRRT [facility] Last Admin: 04/12/21 13:49 Dose: 3 ml Documented by: Albuterol/Ipratropium (Albuterol/Ipratropium 3.0-0.5 Mg/3 Ml Neb Soln) 3 ml NEB Q6HRRT [facility] Last Admin: 04/17/21 11:56 Dose: 3 ml Documented by: Amlodipine Besylate (Amlodipine 5 Mg Tab) 5 mg PO DAILY [facility] Last Admin: 04/17/21 08:34 Dose: 5 mg Documented by: Atorvastatin Calcium (Atorvastatin 20 Mg Tab) 20 mg PO BEDTIME [facility] Last Admin: 04/16/21 21:30 Dose: Not Given Documented by: Baricitinib (Baricitinib 2 Mg Tab) 1 mg PO Q24H [facility] Last Admin: 04/16/21 18:04 Dose: 1 mg Documented by: Dexamethasone (Dexamethasone 4 Mg Tab) 6 mg PO DAILY [facility] Last Admin: 04/17/21 08:33 Dose: 6 mg Documented by: Enoxaparin Sodium (Enoxaparin 30 Mg/0.3 Ml Syringe) 30 mg SUBCUT Q24H [facility] Last Admin: 04/17/21 08:40 Dose: 30 mg Documented by: Remdesivir 200 mg/ Sodium (Chloride) 250 mls @ 250 mls/hr IV ONETIME ONE Stop: 04/08/21 15:14 Last Admin: 04/08/21 14:51 Dose: 250 mls/hr Documented by: Remdesivir 100 mg/ Sodium (Chloride) 100 mls @ 100 mls/hr IV Q24H [facility] Stop: 04/12/21 14:59 Last Admin: 04/12/21 14:25 Dose: 100 mls/hr Documented by: Sodium Chloride (Sodium Chloride 0.45%) 1,000 mls @ 125 mls/hr IV ASDIRECTED [facility] Last Infusion: 04/09/21 13:57 Dose: 0 mls/hr Documented by: Dextrose/Water (Dextrose 5% In Water) 500 mls @ 50 mls/hr IV ASDIRECTED [facility] Stop: 04/11/21 20:14 Sodium Chloride (Sodium Chloride 0.45%) 1,000 mls @ 100 mls/hr IV ASDIRECTED [facility] Stop: 04/13/21 14:00 Last Admin: 04/13/21 09:59 Dose: 100 mls/hr Documented by: Levofloxacin/Dextrose 750 mg/ (Premix) 150 mls @ 100 mls/hr IV ONETIME ONE Stop: 04/16/21 15:59 Last Admin: 04/16/21 15:06 Dose: 100 mls/hr Documented by: Cefepime HCl 2 gm/ Premix 50 mls @ 100 mls/hr IV Q24H [facility] Last Admin: 04/18/21 14:44 Dose: 100 mls/hr Documented by: Levofloxacin/Dextrose 500 mg/ (Premix) 100 mls @ 66.667 mls/hr IV Q48H [facility] Last Admin: 04/18/21 15:21 Dose: 66.667 mls/hr Documented by: Vancomycin HCl 1.25 gm/ Sodium (Chloride) 250 mls @ 166.667 mls/hr IV ONETIME ONE Stop: 04/16/21 17:29 Last Admin: 04/16/21 16:49 Dose: 166.667 mls/hr Documented by: Losartan Potassium (Losartan 50 Mg Tab) 50 mg PO BEDTIME [facility] Last Admin: 04/16/21 21:30 Dose: Not Given Documented by: Metoprolol Succinate (Metoprolol Succinate 50 Mg Tab.Er) 50 mg PO DAILY [facility] Last Admin: 04/17/21 08:34 Dose: 50 mg Documented by: Pantoprazole Sodium (Pantoprazole 40 Mg Tab.Cr) 40 mg PO DAILY [facility] Last Admin: 04/17/21 08:34 Dose: 40 mg Documented by: Vancomycin HCl (Pharmacy To Dose - Vancomycin) 1 dose .XX ASDIRECTED [facility] - Exam General: No Acute Distress Lungs: Normal Respiratory Effort Cardiovascular: Regular Rate, Regular Rhythm GI/Abdominal Exam: Soft Extremities: Non-Tender Skin: Warm, Dry, Intact Neurological: No New Focal Deficit - Patient Data Lab Results Last 24 hrs: Laboratory Results - last 24 hr 04/18/21 04/18/21 04/18/21 Range/Units 14:10 17:19 21:09 Sodium 143 (136-145) mmol/L Potassium 7.1 H* (3.5-5.1) mmol/L Chloride 112 H (98-107) mmol/L Carbon Dioxide 14.2 L (21.0-32.0) mmol/L BUN 168 H (7.0-18.0) mg/dL Creatinine 6.3 H (0.6-1.0) mg/dL Est Cr Clr Drug Dosing 5.66 mL/min Estimated GFR (MDRD) 6.3 ml/min Glucose 146 H (74-106) mg/dL POC Glucose 118 H 149 H (70-99) mg/dL Calcium 8.9 (8.5-10.1) mg/dL 04/19/21 Range/Units 07:01 Sodium (136-145) mmol/L Potassium (3.5-5.1) mmol/L Chloride (98-107) mmol/L Carbon Dioxide (21.0-32.0) mmol/L BUN (7.0-18.0) mg/dL Creatinine (0.6-1.0) mg/dL Est Cr Clr Drug Dosing mL/min Estimated GFR (MDRD) ml/min Glucose (74-106) mg/dL POC Glucose 164 H (70-99) mg/dL Calcium (8.5-10.1) mg/dL Result Diagrams: 04/17/21 06:14 04/18/21 14:10 Sepsis Event Note - Evaluation Sepsis Screening Result: Severe Sepsis Risk - Focused Exam Vital Signs: Vital Signs Temp Pulse Resp BP Pulse Ox 04/19/21 08:00 36.0 C L 104 H 22 H 91/47 L 93 L - Problem List & Annotations (1) Acute respiratory failure due to COVID-19 SNOMED Code(s): 611987906 Code(s): U07.1 - COVID-19; J96.00 - ACUTE RESPIRATORY FAILURE, UNSP W HYPOXIA OR HYPERCAPNIA Status: Acute Current Visit: No (2) Pneumonia due to COVID-19 virus SNOMED Code(s): 268115084283162377 Code(s): U07.1 - COVID-19; J12.82 - PNEUMONIA DUE TO CORONAVIRUS DISEASE 2019 Status: Acute Current Visit: No - Problem List Review Problem List Initiated/Reviewed/Updated: Yes - Plan Plan:: 85 yo female admitted with COVID with respiratory failure and renal failure. We will continue comfort measures.
[2021-04-19 20:26] VITALS: BP 55/27
--- NOTE | 2021-04-19 21:42 | PCM.DCSUM1 ---
Discharge Summary - Discharge Data Discharge Date: 04/19/21 Discharge Disposition: 20 Condition: Stable - Referral to Home Health Primary Care Physician: Louie Scruggs MD - Discharge Diagnosis/Problem(s) (1) Acute respiratory failure due to COVID-19 SNOMED Code(s): 872578632 ICD Code: U07.1 - COVID-19; J96.00 - ACUTE RESPIRATORY FAILURE, UNSP W HYPOXIA OR HYPERCAPNIA Status: Acute Current Visit: Yes (2) Pneumonia due to COVID-19 virus SNOMED Code(s): 180130426926944217 ICD Code: U07.1 - COVID-19; J12.82 - PNEUMONIA DUE TO CORONAVIRUS DISEASE 2019 Status: Acute Current Visit: Yes (3) Electrolyte abnormality SNOMED Code(s): 177612443 ICD Code: E87.8 - OTH DISORDERS OF ELECTROLYTE AND FLUID BALANCE, NEC Status: Acute Current Visit: Yes (4) HTN (hypertension) SNOMED Code(s): 47639380 ICD Code: I10 - ESSENTIAL (PRIMARY) HYPERTENSION Status: Acute Current Visit: Yes (5) Hyperlipidemia SNOMED Code(s): 83359365 ICD Code: E78.5 - HYPERLIPIDEMIA, UNSPECIFIED Status: Acute Current Visit: Yes (6) Hypoxia SNOMED Code(s): 912298031 ICD Code: R09.02 - HYPOXEMIA Status: Acute Current Visit: Yes (7) Weakness SNOMED Code(s): 26170823 ICD Code: R53.1 - WEAKNESS Status: Acute Current Visit: Yes (8) Acute renal failure SNOMED Code(s): 08473505 ICD Code: N17.9 - ACUTE KIDNEY FAILURE, UNSPECIFIED Status: Acute Current Visit: Yes - Patient Summary/Data Consults: Consultations 04/08/21 13:32 OT Evaluation and Treatment [CONS] Routine PT Evaluation and Treatment [CONS] Routine Hospital Course: The patient is a 85-year-old female, on day 1 of service, who has a significant past medical history of hypertension, hyperlipidemia, COPD, obesity, and chronic renal insufficiency who presented with generalized weakness and shortness of breath. Patient had recently been discharged five days ago after an overnight stay in hospital for COVID-19 infection. Patient's shortness of breath and weakness had worsened. On admission she was requring 4 L NC. chest x-ray showed slight patchy opacities in lung bases that had worsened. her dexamethasone was continued and her remdesivir was resumed. She did have worsening hypoxia and was transferred to the ICU for HHFNC and cpap. Barcitinib was renally dosed. She did initially had some improvement in her oxygenation and renal function but then continued to declined. After speaking with family patient was made comfort care only. Patient and family has been notified - Discharge Plan Home Medications: Home Meds Losartan Potassium 50 mg PO BEDTIME 01/06/16 [History] Metoprolol Succinate 50 mg PO DAILY 01/06/16 [History] atorvaSTATin [Lipitor] 20 mg PO BEDTIME 04/02/21 [History] Erythromycin Base [Erythromycin 0.5% Ophth Oint] 1 dose DAILY 04/07/21 [History] amLODIPine [Norvasc] 5 mg PO DAILY 04/07/21 [History] Patient Handouts: Hypoxia, How to Protect Yourself and Others - [facility] (12/12/2020), Frequently Asked Questions About COVID-19 Vaccination - [facility] (01/02/2021), Infection Prevention in the Home Referrals: Louie Scruggs MD [Primary Care Provider] - 04/22/21 1:00 pm - Discharge Summary/Plan Comment DC Time >30 min.: No Total # of Minutes for Discharge Time: 15 - Patient Data Vitals - Most Recent: Last Vital Signs Temp 36.5 C 04/19/21 20:00 Pulse 104 H 04/19/21 20:00 Resp 28 H 04/19/21 20:00 BP 55/27 L 04/19/21 20:00 Pulse Ox 85 L 04/19/21 20:00 Weight - Most Recent: 86.5 kg I&O - Last 24 hours: Intake & Output 04/19/21 04/19/21 04/19/21 06:59 14:59 22:59 Intake Total 0 0 Output Total 56 Balance 0 -56 Lab Results - Last 24 hrs: Laboratory Results - last 24 hr 04/19/21 Range/Units 07:01 POC Glucose 164 H (70-99) mg/dL Med Orders - Current: Current Medications Albuterol/Ipratropium (Albuterol/Ipratropium 3.0-0.5 Mg/3 Ml Neb Soln) 3 ml NEB Q6HRRT PRN PRN Reason: Shortness of Breath Dextrose/Water (50% Dextrose In Water 50 Ml Syringe) 50 ml IVPUSH ASDIRECTED PRN PRN Reason: Hypoglycemia Glucagon (Glucagon,Human Recombinant 1 Mg Vial) 1 mg IM ASDIRECTED PRN PRN Reason: Hypoglycemia Insulin Aspart (Insulin Aspart 100 Units/Ml 3 Ml Pen) 0 unit SUBCUT QIDACANDBED [facility]; Protocol Last Admin: 04/19/21 16:52 Dose: Not Given Documented by: Morphine Sulfate (Morphine 2 Mg/Ml Syringe) 2 mg IVPUSH Q1H PRN PRN Reason: Pain Last Admin: 04/19/21 20:20 Dose: 2 mg Documented by: Nystatin (Nystatin Topical Powder 15 Gm Bottle) 1 gm TOP BID [facility] Last Admin: 04/19/21 08:37 Dose: 1 gm Documented by: Discontinued Medications Albuterol/Ipratropium (Albuterol/Ipratropium 3.0-0.5 Mg/3 Ml Neb Soln) 3 ml NEB Q4HRRT [facility] Last Admin: 04/12/21 13:49 Dose: 3 ml Documented by: Albuterol/Ipratropium (Albuterol/Ipratropium 3.0-0.5 Mg/3 Ml Neb Soln) 3 ml NEB Q6HRRT [facility] Last Admin: 04/17/21 11:56 Dose: 3 ml Documented by: Amlodipine Besylate (Amlodipine 5 Mg Tab) 5 mg PO DAILY [facility] Last Admin: 04/17/21 08:34 Dose: 5 mg Documented by: Atorvastatin Calcium (Atorvastatin 20 Mg Tab) 20 mg PO BEDTIME [facility] Last Admin: 04/16/21 21:30 Dose: Not Given Documented by: Baricitinib (Baricitinib 2 Mg Tab) 1 mg PO Q24H [facility] Last Admin: 04/16/21 18:04 Dose: 1 mg Documented by: Dexamethasone (Dexamethasone 4 Mg Tab) 6 mg PO DAILY [facility] Last Admin: 04/17/21 08:33 Dose: 6 mg Documented by: Enoxaparin Sodium (Enoxaparin 30 Mg/0.3 Ml Syringe) 30 mg SUBCUT Q24H [facility] Last Admin: 04/17/21 08:40 Dose: 30 mg Documented by: Remdesivir 200 mg/ Sodium (Chloride) 250 mls @ 250 mls/hr IV ONETIME ONE Stop: 04/08/21 15:14 Last Admin: 04/08/21 14:51 Dose: 250 mls/hr Documented by: Remdesivir 100 mg/ Sodium (Chloride) 100 mls @ 100 mls/hr IV Q24H [facility] Stop: 04/12/21 14:59 Last Admin: 04/12/21 14:25 Dose: 100 mls/hr Documented by: Sodium Chloride (Sodium Chloride 0.45%) 1,000 mls @ 125 mls/hr IV ASDIRECTED [facility] Last Infusion: 04/09/21 13:57 Dose: 0 mls/hr Documented by: Dextrose/Water (Dextrose 5% In Water) 500 mls @ 50 mls/hr IV ASDIRECTED [facility] Stop: 04/11/21 20:14 Sodium Chloride (Sodium Chloride 0.45%) 1,000 mls @ 100 mls/hr IV ASDIRECTED [facility] Stop: 04/13/21 14:00 Last Admin: 04/13/21 09:59 Dose: 100 mls/hr Documented by: Levofloxacin/Dextrose 750 mg/ (Premix) 150 mls @ 100 mls/hr IV ONETIME ONE Stop: 04/16/21 15:59 Last Admin: 04/16/21 15:06 Dose: 100 mls/hr Documented by: Cefepime HCl 2 gm/ Premix 50 mls @ 100 mls/hr IV Q24H [facility] Last Admin: 04/18/21 14:44 Dose: 100 mls/hr Documented by: Levofloxacin/Dextrose 500 mg/ (Premix) 100 mls @ 66.667 mls/hr IV Q48H [facility] Last Admin: 04/18/21 15:21 Dose: 66.667 mls/hr Documented by: Vancomycin HCl 1.25 gm/ Sodium (Chloride) 250 mls @ 166.667 mls/hr IV ONETIME ONE Stop: 04/16/21 17:29 Last Admin: 04/16/21 16:49 Dose: 166.667 mls/hr Documented by: Losartan Potassium (Losartan 50 Mg Tab) 50 mg PO BEDTIME [facility] Last Admin: 04/16/21 21:30 Dose: Not Given Documented by: Metoprolol Succinate (Metoprolol Succinate 50 Mg Tab.Er) 50 mg PO DAILY [facility] Last Admin: 04/17/21 08:34 Dose: 50 mg Documented by: Pantoprazole Sodium (Pantoprazole 40 Mg Tab.Cr) 40 mg PO DAILY [facility] Last Admin: 04/17/21 08:34 Dose: 40 mg Documented by: Vancomycin HCl (Pharmacy To Dose - Vancomycin) 1 dose .XX ASDIRECTED [facility]
== END 2021-04-19 23:50 | disposition expired | DRG 177 ==
LOC: MW.ED 19:43 → MW.MS 22:07 → OBSVTOIN 04-08 13:23 → MW.MS 04-08 19:04 → MW.ICU 04-10 19:24 → MW.MS 04-12 15:40
PROVIDERS: ADMIT Internal Medicine; ATTEND Internal Medicine
PROC: 3E0DX3Z Introduction of Anti-inflammatory into Mouth and Pharynx, External Approach (ICD-10-PCS; 2021-04-09)
PROC: XW0DXM6 Introduction of Baricitinib into Mouth and Pharynx, External Approach, New Technology Group 6 (ICD-10-PCS; 2021-04-10)
PROC: 5A0955A Assistance with Respiratory Ventilation, Greater than 96 Consecutive Hours, High Flow/Velocity Cannula (ICD-10-PCS; 2021-04-12)
PROC: XW033E5 Introduction of Remdesivir Anti-infective into Peripheral Vein, Percutaneous Approach, New Technology Group 5 (ICD-10-PCS; principal; 2021-04-16)
PROC: 5A09457 Assistance with Respiratory Ventilation, 24-96 Consecutive Hours, Continuous Positive Airway Pressure (ICD-10-PCS; 2021-04-16)
DX: U07.1 COVID-19 (principal); J96.01 Acute respiratory failure with hypoxia; R53.1 Weakness; J12.82 Pneumonia due to coronavirus disease 2019; N17.9 Acute kidney failure, unspecified; I11.9 Hypertensive heart disease without heart failure; E87.0 Hyperosmolality and hypernatremia; Z66 Do not resuscitate; E78.5 Hyperlipidemia, unspecified; Z51.5 Encounter for palliative care; Z79.899 Other long term (current) drug therapy; I12.9 Hypertensive chronic kidney disease with stage 1 through stage 4 chronic kidney disease, or unspecified chronic kidney disease; N18.9 Chronic kidney disease, unspecified; Z88.0 Allergy status to penicillin; E78.00 Pure hypercholesterolemia, unspecified; Z87.891 Personal history of nicotine dependence; K59.09 Other constipation; M19.90 Unspecified osteoarthritis, unspecified site; E66.9 Obesity, unspecified; Z98.49 Cataract extraction status, unspecified eye; Z90.710 Acquired absence of both cervix and uterus; Z90.49 Acquired absence of other specified parts of digestive tract; R73.9 Hyperglycemia, unspecified; E87.5 Hyperkalemia; Z68.31 Body mass index [BMI] 31.0-31.9, adult
CPT/HCPCS: 36415; 71045; 71045-26; 80048; 80053; 80202; 81001; 82947; 83605; 84145; 84484; 85025; 86140; 87040; 93005; 93010; 94640; 94660; 96372; 97163-GP; 97530-GP; 99285-25; A9270-GY; G0378; J0692; J1650; J1815-GY; J1956; J2270; J3370; J7050; J7620-GY; J8540